=== PATIENT | female | born 1935 | race Hispanic/Latino ===

== ENCOUNTER 2017-01-10 00:49 | Emergency (ER) | payer MEDICARE ==
[2017-01-10 00:49] VITALS: BMI 33.6
--- NOTE | 2017-01-10 01:33 | C.PDOC ---
History Of Present Illness Patient is a 81 year old female who presents to the ER with a complaint of right knee pain. Patient states she has had chronic pain on the right knee for weeks. Denies any recent injury or trauma. Chief Complaint (Nursing): Lower Extremity Problem/Injury History Per: Patient History/Exam Limitations: no limitations Onset/Duration Of Symptoms: Days (Chronic pain on right knee for weeks ) Current Symptoms Are (Timing): Still Present Severity: Mild Additional History Per: Patient Past Medical History Reviewed: Historical Data, Nursing Documentation, Vital Signs Vital Signs: Last Vital Signs Temp 97.4 F L 01/10/17 00:59 Pulse 79 01/10/17 00:59 Resp 20 01/10/17 00:59 BP 139/74 01/10/17 00:59 Pulse Ox 96 01/10/17 01:38 - Medical History PMH: Anxiety, Arthritis, Atrial Fibrillation, Cardia Arrhythmia, COPD, Depression, Diverticulitis, Gastritis, HTN, Hypercholesterolemia, Chronic Kidney Disease Surgical History: Hernia Repair - [facility] Procedures APPLICATION OF SPLINT (09/06/13) VACCINATION NEC (11/20/14) Family History: States: Unknown Family Hx - Social History Hx Tobacco Use: No Hx Alcohol Use: No Hx Substance Use: No - Immunization History Hx Tetanus Toxoid Vaccination: No Hx Influenza Vaccination: No Hx Pneumococcal Vaccination: Yes Review Of Systems Except As Marked, All Systems Reviewed And Found Negative. Constitutional: Negative for: Fever, Chills Musculoskeletal: Positive for: Leg Pain (Right knee pain) Physical Exam - Physical Exam Appears: Well, Non-toxic, Other (Mild distress) Skin: Normal Color, Warm, Dry Head: Atraumatic, Normacephalic Oral Mucosa: Moist Cardiovascular: Rhythm Regular Respiratory: Normal Breath Sounds, No Accessory Muscle Use, No Rales, No Rhonchi , No Wheezing Gastrointestinal/Abdominal: Soft, No Tenderness, No Distention, No Guarding, No Rebound Extremity: Pedal Edema, Swelling (Right knee) Neurological/Psych: Oriented x3, Normal Speech, Normal Cognition ED Course And Treatment - Laboratory Results Result Diagrams: 01/10/17 02:45 01/10/17 02:45 O2 Sat by Pulse Oximetry: 96 (Room air) Pulse Ox Interpretation: Normal Progress Note: Blood work, X-ray of right knee, and urinalysis ordered. Toradol IM administered. Disposition Counseled Patient/Family Regarding: Diagnosis - Disposition Referrals: [facility] [Outside] Disposition: HOME/ ROUTINE Disposition Time: 03:59 Condition: STABLE Prescriptions: Naproxen [Naprosyn Tab] 375 mg PO TIDPC #20 tab Instructions: Knee Pain (ED), Swollen Knee Joint (ED) - POA Present On Arrival: None - Clinical Impression Clinical Impression: Joint pain, Joint swelling - Scribe Statement The provider has reviewed the documentation as recorded by the Scribfestus Lara All medical record entries made by the Madihaibfestus were at my direction and personally dictated by me. I have reviewed the chart and agree that the record accurately reflects my personal performance of the history, physical exam, medical decision making, and the department course for this patient. I have also personally directed, reviewed, and agree with the discharge instructions and disposition.
[2017-01-10 02:49] LABS: BASO % 0.2 % (0.0-2.0); EOS # 0.7 K/uL (0.0-0.7); EOS % 8.5 % (0.0-4.0); HEMATOCRIT 33.5 % (34.0-47.0); LYMPH # 2.3 K/uL (1.0-4.3); LYMPH % 27.4 % (20.0-40.0); MEAN CELL VOLUME 90.8 fL (81.0-99.0); MEAN CORPUSCULAR HEMOGLOBIN 30.8 pg (27.0-31.0); MEAN PLATELET VOLUME 8.1 fL (7.2-11.7); MONO # 1.2 K/uL (0.0-0.8); MONO % 14.3 % (0.0-10.0); RED CELL DISTRIBUTION WIDTH 13.8 % (11.5-14.5); WHITE BLOOD COUNT 8.4 K/uL (4.8-10.8)
[2017-01-10 02:57] LABS: CHLORIDE 104 mmol/L (98-107); POTASSIUM 4.3 mmol/L (3.6-5.2); SODIUM 139 mmol/L (132-148)
[2017-01-10 02:59] LABS: GFR AFRICAN-AMERICAN > 60
[2017-01-10 03:00] LABS: ALB/GLOB RATIO 0.7 (1.0-2.1); ALKALINE PHOSPHATASE 140 U/L (38-126); ALT/SGPT 35 U/L (9-52); AST/SGOT 23 U/L (14-36); BILIRUBIN,TOTAL 0.5 mg/dL (0.2-1.3); BLOOD UREA NITROGEN 25 mg/dL (7-17); CALCIUM 8.7 mg/dl (8.6-10.4); CARBON DIOXIDE 24 mmol/L (22-30); GLUCOSE,RANDOM 90 mg/dL (65-105); TOTAL PROTEIN 7.1 g/dL (6.3-8.3)
[2017-01-10 05:19] VITALS: BP 130/87; PULSE 72; RESP 18; TEMP 97.7; O2SAT 97
--- NOTE | 2017-01-10 16:26 | RAD ---
PROCEDURE: Right knee dated 01/10/2017. HISTORY: pain and swelling COMPARISON: None. FINDINGS: BONES: No evidence of acute displaced fracture nor dislocation. The osseous structures appear intact. Tricompartmental degenerative joint changes most notably affecting the medial and patellofemoral compartments. Medium sized anterior superior patella enthesophyte noted. There appears to be mild prepatellar soft tissue swelling. JOINTS: As above JOINT EFFUSION: Assessment for joint effusion is somewhat limited due to over flexion in the lateral projection however small suprapatellar joint effusion may be present OTHER FINDINGS: Diffuse infiltration changes of the subcutaneous fat nonspecific IMPRESSION: No acute fractures. Tricompartmental degenerative osteoarthritis as described
== END 2017-01-10 05:19 | disposition home or self-care (01) ==
LOC: C.ER 00:49
DX: M25.461 Effusion, right knee (principal); M25.561 Pain in right knee
CPT/HCPCS: 73562; 80053; 85025; 96372; 99284; J1885

== ENCOUNTER 2017-04-10 00:23 | Emergency (ER) | payer MEDICARE, OTHER ==
[2017-04-10 00:24] VITALS: BMI 33.6
[2017-04-10 00:36] VITALS: TEMP 98.1
--- NOTE | 2017-04-10 01:38 | C.PDOC ---
History Of Present Illness Patient is an 81 year old female who presents to the ER with a complaint of anxiety and palpitations. Patient states she took half of her usual xanax since she is running low and wants to ration them. Patient arrived via EMS and had 30 mg of cardizem [employer]. Patient has been seen in the ER before for multiple vague complaints. Denies chest pain, SOB or nausea. Time Seen by Provider: 04/10/17 01:31 Chief Complaint (Nursing): Anxiety History Per: Patient History/Exam Limitations: no limitations Onset/Duration Of Symptoms: Hrs Current Symptoms Are (Timing): Still Present Initiating Event: Other (Not known) Current Respiratory Medications: See Home Med List Associated Symptoms: Anxiety. denies: Chest Pain, Other (SOB, Nausea) Recent travel outside of the [place]: No Past Medical History Reviewed: Historical Data, Nursing Documentation, Vital Signs Vital Signs: Last Vital Signs Temp 98.1 F 04/10/17 00:29 Pulse 71 04/10/17 00:29 Resp 20 04/10/17 00:29 BP 196/107 H 04/10/17 00:29 Pulse Ox 95 04/10/17 01:38 - Medical History PMH: Anxiety, Arthritis, Atrial Fibrillation, Cardia Arrhythmia, COPD, Depression, Diverticulitis, Gastritis, HTN, Hypercholesterolemia, Chronic Kidney Disease Surgical History: Hernia Repair - [facility] Procedures APPLICATION OF SPLINT (09/06/13) VACCINATION NEC (11/20/14) Family History: States: Unknown Family Hx - Social History Hx Tobacco Use: No Hx Alcohol Use: No Hx Substance Use: No - Immunization History Hx Tetanus Toxoid Vaccination: No Hx Influenza Vaccination: No Hx Pneumococcal Vaccination: Yes Review Of Systems Cardiovascular: Positive for: Palpitations. Negative for: Chest Pain Respiratory: Negative for: Shortness of Breath Gastrointestinal: Negative for: Nausea Psych: Positive for: Anxiety Physical Exam - Physical Exam Appears: Non-toxic, No Acute Distress Skin: Normal Color, Warm, Dry Head: Atraumatic, Normacephalic Oral Mucosa: Moist Chest: Symmetrical, No Tenderness Cardiovascular: Rhythm Regular, No Murmur Respiratory: Normal Breath Sounds, No Rales, No Rhonchi, No Wheezing Gastrointestinal/Abdominal: Soft, No Tenderness Neurological/Psych: Oriented x3, Normal Speech, Normal Cognition ED Course And Treatment O2 Sat by Pulse Oximetry: 95 (Room air) Pulse Ox Interpretation: Normal Progress Note: Xanax administered. Patient is refusing blood work. Medical Decision Making Medical Decision Making: mild palpitations may be anxiety or mild elev HR, well controlled prior to arrival with pt's Cardizem 30 mg PO Anxiety underlying, pt is rationing her Xanax 0.5 mg tabs before getting refills from PMD Disposition Doctor Will See Patient In The: Office Counseled Patient/Family Regarding: Studies Performed, Diagnosis - Disposition Referrals: [facility] [Outside] [facility] [Outside] Disposition: HOME/ ROUTINE Disposition Time: 01:38 Condition: GOOD Additional Instructions: take your meds as you are prescribed Follow-up with your PMD as usual Instructions: Anxiety (ED) - Clinical Impression Clinical Impression: Palpitations, Anxiety - Scribe Statement The provider has reviewed the documentation as recorded by the Scribfestus Lara All medical record entries made by the Madihaibe were at my direction and personally dictated by me. I have reviewed the chart and agree that the record accurately reflects my personal performance of the history, physical exam, medical decision making, and the department course for this patient. I have also personally directed, reviewed, and agree with the discharge instructions and disposition.
[2017-04-10 01:54] VITALS: BP 150/62; PULSE 86; RESP 17; O2SAT 98
== END 2017-04-10 01:58 | disposition home or self-care (01) ==
LOC: C.ER 00:23
DX: F41.9 Anxiety disorder, unspecified (principal); R00.2 Palpitations

== ENCOUNTER 2017-04-27 12:40 | Observation (INO) | payer MEDICARE ==
[2017-04-27 12:46] VITALS: BMI 32.9
[2017-04-27 12:50] VITALS: RESP 18; O2SAT 96
--- NOTE | 2017-04-27 13:50 | C.PDOC ---
History Of Present Illness 81 y/o female, presents to ED with c/o sudden dizziness while laying in bed at 4 :00 AM this morning. Patient denies visual disturbances, chest pain, palpitations, shortness of breath. Patient states dizziness continued after waking up this morning, noting that dizziness worsens with head movement. Denies nausea, vomiting, photophobia, or other associated symptoms at this time. Time Seen by Provider: 04/27/17 13:26 Chief Complaint (Nursing): Dizziness/Lightheaded History Per: Patient History/Exam Limitations: no limitations Onset/Duration Of Symptoms: Hrs Current Symptoms Are (Timing): Still Present Activity At Onset Of Symptoms: Lying Associated Symptoms Preceding Syncopal Episode: No Predromal Symptoms (Sudden Onset) Seizure Or Post-ictal Symptoms: None Fall Associated With With Symptoms: No Recent travel outside of the [place]: No Past Medical History Reviewed: Historical Data, Nursing Documentation, Vital Signs Vital Signs: Last Vital Signs Temp 98 F 04/27/17 12:46 Pulse 57 L 04/27/17 12:46 Resp 18 04/27/17 12:46 BP 1438/67 H 04/27/17 12:46 Pulse Ox 96 04/27/17 13:52 - Medical History PMH: Anxiety, Arthritis, Atrial Fibrillation, Cardia Arrhythmia, COPD, Depression, Diverticulitis, Gastritis, HTN, Hypercholesterolemia, Chronic Kidney Disease Surgical History: Hernia Repair - [facility] Procedures APPLICATION OF SPLINT (09/06/13) VACCINATION NEC (11/20/14) Family History: States: Unknown Family Hx - Social History Hx Tobacco Use: No Hx Alcohol Use: No Hx Substance Use: No - Immunization History Hx Tetanus Toxoid Vaccination: No Hx Influenza Vaccination: No Hx Pneumococcal Vaccination: Yes Review Of Systems Except As Marked, All Systems Reviewed And Found Negative. Constitutional: Negative for: Fever, Chills Eyes: Negative for: Vision Change Cardiovascular: Negative for: Chest Pain, Palpitations Gastrointestinal: Negative for: Nausea, Vomiting Musculoskeletal: Negative for: Neck Pain Skin: Negative for: Rash Neurological: Positive for: Dizziness. Negative for: Weakness, Numbness, Headache Physical Exam - Physical Exam Appears: Non-toxic, No Acute Distress Skin: Warm, Dry Head: Atraumatic, Normacephalic Eye(s): bilateral: Normal Inspection, PERRL, EOMI Oral Mucosa: Moist Neck: Supple Chest: Symmetrical Cardiovascular: No Murmur, Other (bigemini, rate of 60 ) Respiratory: Normal Breath Sounds, No Rales, No Rhonchi, No Wheezing Gastrointestinal/Abdominal: Normal Exam, Soft, No Tenderness, No Guarding, No Rebound Back: Normal Inspection Extremity: Normal ROM, Capillary Refill (< 2 sec.) Extremity: Bilateral: Normal Color And Temperature Pulses: Left Carotid: Normal (no bruit), Right Carotid: Normal (no bruit) Neurological/Psych: Oriented x3, Normal Speech, Normal Cognition ED Course And Treatment - Laboratory Results Result Diagrams: 04/27/17 14:14 04/27/17 14:14 Lab Interpretation: Abnormal Interpretation Of Abnormal: BUN 33, HCO3 21, Urine WBC 30 with 3+ leukocyte esterase. ECG: Interpreted By Me ECG Rhythm: Sinus Bradycardia (with PVCs and LVH) ECG Interpretation: Abnormal O2 Sat by Pulse Oximetry: 96 (RA) Pulse Ox Interpretation: Normal Progress Note: Pt notes she is on cardizem and metoprolol but stated no cardiac history during initial questioning. CxR, EKG, bloodwork, orthostatic vitals set ordered. Patient has orthostatic changes with BP decreased to 116/70 while standing. Reevaluation Time: 15:02 Reassessment Condition: Improved - Physician Consult Information Time Consulting Physician Contacted: 15:02 Physician Contacted: Gabriele Hutchinson Outcome Of Conversation: Patient to be admitted for rehydration and evaluation of bradycardia and adjustment of cardiac medications. Disposition - Disposition Disposition: HOSPITALIZED Disposition Time: 15:07 Condition: STABLE - POA Present On Arrival: None - Clinical Impression Clinical Impression: UTI (urinary tract infection), Dizziness, Bradycardia - Scribe Statement The provider has reviewed the documentation as recorded by the Allison [facility] Provider Attestation: All medical record entries made by the Madihaibfestus were at my direction and personally dictated by me. I have reviewed the chart and agree that the record accurately reflects my personal performance of the history, physical exam, medical decision making, and the department course for this patient. I have also personally directed, reviewed, and agree with the discharge instructions and disposition.
[2017-04-27 14:19] LABS: BASO # 0.1 K/uL (0.0-0.2); BASO % 0.9 % (0.0-2.0); EOS # 0.3 K/uL (0.0-0.7); EOS % 2.5 % (0.0-4.0); LYMPH # 3.1 K/uL (1.0-4.3); LYMPH % 31.2 % (20.0-40.0); MEAN CORPUSCULAR HEMOGLOBIN 30.6 pg (27.0-31.0); MEAN PLATELET VOLUME 9.9 fL (7.2-11.7); NEUT # 5.5 K/uL (1.8-7.0); NEUT % 55.4 % (50.0-75.0); NRBC % 0.1 % (0.0-2.0); RBC 4.44 Mil/uL (3.80-5.20); RED CELL DISTRIBUTION WIDTH 15.1 % (11.5-14.5); WHITE BLOOD COUNT 9.9 K/uL (4.8-10.8)
[2017-04-27 14:21] LABS: HEMOGLOBIN 13.6 g/dL (11.0-16.0); MEAN CELL VOLUME 92.8 fL (81.0-99.0)
[2017-04-27 14:29] LABS: ALBUMIN 3.3 g/dL (3.5-5.0)
[2017-04-27 14:31] LABS: GFR AFRICAN-AMERICAN > 60; GFR NON-AFRICAN AMERICAN > 60
[2017-04-27 14:32] LABS: ALT/SGPT 19 U/L (9-52); AST/SGOT 21 U/L (14-36); BLOOD UREA NITROGEN 33 mg/dL (7-17); CALCIUM 8.8 mg/dl (8.6-10.4); MAGNESIUM 2.1 mg/dL (1.6-2.3)
[2017-04-27 14:33] LABS: SQUAMOUS EPITHIAL < 1 /hpf (0-5); URINE BACTERIA OCC (<OCC); URINE BILIRUBIN NEGATIVE (NEGATIVE); URINE BLOOD 1+ (NEGATIVE); URINE CLARITY Hazy (Clear); URINE COLOR Yellow (YELLOW); URINE GLUCOSE (UA) NORMAL (Normal); URINE LEUKOCYTE ESTERASE 3+ Leu/uL (Negative); URINE NITRATE NEGATIVE (NEGATIVE); URINE PROTEIN NEGATIVE (NEGATIVE); URINE UROBILINOGEN NORMAL mg/dL (0.2-1.0); WBC CLUMPS FEW /hpf
--- NOTE | 2017-04-27 14:41 | RAD ---
HISTORY: SOB COMPARISON: Chest x-ray performed 12/28/16 TECHNIQUE: Chest, one view. FINDINGS: Examination limited by habitus and patient obliquity. LUNGS: Right costophrenic angle is excluded from view. Bibasilar atelectasis or infiltrates. Please note that chest x-ray has limited sensitivity for the detection of pulmonary masses. PLEURA: No significant pleural effusion identified. No definite pneumothorax. CARDIOVASCULAR: Cardiomegaly. Atherosclerotic calcifications of the aorta. OSSEOUS STRUCTURES: Osseous demineralization. Degenerative changes. Acromioclavicular arthropathy. VISUALIZED UPPER ABDOMEN: Unremarkable. OTHER FINDINGS: None. IMPRESSION: Bibasilar atelectasis or infiltrates.
[2017-04-27] MEDS ORDERED: Sodium Chloride 0.9% 1,000 ML IV ONE (14:59)
--- NOTE | 2017-04-27 15:55 | CT ---
PROCEDURE: CT HEAD WITHOUT CONTRAST. HISTORY: vertigo COMPARISON: None available. TECHNIQUE: Axial computed tomography images were obtained through the head/brain without intravenous contrast. Radiation dose: Total exam DLP = 943.17 mGy-cm. This CT exam was performed using one or more of the following dose reduction techniques: Automated exposure control, adjustment of the mA and/or kV according to patient size, and/or use of iterative reconstruction technique. FINDINGS: HEMORRHAGE: No intracranial hemorrhage. BRAIN: No mass effect or edema. No significant atrophy. Mild periventricular white matter lucency consistent with chronic microvascular ischemic change. No evidence of acute infarct. VENTRICLES: Unremarkable. No hydrocephalus. CALVARIUM: Unremarkable. PARANASAL SINUSES: Unremarkable as visualized. No significant inflammatory changes. MASTOID AIR CELLS: No mastoid effusion. Note is made of soft tissue density within the external auditory canal bilaterally, adjacent to the tympanic membrane. Most likely this represents cerumen. OTHER FINDINGS: None. IMPRESSION: No intracranial mass, hemorrhage or evidence of acute infarct. Mild chronic white matter ischemic change.
[2017-04-27 16:46] VITALS: BP 152/92; TEMP 97.7
[2017-04-27] MEDS ORDERED: Albuterol HFA 90 mcg/actuation (8 g) IH PRN (19:07)
[2017-04-27 20:02] VITALS: PULSE 58
[2017-04-27] MEDS ORDERED: cefTRIAXone IV 1 gm in Dextros 50 ML IVPB SCH (21:00)
--- NOTE | 2017-04-27 22:43 | CP.PCM.HP ---
History of Present Illness - History of Present Illness History of Present Illness: Cheif complain: Dizziness 81 y/o female,known hypertensive, PMh of OA, hyperlipidemia presents to ED with c/o sudden dizziness while laying in bed at 4:00 AM this morning. Patient denies visual disturbances, chest pain, palpitations, shortness of breath. Patient states dizziness continued after waking up this morning, noting that dizziness worsens with head movement. Denies chest pain, paliptations, SOB, spinning sensation, nausea, vomiting, photophobia, or other associated symptoms at this time. Present on Admission - Present on Admission Any Indicators Present on Admission: Yes Review of Systems - Review of Systems Systems not reviewed;Unavailable: Acuity of Condition - Constitutional Constitutional: Fatigue, Headache, Lethargy. absent: As Per HPI, Anorexia, Chills, Daytime Sleepiness, Excessive Sweating, Fever, Frequent Falls, Increased Appetite, Malaise, Night Sweats, Snoring, Sleep Apnea, Weight Gain, Weight Loss, Weakness, Other - EENT Eyes: absent: As Per HPI, Blind Spots, Blurred Vision, Change in Vision, Decreased Night Vision, Diplopia, Discharge, Dry Eye, Exophthalmos, Floaters, Irritation, Itchy Eyes, Loss of Peripheral Vision, Pain, Photophobia, Requires Corrective Lenses, Sees Flashes, Spots in Vision, Tunnel Vision, Other Visual Disturbances, Loss of Vision, Other Nose/Mouth/Throat: absent: As Per HPI, Epistaxis, Nasal Congestion, Nasal Discharge, Nasal Obstruction, Nasal Trauma, Nose Pain, Post Nasal Drip, Sinus Pain, Sinus Pressure, Bleeding Gums, Change in Voice, Dental Pain, Dry Mouth, Dysphagia, Halitosis, Hoarsness, Lip Swelling, Mouth Lesions, Mouth Pain, Odynophagia, Sore Throat, Throat Swelling, Tongue Swelling, Facial Pain, Neck Pain, Neck Mass, Other - Cardiovascular Cardiovascular: absent: As Per HPI, Acrocyanosis, Chest Pain, Chest Pain at Rest , Chest Pain with Activity, Claudication, Diaphoresis, Dyspnea, Dyspnea on Exertion, Edema, Irregular Heart Rhythm, Pain Radiating to Arm/Neck/Jaw, Leg Edema, Leg Ulcers, Lightheadedness, Orthopnea, Palpitations, Paroxysmal Nocturnal Dyspnea, Pedal Edema, Radiating Pain, Rapid Heart Rate, Slow Heart Rate, Syncope, Other - Genitourinary Genitourinary: absent: As Per HPI, Change in Urinary Stream, Difficulty Urinating, Dysuria, Flank Pain, Hematuria, Pyuria, Nocturia, Urinary Incontinence, Urinary Frequency, Urinary Hesitance, Urinary Urgency, Voiding Freq/Small Amts, Freq UTI, Hx Renal/Bladder Calculi, Hx /Renal Surgery, Bladder Distension, Other - Neurological Neurological: Dizziness, Weakness Past Patient History - Infectious Disease Hx of Infectious Diseases: None - Past Medical History & Family History Past Medical History?: Yes - Past Social History Smoking Status: Never Smoked - CARDIAC Hx Atrial Fibrillation: Yes Hx Cardia Arrhythmia: Yes Hx Hypercholesterolemia: Yes Hx Hypertension: Yes - PULMONARY Hx Chronic Obstructive Pulmonary Disease (COPD): Yes - NEUROLOGICAL Hx Neurological Disorder: No - HEENT Hx HEENT Problems: No - RENAL Hx Chronic Kidney Disease: Yes - ENDOCRINE/METABOLIC Hx Endocrine Disorders: No - HEMATOLOGICAL/ONCOLOGICAL Hx Blood Disorders: No Hx Hepatitis A: No Hx Hepatitis B: No Hx Hepatitis C: No - INTEGUMENTARY Hx Dermatological Problems: No - MUSCULOSKELETAL/RHEUMATOLOGICAL Hx Arthritis: Yes Hx Falls: No (denies) - GASTROINTESTINAL Hx Diverticulitis: Yes Hx Gastritis: Yes - GENITOURINARY/GYNECOLOGICAL Hx Genitourinary Disorders: Yes Hx Urinary Tract Infection: Yes - PSYCHIATRIC Hx Anxiety: Yes Hx Depression: Yes Hx Substance Use: No - SURGICAL HISTORY Hx Surgeries: Yes Hx Herniorrhaphy: Yes 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) - ANESTHESIA Hx Anesthesia: Yes Hx Anesthesia Reactions: No Hx Malignant Hyperthermia: No Has any member of the family had a problem w/ anesthesia?: No Meds Allergies/Adverse Reactions: Allergies Allergy/AdvReac Type Severity Reaction Status Date / Time Sulfa (Sulfonamide Allergy Verified 04/27/17 12:43 Antibiotics) Physical Exam - Constitutional Appears: No Acute Distress - Head Exam Head Exam: ATRAUMATIC, NORMAL INSPECTION, NORMOCEPHALIC - Eye Exam Eye Exam: EOMI, Normal appearance, PERRL Pupil Exam: NORMAL ACCOMODATION, PERRL - ENT Exam ENT Exam: Mucous Membranes Moist, Normal Exam - Respiratory Exam Respiratory Exam: Clear to Auscultation Bilateral, NORMAL BREATHING PATTERN - Cardiovascular Exam Cardiovascular Exam: Bradycardia, +S1, +S2 Additional comments: S3 positive - GI/Abdominal Exam GI & Abdominal Exam: Normal Bowel Sounds, Soft. absent: Tenderness - Rectal Exam Rectal Exam: Deferred Results - Vital Signs Recent Vital Signs: Last Vital Signs Temp 97.7 F 04/27/17 16:45 Pulse 58 L 04/27/17 18:00 Resp 18 04/27/17 16:45 BP 152/92 H 04/27/17 16:45 Pulse Ox 96 04/27/17 16:45 - Labs Result Diagrams: 04/27/17 14:14 04/27/17 14:14 Labs: Laboratory Results - last 24 hr 04/27/17 19:24 TSH 3rd Generation 3.41 Assessment & Plan (1) Anxiety Status: Acute (2) Bradycardia Assessment and Plan: likely due to cardizem and metoprolol, hold her cardizem and metoprolol Status: Acute (3) Dizziness Status: Acute (4) Osteoarthritis Status: Acute
--- NOTE | 2017-04-28 14:11 | CP.PCM.DIS ---
Provider - Provider Date of Admission: 04/27/17 15:08 Attending physician: Gabriele Hutchinson MD Time Spent in preparation of Discharge (in minutes): 54 Diagnosis - Discharge Diagnosis (1) Anxiety Status: Acute (2) Bradycardia Status: Acute (3) Dizziness Status: Acute (4) Osteoarthritis Status: Acute Hospital Course - Lab Results Lab Results: Most Recent Lab Values WBC 9.9 K/uL (4.8-10.8) 04/27/17 14:14 RBC 4.44 Mil/uL (3.80-5.20) 04/27/17 14:14 Hgb 13.6 g/dL (11.0-16.0) D 04/27/17 14:14 Hct 41.2 % (34.0-47.0) 04/27/17 14:14 MCV 92.8 fL (81.0-99.0) D 04/27/17 14:14 MCH 30.6 pg (27.0-31.0) 04/27/17 14:14 MCHC 33.0 g/dL (33.0-37.0) 04/27/17 14:14 RDW 15.1 % (11.5-14.5) H 04/27/17 14:14 Plt Count 202 K/uL (130-400) D 04/27/17 14:14 MPV 9.9 fL (7.2-11.7) 04/27/17 14:14 Neut % (Auto) 55.4 % (50.0-75.0) 04/27/17 14:14 Lymph % (Auto) 31.2 % (20.0-40.0) 04/27/17 14:14 Randolph % (Auto) 10.0 % (0.0-10.0) 04/27/17 14:14 Eos % (Auto) 2.5 % (0.0-4.0) 04/27/17 14:14 Baso % (Auto) 0.9 % (0.0-2.0) 04/27/17 14:14 Neut # 5.5 K/uL (1.8-7.0) 04/27/17 14:14 Lymph # 3.1 K/uL (1.0-4.3) 04/27/17 14:14 Randolph # 1.0 K/uL (0.0-0.8) H 04/27/17 14:14 Eos # 0.3 K/uL (0.0-0.7) 04/27/17 14:14 Baso # 0.1 K/uL (0.0-0.2) 04/27/17 14:14 Sodium 138 mmol/L (132-148) 04/27/17 14:14 Potassium 4.6 mmol/L (3.6-5.2) 04/27/17 14:14 Chloride 108 mmol/L (98-107) H 04/27/17 14:14 Carbon Dioxide 21 mmol/L (22-30) L 04/27/17 14:14 Anion Gap 14 (10-20) 04/27/17 14:14 BUN 33 mg/dL (7-17) H 04/27/17 14:14 Creatinine 0.8 MG/DL (0.7-1.2) 04/27/17 14:14 Est GFR ( Amer) > 60 04/27/17 14:14 Est GFR (Non-Af Amer) > 60 04/27/17 14:14 Random Glucose 108 mg/dL (65-105) H 04/27/17 14:14 Calcium 8.8 mg/dl (8.6-10.4) 04/27/17 14:14 Magnesium 2.1 mg/dL (1.6-2.3) 04/27/17 14:14 Total Bilirubin 0.9 mg/dL (0.2-1.3) 04/27/17 14:14 AST 21 U/L (14-36) 04/27/17 14:14 ALT 19 U/L (9-52) 04/27/17 14:14 Alkaline Phosphatase 126 U/L (38-126) 04/27/17 14:14 Troponin I < 0.0120 ng/mL (0.00-0.120) 04/27/17 14:14 Total Protein 6.6 g/dL (6.3-8.3) 04/27/17 14:14 Albumin 3.3 g/dL (3.5-5.0) L 04/27/17 14:14 Globulin 3.2 gm/dL (2.2-3.9) 04/27/17 14:14 Albumin/Globulin Ratio 1.0 (1.0-2.1) 04/27/17 14:14 TSH 3rd Generation 3.41 mIU/L (0.46-4.68) 04/27/17 19:24 Urine Color Yellow (YELLOW) 04/27/17 14:09 Urine Clarity Hazy (Clear) 04/27/17 14:09 Urine pH 6.0 (5.0-8.0) 04/27/17 14:09 Ur Specific Dixon 1.004 (1.003-1.030) 04/27/17 14:09 Urine Protein Negative mg/dL (NEGATIVE) 04/27/17 14:09 Urine Glucose (UA) Normal mg/dL (Normal) 04/27/17 14:09 Urine Ketones Negative mg/dL (NEGATIVE) 04/27/17 14:09 Urine Blood 1+ (NEGATIVE) H 04/27/17 14:09 Urine Nitrate Negative (NEGATIVE) 04/27/17 14:09 Urine Bilirubin Negative (NEGATIVE) 04/27/17 14:09 Urine Urobilinogen Normal mg/dL (0.2-1.0) 04/27/17 14:09 Ur Leukocyte Esterase 3+ Jorge Luis/uL (Negative) H 04/27/17 14:09 Urine WBC (Auto) 30 /hpf (0-5) H 04/27/17 14:09 Urine RBC (Auto) 5 /hpf (0-3) H 04/27/17 14:09 Urine WBC Clumps (Auto) Few /hpf (NONE) H 04/27/17 14:09 Ur Squamous Epith Cells < 1 /hpf (0-5) 04/27/17 14:09 Urine Bacteria Occ (<OCC) H 04/27/17 14:09 Discharge Exam - Head Exam Head Exam: ATRAUMATIC, NORMAL INSPECTION, NORMOCEPHALIC Discharge Plan - Follow Up Plan Condition: STABLE Disposition: AGAINST MEDICAL ADVICE
--- NOTE | 2017-04-29 07:05 | CARD ---
APPROVED REPORT EKG Measurement Heart [id number] <Conclusion> Sinus bradycardia with occasional premature ventricular complexes Moderate voltage criteria for LVH, may be normal variant Borderline ECG
== END 2017-04-27 23:26 | disposition left against medical advice (07) ==
LOC: C.ER 12:40 → C.9E 15:08 → C.6T 16:02 → C.5T 16:29
PROVIDERS: ADMIT Internal Medicine; ATTEND Internal Medicine
DX: R00.1 Bradycardia, unspecified (principal); R42 Dizziness and giddiness; E78.5 Hyperlipidemia, unspecified; F41.9 Anxiety disorder, unspecified; N39.0 Urinary tract infection, site not specified
CPT/HCPCS: 70450; 71010; 80053; 81001; 83735; 84443; 84484; 85025; 87086; 96360; G0378; J0696; J7040

== ENCOUNTER 2017-04-29 10:34 | Emergency (ER) | payer MEDICARE ==
[2017-04-29 10:36] VITALS: BMI 31.8
[2017-04-29] MEDS ORDERED: Sodium Chloride 0.9% 1,000 ML IV ONE (10:55)
[2017-04-29] MEDS ORDERED: Sodium Chloride 0.9% 1,000 ML ONE (11:17)
[2017-04-29 11:24] LABS: BASO # 0.1 K/uL (0.0-0.2); EOS # 0.3 K/uL (0.0-0.7); EOS % 3.5 % (0.0-4.0); HEMOGLOBIN 13.6 g/dL (11.0-16.0); LYMPH % 32.7 % (20.0-40.0); MEAN CELL VOLUME 92.8 fL (81.0-99.0); MEAN CORPUSCULAR HEMOGLOBIN 30.4 pg (27.0-31.0); MEAN CORPUSCULAR HGB CONC 32.7 g/dL (33.0-37.0); MEAN PLATELET VOLUME 9.5 fL (7.2-11.7); MONO # 0.8 K/uL (0.0-0.8); MONO % 8.6 % (0.0-10.0); NEUT # 4.9 K/uL (1.8-7.0); NEUT % 54.2 % (50.0-75.0); NRBC % 0.1 % (0.0-2.0); RBC 4.47 Mil/uL (3.80-5.20)
[2017-04-29 11:34] LABS: ALBUMIN 3.2 g/dL (3.5-5.0)
[2017-04-29 11:36] LABS: GFR AFRICAN-AMERICAN > 60; GFR NON-AFRICAN AMERICAN > 60
[2017-04-29 11:37] LABS: ALT/SGPT 23 U/L (9-52); AST/SGOT 16 U/L (14-36); BLOOD UREA NITROGEN 22 mg/dL (7-17); CALCIUM 9.1 mg/dl (8.6-10.4)
[2017-04-29 12:03] LABS: SQUAMOUS EPITHIAL 3 /hpf (0-5); URINE BACTERIA OCC (<OCC); URINE BILIRUBIN NEGATIVE (NEGATIVE); URINE BLOOD 1+ (NEGATIVE); URINE CLARITY Hazy (Clear); URINE COLOR Yellow (YELLOW); URINE GLUCOSE (UA) NORMAL (Normal); URINE LEUKOCYTE ESTERASE 3+ Leu/uL (Negative); URINE NITRATE NEGATIVE (NEGATIVE); URINE PROTEIN NEGATIVE (NEGATIVE); URINE UROBILINOGEN NORMAL mg/dL (0.2-1.0)
--- NOTE | 2017-04-29 12:19 | C.PDOC ---
History Of Present Illness 81 y/o female c/o dizziness for 3 days. Patient states dizziness worsened after taking Losartan. Patient describes room-spinning sensation. Otherwise, denies headache, nausea, vomiting, chest pain, or other associated symptoms. Notes that dizziness worsens upon standing up. Recently evaluated in ER for similar symptoms on 04/27/17. Time Seen by Provider: 04/29/17 10:46 Chief Complaint (Nursing): Dizziness/Lightheaded History Per: Patient History/Exam Limitations: no limitations Onset/Duration Of Symptoms: Days Current Symptoms Are (Timing): Still Present Seizure Or Post-ictal Symptoms: None Fall Associated With With Symptoms: No Recent travel outside of the [place]: No Past Medical History Reviewed: Historical Data, Nursing Documentation, Vital Signs Vital Signs: Last Vital Signs Temp 98.2 F 04/29/17 13:01 Pulse 63 04/29/17 13:01 Resp 16 04/29/17 13:01 BP 123/73 04/29/17 13:01 Pulse Ox 97 04/29/17 17:47 - Medical History PMH: Anxiety, Arthritis, Atrial Fibrillation, Cardia Arrhythmia, COPD, Depression, Diverticulitis, Gastritis, HTN, Hypercholesterolemia, Chronic Kidney Disease Surgical History: Hernia Repair - [facility] Procedures APPLICATION OF SPLINT (09/06/13) VACCINATION NEC (11/20/14) Family History: States: Unknown Family Hx - Social History Hx Tobacco Use: No Hx Alcohol Use: No Hx Substance Use: No - Immunization History Hx Tetanus Toxoid Vaccination: No Hx Influenza Vaccination: No Hx Pneumococcal Vaccination: No Review Of Systems Except As Marked, All Systems Reviewed And Found Negative. Constitutional: Negative for: Fever, Chills Cardiovascular: Negative for: Chest Pain, Palpitations Respiratory: Negative for: Cough, Shortness of Breath, Wheezing Gastrointestinal: Negative for: Nausea, Vomiting, Abdominal Pain Skin: Negative for: Rash Neurological: Positive for: Dizziness. Negative for: Weakness, Numbness, Headache Physical Exam - Physical Exam Appears: Non-toxic, No Acute Distress Skin: Normal Color, Warm, Dry Head: Atraumatic, Normacephalic Eye(s): bilateral: Normal Inspection, PERRL, EOMI Ear(s): Bilateral: Normal Nose: Normal Oral Mucosa: Moist Neck: Normal ROM, No Paracervical Tenderness, Supple Chest: Symmetrical Cardiovascular: Rhythm Regular Respiratory: Normal Breath Sounds, No Rales, No Rhonchi, No Wheezing Gastrointestinal/Abdominal: Soft, No Tenderness, No Guarding, No Rebound Back: Normal Inspection Extremity: Normal ROM, No Pedal Edema, Capillary Refill (< 2 sec.) Neurological/Psych: Oriented x3, Normal Speech, Normal Cranial Nerves, No Cerebellar Signs ED Course And Treatment - Laboratory Results Result Diagrams: 04/29/17 10:54 04/29/17 10:54 Lab Interpretation: No Acute Changes ECG: Interpreted By Me ECG Rhythm: Sinus Bradycardia ECG Interpretation: No Acute Changes Rate From EC (bpm) O2 Sat by Pulse Oximetry: 97 (RA) Pulse Ox Interpretation: Normal Medical Decision Making Medical Decision Making: Patient recently evaluated normal CT head and labs showed dehydration, UTI. Patient placed on observation admission PLAN: * Antivert, IV fluids * Orthostatic vitals * Reassess PROGRESS: Patient has orthostatic changes with BP decrease while standing. Patient treated with IV fluids and Antivert. BP and symptoms improved. Patient remained alert and oriented. She is still taking her medications. Advise patient to follow up with PCP Disposition Counseled Patient/Family Regarding: Diagnosis, Need For Followup, Rx Given - Disposition Referrals: Gabriele Hutchinson MD [Staff Provider] - Disposition: HOME/ ROUTINE Disposition Time: 12:33 Condition: IMPROVED Additional Instructions: Follow up with your primary medical doctor or clinic in 2-5 days for further evaluation. Take Meclizine up to three times per day as needed for dizziness. Return to the emergency department at any time if symptoms persist or worsen. Prescriptions: Meclizine [Meclizine*] 25 mg PO Q8 PRN #30 tab PRN Reason: Dizziness Instructions: Dizziness (ED) - POA Present On Arrival: None - Clinical Impression Clinical Impression: Dizziness - PA / FILTERATION OPERATOR / Resident Statement MD/DO has reviewed & agrees with the documentation as recorded. - Scribe Statement The provider has reviewed the documentation as recorded by the Allison Tracy All medical record entries made by the Madihaibfestus were at my direction and personally dictated by me. I have reviewed the chart and agree that the record accurately reflects my personal performance of the history, physical exam, medical decision making, and the department course for this patient. I have also personally directed, reviewed, and agree with the discharge instructions and disposition.
[2017-04-29 13:03] VITALS: BP 123/73; PULSE 63; RESP 16; TEMP 98.2
[2017-04-29 17:47] VITALS: O2SAT 97
--- NOTE | 2017-05-02 10:54 | CARD ---
APPROVED REPORT EKG Measurement Heart [id number] <Conclusion> Sinus bradycardia Moderate voltage criteria for LVH, may be normal variant Borderline ECG
== END 2017-04-29 13:36 | disposition home or self-care (01) ==
LOC: C.ER 10:34
DX: R42 Dizziness and giddiness (principal)
CPT/HCPCS: 80053; 81001; 85025; 93005; 96360; 96361; 99285; J7040

== ENCOUNTER 2018-02-05 02:24 | Inpatient (IN) | payer MEDICARE ==
--- NOTE | 2018-02-05 02:31 | C.PDOC ---
History Of Present Illness 82 year old female presents to the ED c/o palpitations. Patient states she has had this problem for years and has been taking Cardizem for it. Patient reports she took extra Cardizem today and feels her pulse is fast. Patient denies CP, SOB, nausea, vomit, headache, weakness, numbness. Time Seen by Provider: 02/05/18 02:31 History Per: Patient History/Exam Limitations: no limitations Onset/Duration Of Symptoms: Hrs Current Symptoms Are (Timing): Still Present Associated Symptoms: denies: Chest Pain Quality Of Symptoms: Rapid Heart Rate Severity: Severe Pain Scale Rating Of: 8 Exacerbating Factor(s): Pos: None Recent travel outside of the [place]: No Additional History Per: Patient Past Medical History Reviewed: Historical Data, Nursing Documentation, Vital Signs Vital Signs: Last Vital Signs Temp 97.9 F 02/05/18 02:35 Pulse 73 02/05/18 05:09 Resp 25 H 02/05/18 03:59 BP 110/80 02/05/18 03:59 Pulse Ox 94 L 02/05/18 03:59 - Medical History PMH: Anxiety, Arthritis, Atrial Fibrillation, Cardia Arrhythmia, COPD, Depression, Diverticulitis, Gastritis, HTN, Hypercholesterolemia, Chronic Kidney Disease Surgical History: Hernia Repair - [facility] Procedures APPLICATION OF SPLINT (09/06/13) VACCINATION NEC (11/20/14) Family History: States: Unknown Family Hx - Social History Hx Tobacco Use: No Hx Alcohol Use: No Hx Substance Use: No - Immunization History Hx Tetanus Toxoid Vaccination: No Hx Influenza Vaccination: No Hx Pneumococcal Vaccination: No Review Of Systems Constitutional: Negative for: Fever, Chills Eyes: Negative for: Vision Change ENT: Negative for: Throat Pain Cardiovascular: Positive for: Palpitations. Negative for: Chest Pain Respiratory: Negative for: Shortness of Breath Gastrointestinal: Negative for: Nausea, Vomiting Genitourinary: Negative for: Dysuria Skin: Negative for: Rash Neurological: Negative for: Headache, Dizziness Psych: Positive for: Anxiety Physical Exam - Physical Exam Appears: In Acute Distress, Other (extremely anxious) Skin: Warm, Dry Head: Normacephalic Eye(s): bilateral: Normal Inspection Nose: No Discharge Oral Mucosa: Moist Teeth: No Normal Dentition (Poor dentition ) Throat: Normal, No Erythema, No Exudate Neck: Normal ROM, Supple Chest: Symmetrical Cardiovascular: Rhythm Regular (tachycardic), No Murmur Respiratory: No Rales, Rhonchi (scattered), No Wheezing Gastrointestinal/Abdominal: Bowel Sounds (active), Soft, No Tenderness, No Guarding, No Rebound, Other (obese) Back: Normal Inspection Extremity: Normal ROM, No Tenderness, Pedal Edema (trace), Capillary Refill (< 2 seconds) Extremity: Bilateral: Atraumatic Pulses: Left Dorsalis Pedis: Normal, Right Dorsalis Pedis: Normal Neurological/Psych: Oriented x3, Normal Speech Gait: Unable To Assess ED Course And Treatment - Laboratory Results Result Diagrams: 02/05/18 04:06 02/05/18 03:06 ECG: Interpreted By Me, Viewed By Me ECG Rhythm: Sinus Tachycardia (141), R BBB, Nonspecific Changes (unchanged from 11/20/14) O2 Sat by Pulse Oximetry: 93 Pulse Ox Interpretation: Normal - Radiology CXR: Interpreted by Me, Viewed By Me CXR Interpretation: Yes: Cardiomegaly. No: Infiltrates, Fracture Progress Note: Plan: - EKG. - Labs. - CXR. - UA. 3:10 AM pt now nsr 74 bpm , feels much better. repeat ekg nsr 74 bpm, lvh, nsstt changes Critical Care Time - Critical Care Note Total Time (in mins): 30 Documented critical care: time excludes all time spent performing seperately billable procedures. Disposition Discussed With : Gabriele Hutchinson Comment: accepted the pt on his service and took over the care at 3:26AM Doctor Will See Patient In The: Hospital Counseled Patient/Family Regarding: Studies Performed, Diagnosis - Disposition Disposition: HOSPITALIZED Disposition Time: 02:31 Condition: GUARDED - POA Present On Arrival: Poor Glycemic Control - Clinical Impression Clinical Impression: Anxiety, SVT (supraventricular tachycardia) - Scribe Statement The provider has reviewed the documentation as recorded by the Scribe Domenic Lopez All medical record entries made by the Scribe were at my direction and personally dictated by me. I have reviewed the chart and agree that the record accurately reflects my personal performance of the history, physical exam, medical decision making, and the department course for this patient. I have also personally directed, reviewed, and agree with the discharge instructions and disposition. Decision To Admit - Pt Status Changed To: Hospital Disposition Of: Inpatient - Admit Certification Admit to Inpatient:: After my assessment, the patient will require hospitalization for at least two midnights. This is because of the severity of symptoms shown, intensity of services needed, and/or the medical risk in this patient being treated as an outpatient. - InPatient: Physician Admission Certification: I certify that this patient requires 2 or more midnights of care for the following reason:: After my assessment, the patient will require hospitalization for at least two midnights. This is because of the severity of symptoms shown, intensity of services needed, and/or the medical risk in this patient being treated as an outpatient. - . Bed Request Type: Telemetry Admitting Physician: Gabriele Hutchinson Patient Diagnosis: Anxiety, SVT (supraventricular tachycardia)
[2018-02-05 02:32] VITALS: BMI 32.0
[2018-02-05] MEDS ORDERED: Verapamil 2 ML ONE (03:03)
[2018-02-05 03:21] LABS: ALB/GLOB RATIO 0.9 (1.0-2.1); ALBUMIN 3.5 g/dL (3.5-5.0); ALT/SGPT 20 U/L (9-52); AST/SGOT 21 U/L (14-36); BLOOD UREA NITROGEN 25 mg/dL (7-17); CALCIUM 9.2 mg/dl (8.6-10.4); GFR AFRICAN-AMERICAN > 60; GFR NON-AFRICAN AMERICAN 53; LIPASE 45 U/L (23-300)
[2018-02-05 03:23] LABS: INR 0.9; PROTHROMBIN TIME 10.2 SECONDS (9.7-12.2)
[2018-02-05 03:33] LABS: B-TYPE NATRIURETIC PEPTIDE 4880 pg/mL (0-900)
[2018-02-05] MEDS ORDERED: Albuterol HFA 90 mcg/actuation (8 g) IH PRN ×2 (03:41→13:30)
[2018-02-05 04:10] LABS: BASO # 0.1 K/uL (0.0-0.2); BASO % 0.9 % (0.0-2.0); EOS # 0.2 K/uL (0.0-0.7); EOS % 1.3 % (0.0-4.0); HEMOGLOBIN 13.5 g/dL (11.0-16.0); LYMPH # 2.3 K/uL (1.0-4.3); LYMPH % 18.5 % (20.0-40.0); MEAN CELL VOLUME 90.4 fL (81.0-99.0); MEAN CORPUSCULAR HEMOGLOBIN 30.3 pg (27.0-31.0); MEAN CORPUSCULAR HGB CONC 33.5 g/dL (33.0-37.0); MEAN PLATELET VOLUME 9.1 fL (7.2-11.7); MONO # 1.6 K/uL (0.0-0.8); MONO % 12.9 % (0.0-10.0); NEUT # 8.4 K/uL (1.8-7.0); NEUT % 66.4 % (50.0-75.0); NRBC % 0.1 % (0.0-2.0); RBC 4.47 Mil/uL (3.80-5.20); RED CELL DISTRIBUTION WIDTH 15.3 % (11.5-14.5); WHITE BLOOD COUNT 12.6 K/uL (4.8-10.8)
[2018-02-05 08:16] LABS: CK-MB 0.96 ng/mL (0.0-3.38); TROPONIN I 0.058 ng/mL (0.00-0.120)
--- NOTE | 2018-02-05 08:29 | RAD ---
PROCEDURE: CHEST RADIOGRAPH, 1 VIEW HISTORY: chest pain COMPARISON: Comparison is made to 04/27/2017 FINDINGS: LUNGS: No evidence of new infiltrate or consolidation in the lungs. Mild pulmonary vascular congestion is noted. PLEURA: Blunting of both costophrenic angle is noted. CARDIOVASCULAR: Cardiac silhouette is prominent in size. OSSEOUS STRUCTURES: No significant abnormalities. VISUALIZED UPPER ABDOMEN: Normal. OTHER FINDINGS: None. IMPRESSION: Possible pulmonary vascular congestion.
[2018-02-05] MEDS ORDERED: NAPROXEN 375 MG PO SCH (09:00)
[2018-02-05] MEDS: Naproxen 275 mg Tab PO SCH ×2 (13:58→18:39)
[2018-02-05] MEDS: Potassium Chloride 20 mEq ER Tab PO SCH (17:39)
--- NOTE | 2018-02-05 22:39 | CP.PCM.HP ---
History of Present Illness - History of Present Illness History of Present Illness: CC: palpitations, dizziness, weakness History Of Present Illness 82 year old female with PMH of HTN, Hyperlipidemia, atrial fibrilation, anxiety , depression presents to the ED c/o palpitations, weakness, dizziness. Patient states she has had this problem for years and has been taking Cardizem for it. Patient reports she took extra Cardizem today and feels her pulse is fast. Patient denies CP, SOB, nausea, vomit, headache, weakness, numbness. Time Seen by Provider: 02/05/18 02:31 Present on Admission - Present on Admission Any Indicators Present on Admission: Yes Review of Systems - Review of Systems Systems not reviewed;Unavailable: Acuity of Condition, Unstable Vital Signs - Constitutional Constitutional: absent: As Per HPI, Anorexia, Chills, Daytime Sleepiness, Excessive Sweating, Fatigue, Fever, Frequent Falls, Headache, Increased Appetite , Lethargy, Malaise, Night Sweats, Snoring, Sleep Apnea, Weight Gain, Weight Loss, Weakness, Other - EENT Eyes: absent: As Per HPI, Blind Spots, Blurred Vision, Change in Vision, Decreased Night Vision, Diplopia, Discharge, Dry Eye, Exophthalmos, Floaters, Irritation, Itchy Eyes, Loss of Peripheral Vision, Pain, Photophobia, Requires Corrective Lenses, Sees Flashes, Spots in Vision, Tunnel Vision, Other Visual Disturbances, Loss of Vision, Other - Cardiovascular Cardiovascular: Dyspnea on Exertion, Lightheadedness, Palpitations - Respiratory Respiratory: absent: As Per HPI, Cough, Dyspnea, Hemoptysis, Dyspnea on Exertion , Wheezing, Snoring, Stridor, Pain on Inspiration, Chest Congestion, Excessive Mucous Production, Change in Mucous Color, Pain with Coughing, Other Past Patient History - Infectious Disease Hx of Infectious Diseases: None - Past Medical History & Family History Past Medical History?: Yes - Past Social History Smoking Status: Never Smoked - CARDIAC Hx Atrial Fibrillation: Yes Hx Cardia Arrhythmia: Yes Hx Hypercholesterolemia: Yes Hx Hypertension: Yes - PULMONARY Hx Chronic Obstructive Pulmonary Disease (COPD): Yes - NEUROLOGICAL Hx Neurological Disorder: No - HEENT Hx HEENT Problems: No - RENAL Hx Chronic Kidney Disease: Yes - ENDOCRINE/METABOLIC Hx Endocrine Disorders: No - HEMATOLOGICAL/ONCOLOGICAL Hx Blood Disorders: No Hx Hepatitis A: No Hx Hepatitis B: No Hx Hepatitis C: No - INTEGUMENTARY Hx Dermatological Problems: No - MUSCULOSKELETAL/RHEUMATOLOGICAL Hx Arthritis: Yes Hx Falls: No - GASTROINTESTINAL Hx Diverticulitis: Yes Hx Gastritis: Yes - GENITOURINARY/GYNECOLOGICAL Hx Genitourinary Disorders: Yes Hx Urinary Tract Infection: Yes - PSYCHIATRIC Hx Anxiety: Yes Hx Depression: Yes Hx Substance Use: No - SURGICAL HISTORY Hx Surgeries: Yes Hx Herniorrhaphy: Yes 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) - ANESTHESIA Hx Anesthesia: Yes Hx Anesthesia Reactions: No Hx Malignant Hyperthermia: No Meds Allergies/Adverse Reactions: Allergies Allergy/AdvReac Type Severity Reaction Status Date / Time Sulfa (Sulfonamide Allergy Verified 02/05/18 02:38 Antibiotics) Physical Exam - Constitutional Appears: No Acute Distress - Head Exam Head Exam: ATRAUMATIC, NORMAL INSPECTION, NORMOCEPHALIC - Eye Exam Eye Exam: EOMI, Normal appearance, PERRL Pupil Exam: NORMAL ACCOMODATION, PERRL - Respiratory Exam Respiratory Exam: Clear to Auscultation Bilateral, NORMAL BREATHING PATTERN - Cardiovascular Exam Cardiovascular Exam: Tachycardia, Irregular Rhythm, +S1, +S2 - GI/Abdominal Exam GI & Abdominal Exam: Normal Bowel Sounds, Soft. absent: Tenderness Results - Vital Signs Recent Vital Signs: Last Vital Signs Temp 97.4 F L 02/05/18 17:00 Pulse 70 02/05/18 17:00 Resp 20 02/05/18 17:00 BP 130/85 02/05/18 18:39 Pulse Ox 96 02/05/18 17:00 - Labs Result Diagrams: 02/05/18 04:06 02/05/18 03:06 Labs: Laboratory Results - last 24 hr 02/05/18 02/05/18 02/05/18 03:06 03:06 04:06 WBC 12.6 H RBC 4.47 Hgb 13.5 Hct 40.4 MCV 90.4 D MCH 30.3 MCHC 33.5 RDW 15.3 H Plt Count 231 MPV 9.1 Neut % (Auto) 66.4 Lymph % (Auto) 18.5 L [place] % (Auto) 12.9 H Eos % (Auto) 1.3 Baso % (Auto) 0.9 Neut # (Auto) 8.4 H Lymph # (Auto) 2.3 [place] # (Auto) 1.6 H Eos # (Auto) 0.2 Baso # (Auto) 0.1 PT 10.2 INR 0.9 APTT 32 Sodium 141 Potassium 4.0 Chloride 102 Carbon Dioxide 26 Anion Gap 17 BUN 25 H Creatinine 1.0 Est GFR ( Amer) > 60 Est GFR (Non-Af Amer) 53 Random Glucose 116 H Calcium 9.2 Total Bilirubin 0.7 AST 21 ALT 20 Alkaline Phosphatase 156 H Total Creatine Kinase CK-MB (Mass) Troponin I 0.0650 NT-Pro-B Natriuret Pep 4880 H Total Protein 7.2 Albumin 3.5 Globulin 3.7 Albumin/Globulin Ratio 0.9 L Lipase 45 TSH 3rd Generation 3.17 02/05/18 07:32 WBC RBC Hgb Hct MCV MCH MCHC RDW Plt Count MPV Neut % (Auto) Lymph % (Auto) [place] % (Auto) Eos % (Auto) Baso % (Auto) Neut # (Auto) Lymph # (Auto) [place] # (Auto) Eos # (Auto) Baso # (Auto) PT INR APTT Sodium Potassium Chloride Carbon Dioxide Anion Gap BUN Creatinine Est GFR ( Amer) Est GFR (Non-Af Amer) Random Glucose Calcium Total Bilirubin AST ALT Alkaline Phosphatase Total Creatine Kinase 23 L CK-MB (Mass) 0.96 Troponin I 0.0580 NT-Pro-B Natriuret Pep Total Protein Albumin Globulin Albumin/Globulin Ratio Lipase TSH 3rd Generation Assessment & Plan (1) Anxiety Status: Acute (2) A-fib Assessment and Plan: most likely acute excerberation atrial fib with rapid ventricular response improve with cardizem Status: Acute (3) Dizziness Status: Acute
[2018-02-05 22:57] LABS: SQUAMOUS EPITHIAL 3 /hpf (0-5); URINE BACTERIA OCC (<OCC); URINE BILIRUBIN NEGATIVE (NEGATIVE); URINE BLOOD 1+ (NEGATIVE); URINE CLARITY Hazy (Clear); URINE COLOR Yellow (YELLOW); URINE GLUCOSE (UA) NORMAL (Normal); URINE LEUKOCYTE ESTERASE 3+ Leu/uL (Negative); URINE PROTEIN NEGATIVE (NEGATIVE); URINE UROBILINOGEN NORMAL mg/dL (0.2-1.0)
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
[2018-02-06 07:59] VITALS: PULSE 86; RESP 18; TEMP 97.4; O2SAT 96
[2018-02-06] MEDS ORDERED: Enoxaparin 40 mg Syringe SC SCH (10:00)
[2018-02-06] MEDS: Potassium Chloride 20 mEq ER Tab PO SCH (10:06)
[2018-02-06 11:38] LABS: CK-MB 0.74 ng/mL (0.0-3.38); TROPONIN I 0.037 ng/mL (0.00-0.120)
[2018-02-06 17:58] VITALS: BP 106/82
[2018-02-06] MEDS: Naproxen 275 mg Tab PO SCH (17:58)
--- NOTE | 2018-02-06 18:36 | PN ---
DATE: SUBJECTIVE: The patient was noted to have of what seems to be supraventricular tachycardia. The patient was asymptomatic. The patient is anxious to go home. She denies any palpitations or chest pain. PHYSICAL EXAMINATION: VITAL SIGNS: Blood pressure 131/83, heart rate 86, temperature 97.4, respirations 18. HEENT: Normocephalic. CHEST: Clear. HEART: S1 and S2 regular. EXTREMITIES: Trace leg edema. LABORATORIES: Two sets of troponins are negative. Pro-BMP is 488*. TSH is within normal limits. LDL cholesterol is elevated to 122, HDL cholesterol elevated to 166. ASSESSMENT: 1. Paroxysmal reentrant supraventricular tachycardia. 2. Anxiety disorder. 3. Hyperlipidemia. 4. Hypertension. 5. Rule out systolic heart failure. RECOMMENDATIONS: Continue current Crestor at 5 mg once a day, K-Dur 20 mEq oral once a day, Lasix 20 mg intravenously once a day, Lopressor 25 mg twice a day, Lovenox at 40 mg intravenously once a day. I would review the echocardiographic study performed today. EKG revealed sinus rhythm with moderate voltage criteria for LVH and poor R-wave progression. Xavier Espinoza MD
--- NOTE | 2018-02-06 23:03 | CP.PCM.DIS ---
Provider - Provider Date of Admission: 02/05/18 03:20 Attending physician: Gabriele Hutchinson MD Time Spent in preparation of Discharge (in minutes): 45 Diagnosis - Discharge Diagnosis (1) Anxiety Status: Acute (2) A-fib Status: Acute (3) Dizziness Status: Acute (4) Supraventricular tachycardia Status: Acute Hospital Course - Lab Results Lab Results: Most Recent Lab Values WBC 12.6 K/uL (4.8-10.8) H 02/05/18 04:06 RBC 4.47 Mil/uL (3.80-5.20) 02/05/18 04:06 Hgb 13.5 g/dL (11.0-16.0) 02/05/18 04:06 Hct 40.4 % (34.0-47.0) 02/05/18 04:06 MCV 90.4 fL (81.0-99.0) D 02/05/18 04:06 MCH 30.3 pg (27.0-31.0) 02/05/18 04:06 MCHC 33.5 g/dL (33.0-37.0) 02/05/18 04:06 RDW 15.3 % (11.5-14.5) H 02/05/18 04:06 Plt Count 231 K/uL (130-400) 02/05/18 04:06 MPV 9.1 fL (7.2-11.7) 02/05/18 04:06 Neut % (Auto) 66.4 % (50.0-75.0) 02/05/18 04:06 Lymph % (Auto) 18.5 % (20.0-40.0) L 02/05/18 04:06 [place] % (Auto) 12.9 % (0.0-10.0) H 02/05/18 04:06 Eos % (Auto) 1.3 % (0.0-4.0) 02/05/18 04:06 Baso % (Auto) 0.9 % (0.0-2.0) 02/05/18 04:06 Neut # (Auto) 8.4 K/uL (1.8-7.0) H 02/05/18 04:06 Lymph # (Auto) 2.3 K/uL (1.0-4.3) 02/05/18 04:06 [place] # (Auto) 1.6 K/uL (0.0-0.8) H 02/05/18 04:06 Eos # (Auto) 0.2 K/uL (0.0-0.7) 02/05/18 04:06 Baso # (Auto) 0.1 K/uL (0.0-0.2) 02/05/18 04:06 PT 10.2 SECONDS (9.7-12.2) 02/05/18 03:06 INR 0.9 02/05/18 03:06 APTT 32 SECONDS (21-34) 02/05/18 03:06 Sodium 141 mmol/L (132-148) 02/05/18 03:06 Potassium 4.0 mmol/L (3.6-5.2) 02/05/18 03:06 Chloride 102 mmol/L (98-107) 02/05/18 03:06 Carbon Dioxide 26 mmol/L (22-30) 02/05/18 03:06 Anion Gap 17 (10-20) 02/05/18 03:06 BUN 25 mg/dL (7-17) H 02/05/18 03:06 Creatinine 1.0 mg/dL (0.7-1.2) 02/05/18 03:06 Est GFR ( Amer) > 60 02/05/18 03:06 Est GFR (Non-Af Amer) 53 02/05/18 03:06 Random Glucose 116 mg/dL (65-105) H 02/05/18 03:06 Calcium 9.2 mg/dl (8.6-10.4) 02/05/18 03:06 Total Bilirubin 0.7 mg/dL (0.2-1.3) 02/05/18 03:06 AST 21 U/L (14-36) 02/05/18 03:06 ALT 20 U/L (9-52) 02/05/18 03:06 Alkaline Phosphatase 156 U/L (38-126) H 02/05/18 03:06 Total Creatine Kinase 32 U/L (30-135) 02/06/18 11:04 CK-MB (Mass) 0.74 ng/mL (0.0-3.38) 02/06/18 11:04 Troponin I 0.0370 ng/mL (0.00-0.120) 02/06/18 11:04 NT-Pro-B Natriuret Pep 4880 pg/mL (0-900) H 02/05/18 03:06 Total Protein 7.2 g/dL (6.3-8.3) 02/05/18 03:06 Albumin 3.5 g/dL (3.5-5.0) 02/05/18 03:06 Globulin 3.7 gm/dL (2.2-3.9) 02/05/18 03:06 Albumin/Globulin Ratio 0.9 (1.0-2.1) L 02/05/18 03:06 Triglycerides 90 mg/dL (0-149) 02/06/18 11:04 Cholesterol 222 mg/dL (0-199) H 02/06/18 11:04 LDL Cholesterol Direct 156 mg/dL (0-129) H 02/06/18 11:04 HDL Cholesterol 47 mg/dL (30-70) 02/06/18 11:04 Lipase 45 U/L (23-300) 02/05/18 03:06 TSH 3rd Generation 3.17 mIU/L (0.46-4.68) 02/05/18 03:06 Urine Color Yellow (YELLOW) 02/05/18 22:47 Urine Clarity Hazy (Clear) 02/05/18 22:47 Urine pH 5.0 (5.0-8.0) 02/05/18 22:47 Ur Specific [place] 1.009 (1.003-1.030) 02/05/18 22:47 Urine Protein Negative mg/dL (NEGATIVE) 02/05/18 22:47 Urine Glucose (UA) Normal mg/dL (Normal) 02/05/18 22:47 Urine Ketones Negative mg/dL (NEGATIVE) 02/05/18 22:47 Urine Blood 1+ (NEGATIVE) H 02/05/18 22:47 Urine Nitrate Negative (NEGATIVE) 02/05/18 22:47 Urine Bilirubin Negative (NEGATIVE) 02/05/18 22:47 Urine Urobilinogen Normal mg/dL (0.2-1.0) 02/05/18 22:47 Ur Leukocyte Esterase 3+ Jorge Luis/uL (Negative) H 02/05/18 22:47 Urine WBC (Auto) 122 /hpf (0-5) H 02/05/18 22:47 Urine RBC (Auto) 10 /hpf (0-3) H 02/05/18 22:47 Ur Squamous Epith Cells 3 /hpf (0-5) 02/05/18 22:47 Urine Bacteria Occ (<OCC) H 02/05/18 22:47 - Hospital Course Hospital Course: Pt seen and evaluated, is anxious, her tacycardia has been resolved, positive UA , she wants to go home, discharge pt home on PO keflex and follow up with me in 5 days Discharge Exam - Head Exam Head Exam: ATRAUMATIC, NORMAL INSPECTION, NORMOCEPHALIC - Eye Exam Eye Exam: EOMI, Normal appearance, PERRL Pupil Exam: NORMAL ACCOMODATION, PERRL - ENT Exam ENT Exam: Mucous Membranes Moist - Respiratory Exam Respiratory Exam: Clear to PA & Lateral, NORMAL BREATHING PATTERN - Cardiovascular Exam Cardiovascular Exam: REGULAR RHYTHM, +S1, +S2 - Rectal Exam Rectal Exam: Deferred Discharge Plan - Follow Up Plan Condition: GUARDED Disposition: HOME/ ROUTINE Instructions: Supraventricular Tachycardia (SVT), Cephalexin, Anxiety (DC) Referrals: Gabriele Hutchinson MD [Staff Provider] -
--- NOTE | 2018-02-07 00:41 | CARD ---
APPROVED REPORT EXAM: Two-dimensional and M-mode echocardiogram with Doppler and color Doppler. Other Information Quality : GoodRhythm : INDICATION Dizziness and Vertigo Atrial Fibrillation Palpitations RISK FACTORS Hypertension Hyperlipidemia 2D DIMENSIONS IVSd1.1 (0.7-1.1cm)LVDd4.2 (3.9-5.9cm) PWd1.5 (0.7-1.1cm)LVDs3.0 (2.5-4.0cm) FS (%) 29.3 %LVEF (%)56.6 (>50%) M-Mode DIMENSIONS Left Atrium (MM)3.53 (2.5-4.0cm)Aortic Root3.27 (2.2-3.7cm) Aortic Cusp Exc.1.42 (1.5-2.0cm) Aortic Valve AI P 1/2 [id number] Mitral Valve MV E Ymraciko37.8cm/sMV A Wkbiixns750.7cm/sE/A ratio0.4 TDI E/Lateral E'0.0E/Medial E'0.0 Tricuspid Valve TR Peak [id number]/sTR Peak Gr.17mmHg LEFT VENTRICLE The left ventricle is normal size. There is mild concentric left ventricular hypertrophy. Left ventricle systolic function is normal. The Ejection Fraction is 55-60%. There is normal LV segmental wall motion. Transmitral Doppler flow pattern is Grade I-abnormal relaxation pattern. There is no ventricular septal defect visualized. RIGHT VENTRICLE The right ventricle is normal size. The right ventricular systolic function is normal. ATRIA The left atrium size is normal. The right atrium size is normal. AORTIC VALVE The aortic valve is mildly sclerotic. The aortic valve is tri-cuspid. There is mild aortic regurgitation. There is no aortic valvular stenosis. MITRAL VALVE The mitral valve leaflets are thickened.Cannot exclude aortic valvular vegetation. There is no evidence of mitral valve prolapse. Mitral regurgitation is trace. TRICUSPID VALVE The tricuspid valve is normal in structure. There is trace tricuspid regurgitation. Right ventricular systolic pressure is estimated at less than 30 mmHg. There is no pulmonary hypertension. PULMONIC VALVE The pulmonic valve is not well visualized. There is trace pulmonic valvular regurgitation. GREAT VESSELS The aortic root is normal in size. The ascending aorta is normal in size. The IVC is normal in size and collapses >50% with inspiration. PERICARDIAL EFFUSION There is no pericardial effusion. <Conclusion> There is mild concentric left ventricular hypertrophy. Left ventricle systolic function is normal. The Ejection Fraction is 55-60%. Transmitral Doppler flow pattern is Grade I-abnormal relaxation pattern. Mitral regurgitation is trace.
--- NOTE | 2018-02-07 02:08 | CARD ---
APPROVED REPORT EKG Measurement Heart [id number] <Conclusion> Normal sinus rhythm Moderate voltage criteria for LVH, may be normal variant Junctional ST depression, probably normal Borderline ECG
== END 2018-02-06 20:00 | disposition home or self-care (01) | DRG 309 ==
LOC: C.ER 02:24 → C.6T 03:20
PROVIDERS: ADMIT Internal Medicine; ATTEND Internal Medicine
DX: I48.91 Unspecified atrial fibrillation (principal); I13.0 Hypertensive heart and chronic kidney disease with heart failure and stage 1 through stage 4 chronic kidney disease, or unspecified chronic kidney disease; I50.20 Unspecified systolic (congestive) heart failure; E78.00 Pure hypercholesterolemia, unspecified; I47.1 Supraventricular tachycardia; F41.9 Anxiety disorder, unspecified; F32.9 Major depressive disorder, single episode, unspecified; J44.9 Chronic obstructive pulmonary disease, unspecified; N18.9 Chronic kidney disease, unspecified; Z87.440 Personal history of urinary (tract) infections

== ENCOUNTER 2018-03-28 14:40 | Emergency (ER) | payer MEDICARE ==
[2018-03-28 14:41] VITALS: BMI 32.0
[2018-03-28 14:57] VITALS: O2SAT 98
--- NOTE | 2018-03-28 15:45 | C.PDOC ---
History Of Present Illness 82 years old female presents to ED for complaints of left sided chest pain that began earlier today. Patient states pain is not currently present. Denies headache, cough, nausea, vomiting, or diarrhea. PMD: Jose Max Time Seen by Provider: 03/28/18 15:31 Chief Complaint (Nursing): Chest Pain History Per: Patient History/Exam Limitations: no limitations Onset/Duration Of Symptoms: Hrs Current Symptoms Are (Timing): Still Present Associated Symptoms: denies: Nausea Modifying Factors: None Exacerbating Factors: None Alleviating Factors: None Recent travel outside of the [place]: No Past Medical History Reviewed: Historical Data, Nursing Documentation, Vital Signs Vital Signs: Last Vital Signs Temp 97.4 F L 03/28/18 14:44 Pulse 64 03/28/18 14:44 Resp 14 03/28/18 14:44 BP 168/86 H 03/28/18 14:44 Pulse Ox 98 03/28/18 17:20 - Medical History PMH: Anxiety, Arthritis, Atrial Fibrillation, Cardia Arrhythmia, COPD, Depression, Diverticulitis, Gastritis, HTN, Hypercholesterolemia, Chronic Kidney Disease Surgical History: Hernia Repair - [facility] Procedures APPLICATION OF SPLINT (09/06/13) VACCINATION NEC (11/20/14) Family History: States: Unknown Family Hx - Social History Hx Tobacco Use: No Hx Alcohol Use: No Hx Substance Use: No - Immunization History Hx Tetanus Toxoid Vaccination: No Hx Influenza Vaccination: No Hx Pneumococcal Vaccination: No Review Of Systems Constitutional: Negative for: Fever, Chills Cardiovascular: Positive for: Chest Pain Gastrointestinal: Negative for: Nausea, Vomiting, Diarrhea Skin: Negative for: Rash Neurological: Negative for: Weakness, Numbness Physical Exam - Physical Exam Appears: Non-toxic, No Acute Distress, Other (Anxious ) Skin: Warm, Dry Head: Atraumatic, Normacephalic Eye(s): bilateral: Normal Inspection, PERRL, EOMI Nose: Normal Oral Mucosa: Moist Neck: Supple Chest: Symmetrical, No Tenderness Cardiovascular: Rhythm Regular, No Murmur Respiratory: Normal Breath Sounds, No Decreased Breath Sounds, No Rales, No Rhonchi, No Wheezing Gastrointestinal/Abdominal: Hernia (LUQ hidden ) Extremity: Normal ROM, No Pedal Edema, No Deformity Extremity: Bilateral: Atraumatic, Normal Color And Temperature, Normal ROM Neurological/Psych: Oriented x3, Normal Speech Gait: Steady ED Course And Treatment - Laboratory Results Result Diagrams: 03/28/18 16:23 03/28/18 16:23 O2 Sat by Pulse Oximetry: 98 (RA) Pulse Ox Interpretation: Normal - Other Rad CXR X-Ray: Viewed By Me, Read By Radiologist Interpretation: PROCEDURE: CHEST RADIOGRAPH, 1 VIEW. HISTORY: chest pain. COMPARISON: 02/05/2018. FINDINGS: LUNGS: No consolidation. PLEURA: No pneumothorax or pleural fluid seen. CARDIOVASCULAR: Probable minimal cardiomegaly. Mild pulmonary venous congestion -similar to slightly decreased. OSSEOUS STRUCTURES: Thoracic spondylosis. VISUALIZED UPPER ABDOMEN: Normal. OTHER FINDINGS: None. IMPRESSION: Cardiomegaly and mild pulmonary venous congestion -the latter probably slightly decreased Medical Decision Making Medical Decision Making: Administered Aspirin. Ordered EKG, blood work, and CXR. EKG: - Normal sinus rhythm at 67bpm - LAD 5:14PM: Advised patient that it would be better to stay under observation. But patient states she prefers to leave. Disposition - Disposition Disposition: HOME/ ROUTINE Disposition Time: 17:22 Condition: GOOD Additional Instructions: Follow up with your pcp in a few days and continue your medication as scheduled. Forms: [employer] (Urdu) - Clinical Impression Clinical Impression: Chest pain, Anxiety - Scribe Statement The provider has reviewed the documentation as recorded by the Allison Haywood All medical record entries made by the Madihaibfestus were at my direction and personally dictated by me. I have reviewed the chart and agree that the record accurately reflects my personal performance of the history, physical exam, medical decision making, and the department course for this patient. I have also personally directed, reviewed, and agree with the discharge instructions and disposition.
[2018-03-28] MEDS ORDERED: Aspirin 325 mg EC Tablets PO STA (15:47)
[2018-03-28 16:27] LABS: BASO # 0.1 K/uL (0.0-0.2); BASO % 1.1 % (0.0-2.0); EOS # 0.4 K/uL (0.0-0.7); EOS % 5.1 % (0.0-4.0); HEMOGLOBIN 13.5 g/dL (11.0-16.0); LYMPH # 2.3 K/uL (1.0-4.3); LYMPH % 27.4 % (20.0-40.0); MEAN CELL VOLUME 93.1 fL (81.0-99.0); MEAN CORPUSCULAR HEMOGLOBIN 31.7 pg (27.0-31.0); MEAN CORPUSCULAR HGB CONC 34.1 g/dL (33.0-37.0); MEAN PLATELET VOLUME 8.6 fL (7.2-11.7); MONO # 1.1 K/uL (0.0-0.8); MONO % 12.7 % (0.0-10.0); NEUT # 4.5 K/uL (1.8-7.0); NEUT % 53.7 % (50.0-75.0); NRBC % 0.1 % (0.0-2.0); RBC 4.24 Mil/uL (3.80-5.20); RED CELL DISTRIBUTION WIDTH 15.6 % (11.5-14.5); WHITE BLOOD COUNT 8.4 K/uL (4.8-10.8)
[2018-03-28 16:56] LABS: ALB/GLOB RATIO 0.9 (1.0-2.1); ALBUMIN 3.1 g/dL (3.5-5.0); ALT/SGPT 45 U/L (9-52); AST/SGOT 32 U/L (14-36); BLOOD UREA NITROGEN 21 mg/dL (7-17); GFR AFRICAN-AMERICAN > 60; GFR NON-AFRICAN AMERICAN > 60
--- NOTE | 2018-03-28 16:59 | RAD ---
PROCEDURE: CHEST RADIOGRAPH, 1 VIEW HISTORY: chest pain COMPARISON: 02/05/2018 FINDINGS: LUNGS: No consolidation. PLEURA: No pneumothorax or pleural fluid seen. CARDIOVASCULAR: Probable minimal cardiomegaly. Mild pulmonary venous congestion -similar to slightly decreased OSSEOUS STRUCTURES: Thoracic spondylosis. VISUALIZED UPPER ABDOMEN: Normal. OTHER FINDINGS: None. IMPRESSION: Cardiomegaly and mild pulmonary venous congestion -the latter probably slightly decreased
[2018-03-28 17:52] VITALS: BP 162/78; RESP 18; TEMP 97.8
[2018-03-28 18:22] VITALS: PULSE 70
== END 2018-03-28 18:23 | disposition home or self-care (01) ==
LOC: C.ER 14:40
DX: F41.9 Anxiety disorder, unspecified (principal); R07.9 Chest pain, unspecified; E78.00 Pure hypercholesterolemia, unspecified; I48.91 Unspecified atrial fibrillation; I12.9 Hypertensive chronic kidney disease with stage 1 through stage 4 chronic kidney disease, or unspecified chronic kidney disease; N18.9 Chronic kidney disease, unspecified; J44.9 Chronic obstructive pulmonary disease, unspecified

== ENCOUNTER 2018-04-24 05:33 | Emergency (ER) | payer MEDICARE ==
[2018-04-24 05:34] VITALS: BMI 32.0
--- NOTE | 2018-04-24 06:02 | C.PDOC ---
History Of Present Illness 82 year old PMHx of arthritis presents to the ED c/o neck, arm pain. Patient states her arthritis is acting up again and is not able to sleep at night because everything hurts. Patient reports she has been taking Tylenol and Aleve with no relief. Patient denies new injury, fall, trauma, fever, chills, CP, SOB , weakness, numbness. Time Seen by Provider: 04/24/18 06:01 Chief Complaint (Nursing): Upper Extremity Problem/Injury History Per: Patient History/Exam Limitations: no limitations Onset/Duration Of Symptoms: Days Current Symptoms Are (Timing): Still Present Quality: "Pain" Exacerbating Factor(s): Movement, Worse At Night Recent travel outside of the [place]: No Additional History Per: Patient Past Medical History Reviewed: Historical Data, Nursing Documentation, Vital Signs Vital Signs: Last Vital Signs Temp 97.5 F L 04/24/18 05:45 Pulse 75 04/24/18 05:45 Resp 16 04/24/18 05:45 BP 165/90 H 04/24/18 05:45 Pulse Ox 97 04/24/18 06:24 - Medical History PMH: Anxiety, Arthritis, Atrial Fibrillation, Cardia Arrhythmia, COPD, Depression, Diverticulitis, Gastritis, HTN, Hypercholesterolemia, Chronic Kidney Disease Surgical History: Hernia Repair - [facility] Procedures APPLICATION OF SPLINT (09/06/13) VACCINATION NEC (11/20/14) Family History: States: Unknown Family Hx - Social History Hx Tobacco Use: No Hx Alcohol Use: No Hx Substance Use: No - Immunization History Hx Tetanus Toxoid Vaccination: No Hx Influenza Vaccination: No Hx Pneumococcal Vaccination: No Review Of Systems Constitutional: Negative for: Fever, Chills Cardiovascular: Negative for: Chest Pain Respiratory: Negative for: Shortness of Breath Gastrointestinal: Negative for: Nausea, Vomiting Musculoskeletal: Positive for: Neck Pain, Arm Pain, Hand Pain Skin: Negative for: Rash Neurological: Negative for: Weakness, Numbness, Headache Physical Exam - Physical Exam Appears: Non-toxic Skin: Warm, Dry Head: Normacephalic Eye(s): bilateral: Normal Inspection Oral Mucosa: Moist Neck: Supple, Other (neck discomfort) Chest: Symmetrical Cardiovascular: Rhythm Regular Respiratory: No Rales, No Rhonchi, No Wheezing Gastrointestinal/Abdominal: Soft, No Tenderness, No Guarding, No Rebound Extremity: Tenderness (shoulders, arms), Capillary Refill (< 2 seconds), No Swelling Extremity: Right: Other (hand flexed when passive movement done causes severe pain, patient refused to open her hand), Bilateral: Atraumatic, Normal Color And Temperature Pulses: Left Radial: Normal, Right Radial: Normal Neurological/Psych: Oriented x3, Normal Speech, Normal Motor, Normal Sensation Gait: Steady ED Course And Treatment - Laboratory Results Result Diagrams: 04/24/18 06:35 O2 Sat by Pulse Oximetry: 97 (ON RA) Pulse Ox Interpretation: Normal Progress Note: Plan: - Labs Disposition Counseled Patient/Family Regarding: Studies Performed, Diagnosis - Disposition Disposition Time: 06:01 Condition: FAIR Forms: [facility] (Polish) - Clinical Impression Clinical Impression: Osteoarthritis, Shoulder pain, Arm pain, Hand pain, right - Scribe Statement The provider has reviewed the documentation as recorded by the Scribe Domenic Lopez All medical record entries made by the Scribe were at my direction and personally dictated by me. I have reviewed the chart and agree that the record accurately reflects my personal performance of the history, physical exam, medical decision making, and the department course for this patient. I have also personally directed, reviewed, and agree with the discharge instructions and disposition. Physician Patient Turnover Patient Signed Over To: Alcon Medina Handoff Comments: pending labs, re-eval and disposition
[2018-04-24 06:38] LABS: BASO # 0.1 K/uL (0.0-0.2); BASO % 1.2 % (0.0-2.0); EOS # 0.3 K/uL (0.0-0.7); HEMOGLOBIN 12.6 g/dL (11.0-16.0); LYMPH # 2.1 K/uL (1.0-4.3); LYMPH % 17.9 % (20.0-40.0); MEAN CELL VOLUME 92.3 fL (81.0-99.0); MEAN CORPUSCULAR HEMOGLOBIN 31.9 pg (27.0-31.0); MEAN CORPUSCULAR HGB CONC 34.5 g/dL (33.0-37.0); MEAN PLATELET VOLUME 8.5 fL (7.2-11.7); MONO # 1.7 K/uL (0.0-0.8); MONO % 14.9 % (0.0-10.0); NEUT # 7.3 K/uL (1.8-7.0); NRBC % 0.1 % (0.0-2.0); RBC 3.96 Mil/uL (3.80-5.20); RED CELL DISTRIBUTION WIDTH 15.4 % (11.5-14.5); WHITE BLOOD COUNT 11.6 K/uL (4.8-10.8)
[2018-04-24 06:58] LABS: ALB/GLOB RATIO 0.9 (1.0-2.1); ALBUMIN 3.2 g/dL (3.5-5.0); ALT/SGPT 42 U/L (9-52); AST/SGOT 50 U/L (14-36); BLOOD UREA NITROGEN 25 mg/dL (7-17); GFR AFRICAN-AMERICAN > 60; GFR NON-AFRICAN AMERICAN > 60
[2018-04-24 07:53] LABS: INR 1.1; PROTHROMBIN TIME 11.8 SECONDS (9.7-12.2)
[2018-04-24 10:12] VITALS: BP 137/64; PULSE 75; RESP 18; TEMP 98.1; O2SAT 96
== END 2018-04-24 10:12 | disposition home or self-care (01) ==
LOC: C.ER 05:33
DX: M79.641 Pain in right hand (principal); M19.019 Primary osteoarthritis, unspecified shoulder; M25.519 Pain in unspecified shoulder; E78.00 Pure hypercholesterolemia, unspecified; I48.91 Unspecified atrial fibrillation; I12.9 Hypertensive chronic kidney disease with stage 1 through stage 4 chronic kidney disease, or unspecified chronic kidney disease; N18.9 Chronic kidney disease, unspecified
CPT/HCPCS: 80053; 83735; 85025; 85610; 85730; 96374; 99284; J1885

== ENCOUNTER 2018-05-07 10:55 | Emergency (ER) | payer MEDICARE ==
[2018-05-07 10:55] VITALS: BMI 32.0
[2018-05-07 11:18] VITALS: RESP 20
--- NOTE | 2018-05-07 12:05 | RAD ---
Chest x-ray single frontal view History: Shortness of breath. Comparison: 03/28/2018 Findings: Biapical pleural thickening with upper lobe granulomatous changes. Diffuse increased interstitial lung markings which may represent underlying edema and or interstitial infiltrate. Patchy consolidative changes at the left lung base with a suggestion of a trace left pleural effusion. Tortuous ectatic aorta with calcification at the aortic knob. Mild cardiomegaly. Degenerative changes in the spine. Deformity of the left proximal humerus. Clinical correlation. Impression: Biapical pleural thickening with upper lobe granulomatous changes. Diffuse increased interstitial lung markings which may represent underlying edema and or interstitial infiltrate. Patchy consolidative changes at the left lung base with a suggestion of a trace left pleural effusion. Tortuous ectatic aorta with calcification at the aortic knob. Mild cardiomegaly. Degenerative changes in the spine. Deformity of the left proximal humerus. Clinical correlation.
[2018-05-07 12:21] LABS: SQUAMOUS EPITHIAL < 1 /hpf (0-5); URINE BACTERIA OCC (<OCC); URINE BILIRUBIN NEGATIVE (NEGATIVE); URINE BLOOD NEGATIVE (NEGATIVE); URINE CLARITY Hazy (Clear); URINE COLOR Yellow (YELLOW); URINE GLUCOSE (UA) NORMAL (Normal); URINE LEUKOCYTE ESTERASE 3+ Leu/uL (Negative); URINE PROTEIN NEGATIVE (NEGATIVE)
[2018-05-07 12:39] LABS: BASO # 0.1 K/uL (0.0-0.2); BASO % 1.1 % (0.0-2.0); EOS # 0.5 K/uL (0.0-0.7); EOS % 5.5 % (0.0-4.0); HEMOGLOBIN 12.8 g/dL (11.0-16.0); LYMPH # 1.8 K/uL (1.0-4.3); LYMPH % 18.6 % (20.0-40.0); MEAN CELL VOLUME 92.8 fL (81.0-99.0); MEAN CORPUSCULAR HEMOGLOBIN 31.5 pg (27.0-31.0); MEAN CORPUSCULAR HGB CONC 33.9 g/dL (33.0-37.0); MEAN PLATELET VOLUME 9.2 fL (7.2-11.7); MONO # 1.2 K/uL (0.0-0.8); MONO % 12.6 % (0.0-10.0); NEUT # 5.9 K/uL (1.8-7.0); NEUT % 62.2 % (50.0-75.0); RBC 4.05 Mil/uL (3.80-5.20); WHITE BLOOD COUNT 9.5 K/uL (4.8-10.8)
[2018-05-07 13:04] LABS: ALBUMIN 3.3 g/dL (3.5-5.0); ALT/SGPT 30 U/L (9-52); AST/SGOT 24 U/L (14-36); BLOOD UREA NITROGEN 24 mg/dL (7-17); CALCIUM 9.3 mg/dl (8.6-10.4); GFR AFRICAN-AMERICAN > 60; GFR NON-AFRICAN AMERICAN > 60
[2018-05-07 13:34] VITALS: BP 159/78; PULSE 68; TEMP 97.7; O2SAT 97
--- NOTE | 2018-05-07 14:36 | C.PDOC ---
History Of Present Illness 82 y/o female c/o right groin pain and right leg pain since this morning. pt reports decreased ROM. Denies fall, trauma, nausea, or vomiting. Notes that her symptoms feel like prior UTI. Denies fever, dysuria, or any other associated symptoms. Chief Complaint (Nursing): Lower Extremity Problem/Injury History Per: Patient History/Exam Limitations: no limitations Past Medical History Reviewed: Historical Data, Nursing Documentation, Vital Signs Vital Signs: Last Vital Signs Temp 97.7 F 05/07/18 13:33 Pulse 68 05/07/18 13:33 Resp 20 05/07/18 13:33 BP 159/78 H 05/07/18 13:33 Pulse Ox 97 05/07/18 14:42 - Medical History PMH: Anxiety, Arthritis, Atrial Fibrillation, Cardia Arrhythmia, COPD, Depression, Diverticulitis, Gastritis, HTN, Hypercholesterolemia, Chronic Kidney Disease Surgical History: Hernia Repair - [facility] Procedures APPLICATION OF SPLINT (09/06/13) VACCINATION NEC (11/20/14) Family History: States: Unknown Family Hx - Social History Hx Tobacco Use: No Hx Alcohol Use: No Hx Substance Use: No - Immunization History Hx Tetanus Toxoid Vaccination: No Hx Influenza Vaccination: No Hx Pneumococcal Vaccination: No Review Of Systems Except As Marked, All Systems Reviewed And Found Negative. Constitutional: Negative for: Fever, Chills Gastrointestinal: Negative for: Nausea, Vomiting, Abdominal Pain Genitourinary: Positive for: Pelvic Pain (right groin). Negative for: Dysuria, Frequency Musculoskeletal: Positive for: Leg Pain (right) Physical Exam - Physical Exam Appears: Non-toxic, No Acute Distress Skin: Normal Color, Warm, Dry Head: Atraumatic, Normacephalic Eye(s): bilateral: Normal Inspection Oral Mucosa: Moist Neck: Supple Cardiovascular: Rhythm Regular Respiratory: Normal Breath Sounds, No Rales, No Rhonchi, No Wheezing Gastrointestinal/Abdominal: Soft, No Tenderness Extremity: Normal ROM, No Tenderness, No Deformity Neurological/Psych: Oriented x3, Normal Speech ED Course And Treatment - Laboratory Results Result Diagrams: 05/07/18 12:29 05/07/18 12:29 O2 Sat by Pulse Oximetry: 97 Pulse Ox Interpretation: Normal Medical Decision Making Medical Decision Making: Plan: Blood work Urinalysis Head CT CXR Toradol, Xanax Pt refused CT scan Spoke with Dr. Hutchinson who advised to treat with PO antibiotics and have pt follow up in office. Disposition - Disposition Referrals: Gabriele Hutchinson MD [Staff Provider] - Disposition: HOME/ ROUTINE Disposition Time: 13:00 Condition: IMPROVED Additional Instructions: CARMELINA GUTIERREZ, thank you for letting us take care of you today. The emergency medical care you received today was directed at your acute symptoms. If you were prescribed any medication, please fill it and take as directed. It may take several days for your symptoms to resolve. Return to the Emergency Department if your symptoms worsen, do not improve, or if you have any other problems. Please contact your doctor or call one of the physicians/clinics you have been referred to that are listed on the Patient Visit Information form that is included in your discharge packet. Bring any paperwork you were given at discharge with you along with any medications you are taking to your follow up visit. Our treatment cannot replace ongoing medical care by a primary care provider outside of the emergency department. Thank you for allowing the [facility] team to be part of your care today. You had a urine culture: It will take several days for the results, if any change in treatment is needed we will contact you. Follow up with Dr. Hutchinson in 2-3 days for re-evaluation and further management. Prescriptions: Ciprofloxacin [Cipro] 500 mg PO BID #20 tab Ibuprofen [Motrin] 600 mg PO Q6 PRN #20 tab PRN Reason: Pain, Moderate (4-7) Instructions: Urinary Tract Infection, Adult (DC) Forms: [employer] (Divehi) - Clinical Impression Clinical Impression: UTI (urinary tract infection) - Scribe Statement The provider has reviewed the documentation as recorded by the Scribe KP All medical record entries made by the Scribe were at my direction and personally dictated by me. I have reviewed the chart and agree that the record accurately reflects my personal performance of the history, physical exam, medical decision making, and the department course for this patient. I have also personally directed, reviewed, and agree with the discharge instructions and disposition.
--- NOTE | 2018-05-07 16:13 | RAD ---
Pelvis right hip two views History: Pain. Comparison: None available. Findings: Right hip: Moderate degenerative changes of the right hip joint space with subchondral sclerosis and mild osteophytosis. No evidence of acute displaced fracture dislocation of the right hip. Left hip: Moderate degenerative changes with joint space narrowing and subchondral sclerosis. Productive change at the left greater trochanter with subtle lucency. This is nonspecific however osseous injury at this level cannot entirely be excluded. If there is persistent pain at this level, consider correlation with MRI to exclude underlying osseous injury. Degenerative changes in the lower lumbar spine. Fecal retention in the rectum. Impression: Productive change at the left greater trochanter with subtle lucency. This is nonspecific however osseous injury at this level cannot entirely be excluded. If there is persistent pain at this level, consider correlation with MRI to exclude underlying osseous injury. Degenerative changes of the right hip. If pain persists, consider MRI.
== END 2018-05-07 14:06 | disposition home or self-care (01) ==
LOC: C.ER 10:55
DX: N39.0 Urinary tract infection, site not specified (principal); I48.91 Unspecified atrial fibrillation; E78.00 Pure hypercholesterolemia, unspecified; I12.9 Hypertensive chronic kidney disease with stage 1 through stage 4 chronic kidney disease, or unspecified chronic kidney disease; N18.9 Chronic kidney disease, unspecified; J44.9 Chronic obstructive pulmonary disease, unspecified
CPT/HCPCS: 71045; 73502; 80053; 81001; 85025; 87086; 96374; 99285; J1885

== ENCOUNTER 2018-05-23 14:15 | Inpatient (IN) | payer MEDICARE ==
[2018-05-23 14:45] VITALS: BMI 32.9
[2018-05-23 15:02] LABS: BASO # 0.1 K/uL (0.0-0.2); BASO % 1.3 % (0.0-2.0); EOS # 0.4 K/uL (0.0-0.7); EOS % 4.8 % (0.0-4.0); HEMOGLOBIN 12.3 g/dL (11.0-16.0); LYMPH % 22.4 % (20.0-40.0); MEAN CELL VOLUME 91.9 fL (81.0-99.0); MEAN CORPUSCULAR HGB CONC 33.8 g/dL (33.0-37.0); MONO # 1.2 K/uL (0.0-0.8); MONO % 13.1 % (0.0-10.0); NEUT # 5.2 K/uL (1.8-7.0); NEUT % 58.4 % (50.0-75.0); NRBC % 0.1 % (0.0-2.0); RBC 3.95 Mil/uL (3.80-5.20); RED CELL DISTRIBUTION WIDTH 14.9 % (11.5-14.5); WHITE BLOOD COUNT 8.9 K/uL (4.8-10.8)
[2018-05-23 15:17] LABS: SQUAMOUS EPITHIAL 14 /hpf (0-5); URINE BACTERIA RARE (<OCC); URINE BILIRUBIN NEGATIVE (NEGATIVE); URINE BLOOD NEGATIVE (NEGATIVE); URINE CLARITY Hazy (Clear); URINE COLOR Yellow (YELLOW); URINE GLUCOSE (UA) NORMAL (Normal); URINE LEUKOCYTE ESTERASE TRACE Leu/uL (Negative); URINE PROTEIN NEGATIVE (NEGATIVE); URINE UROBILINOGEN NORMAL mg/dL (0.2-1.0)
[2018-05-23 15:28] LABS: B-TYPE NATRIURETIC PEPTIDE 3320 pg/mL (0-900)
[2018-05-23 15:29] LABS: BARBITURATES, UR NEGATIVE (NEGATIVE); OPIATES, UR NEGATIVE (NEGATIVE); PHENCYCLIDINE, UR NEGATIVE (NEGATIVE)
[2018-05-23 15:30] LABS: ALBUMIN 3.4 g/dL (3.5-5.0); ALT/SGPT 19 U/L (9-52); AST/SGOT 15 U/L (14-36); BLOOD UREA NITROGEN 63 mg/dL (7-17); CALCIUM 9.6 mg/dl (8.6-10.4); GFR AFRICAN-AMERICAN 14; GFR NON-AFRICAN AMERICAN 11
--- NOTE | 2018-05-23 15:30 | C.PDOC ---
History Of Present Illness 82yo female, brought to ER by EMS as patient has been increasingly weak and noted to be decompensating at home. Patient at present is also complaining of depression. She denies any chest pain, shortness of breath, nausea, vomiting, and abdominal pain. Time Seen by Provider: 05/23/18 14:22 Chief Complaint (Nursing): Medical Clearance History Per: Patient, EMS, Family History/Exam Limitations: no limitations Past Medical History Reviewed: Historical Data, Nursing Documentation, Vital Signs Vital Signs: Last Vital Signs Temp 98.9 F 05/23/18 21:34 Pulse 71 05/23/18 21:34 Resp 18 05/23/18 21:34 BP 165/68 H 05/23/18 21:34 Pulse Ox 98 05/23/18 21:55 - Medical History PMH: Anxiety, Arthritis, Atrial Fibrillation, Cardia Arrhythmia, COPD, Depression, Diverticulitis, Gastritis, HTN, Hypercholesterolemia, Chronic Kidney Disease Surgical History: Hernia Repair - [facility] Procedures APPLICATION OF SPLINT (09/06/13) VACCINATION NEC (11/20/14) Family History: States: Unknown Family Hx - Social History Hx Tobacco Use: No Hx Alcohol Use: No Hx Substance Use: No - Immunization History Hx Tetanus Toxoid Vaccination: No Hx Influenza Vaccination: Yes Hx Pneumococcal Vaccination: No Review Of Systems Except As Marked, All Systems Reviewed And Found Negative. Constitutional: Positive for: Weakness. Negative for: Fever, Chills Cardiovascular: Negative for: Chest Pain Respiratory: Negative for: Shortness of Breath Gastrointestinal: Negative for: Abdominal Pain Psych: Positive for: Depression Physical Exam - Physical Exam Appears: Non-toxic Skin: Normal Color, Warm Head: Normacephalic Eye(s): bilateral: Normal Inspection Oral Mucosa: Moist Neck: Normal ROM, Supple Chest: Symmetrical Cardiovascular: Rhythm Regular Respiratory: Normal Breath Sounds Gastrointestinal/Abdominal: Normal Exam, Soft, No Tenderness Back: Normal Inspection Extremity: Normal ROM, No Pedal Edema Neurological/Psych: Oriented x3 ED Course And Treatment - Laboratory Results Result Diagrams: 05/23/18 14:57 05/23/18 14:57 ECG: Interpreted By Me, Viewed By Me ECG Rhythm: Sinus Rhythm Interpretation Of ECG: LVH, no ST/T wave abnormalities Rate From EC (BPM) O2 Sat by Pulse Oximetry: 98 (RA) Pulse Ox Interpretation: Normal Medical Decision Making Medical Decision Making: Assessment: Weakness, depression Plan: -- Labs -- CXR -- Lasix 20mg [address] Jose Hutchinson and will admit to medical floor for weakness and acute kidney injury Disposition Discussed With .: Gabriele Hutchinson Doctor Will See Patient In The: Hospital Counseled Patient/Family Regarding: Studies Performed, Diagnosis - Disposition Disposition: HOSPITALIZED Disposition Time: 15:30 Condition: FAIR - Clinical Impression Clinical Impression: Weakness, Acute kidney injury - Scribe Statement The provider has reviewed the documentation as recorded by the Allison Cox Provider Attestation: All medical record entries made by the Allison were at my direction and personally dictated by me. I have reviewed the chart and agree that the record accurately reflects my personal performance of the history, physical exam, medical decision making, and the department course for this patient. I have also personally directed, reviewed, and agree with the discharge instructions and disposition.
[2018-05-23 15:46] LABS: BENZODIAZEPINES, UR POSITIVE (NEGATIVE)
--- NOTE | 2018-05-23 23:50 | CP.PCM.HP ---
History of Present Illness - History of Present Illness History of Present Illness: 82yo female, brought to ER by EMS as patient has been increasingly weak and noted to be decompensating at home. Patient at present is also complaining of depression. She denies any chest pain, shortness of breath, nausea, vomiting, and abdominal pain. Past Patient History - Infectious Disease Hx of Infectious Diseases: None - Past Medical History & Family History Past Medical History?: Yes - Past Social History Smoking Status: Never Smoked - CARDIAC Hx Atrial Fibrillation: Yes Hx Cardia Arrhythmia: Yes Hx Hypercholesterolemia: Yes Hx Hypertension: Yes - PULMONARY Hx Chronic Obstructive Pulmonary Disease (COPD): Yes - NEUROLOGICAL Hx Neurological Disorder: No - HEENT Hx HEENT Problems: No - RENAL Hx Chronic Kidney Disease: Yes - ENDOCRINE/METABOLIC Hx Endocrine Disorders: No - HEMATOLOGICAL/ONCOLOGICAL Hx Blood Disorders: No Hx Hepatitis A: No Hx Hepatitis B: No Hx Hepatitis C: No - INTEGUMENTARY Hx Dermatological Problems: No - MUSCULOSKELETAL/RHEUMATOLOGICAL Hx Arthritis: Yes - GASTROINTESTINAL Hx Diverticulitis: Yes Hx Gastritis: Yes - GENITOURINARY/GYNECOLOGICAL Hx Genitourinary Disorders: Yes Hx Urinary Tract Infection: Yes - PSYCHIATRIC Hx Anxiety: Yes Hx Depression: Yes Hx Substance Use: No - SURGICAL HISTORY Hx Surgeries: Yes Hx Herniorrhaphy: Yes Hx Splenectomy: Yes - ANESTHESIA Hx Anesthesia: Yes Hx Anesthesia Reactions: No Hx Malignant Hyperthermia: No Meds Allergies/Adverse Reactions: Allergies Allergy/AdvReac Type Severity Reaction Status Date / Time Sulfa (Sulfonamide Allergy Verified 05/07/18 11:18 Antibiotics) Results - Vital Signs Recent Vital Signs: Last Vital Signs Temp 98.9 F 05/23/18 21:34 Pulse 71 05/23/18 21:34 Resp 18 05/23/18 21:34 BP 165/68 H 05/23/18 21:34 Pulse Ox 98 05/23/18 23:10 - Labs Result Diagrams: 05/23/18 14:57 05/23/18 14:57 Labs: Laboratory Results - last 24 hr 05/23/18 05/23/18 05/23/18 14:23 14:57 14:57 WBC 8.9 RBC 3.95 Hgb 12.3 Hct 36.3 MCV 91.9 MCH 31.0 MCHC 33.8 RDW 14.9 H Plt Count 426 H MPV 9.0 Neut % (Auto) 58.4 Lymph % (Auto) 22.4 [place] % (Auto) 13.1 H Eos % (Auto) 4.8 H Baso % (Auto) 1.3 Neut # (Auto) 5.2 Lymph # (Auto) 2.0 [place] # (Auto) 1.2 H Eos # (Auto) 0.4 Baso # (Auto) 0.1 Sodium 145 Potassium 3.9 Chloride 108 H Carbon Dioxide 20 L Anion Gap 21 H BUN 63 H Creatinine 3.8 H Est GFR ( Amer) 14 Est GFR (Non-Af Amer) 11 POC Glucose (mg/dL) 125 H Random Glucose 111 H Calcium 9.6 Total Bilirubin 0.6 AST 15 ALT 19 Alkaline Phosphatase 161 H Troponin I 0.0150 NT-Pro-B Natriuret Pep 3320 H Total Protein 6.9 Albumin 3.4 L Globulin 3.5 Albumin/Globulin Ratio 1.0 TSH 3rd Generation 3.96 Urine Color Urine Clarity Urine pH Ur Specific [place] Urine Protein Urine Glucose (UA) Urine Ketones Urine Blood Urine Nitrate Urine Bilirubin Urine Urobilinogen Ur Leukocyte Esterase Urine WBC (Auto) Urine RBC (Auto) Ur Squamous Epith Cells Urine Bacteria Urine Opiates Screen Urine Methadone Screen Ur Barbiturates Screen Ur Phencyclidine Scrn Ur Amphetamines Screen U Benzodiazepines Scrn U Oth Cocaine Metabols U Cannabinoids Screen Alcohol, Quantitative < 10 05/23/18 05/23/18 15:07 15:07 WBC RBC Hgb Hct MCV MCH MCHC RDW Plt Count MPV Neut % (Auto) Lymph % (Auto) [place] % (Auto) Eos % (Auto) Baso % (Auto) Neut # (Auto) Lymph # (Auto) [place] # (Auto) Eos # (Auto) Baso # (Auto) Sodium Potassium Chloride Carbon Dioxide Anion Gap BUN Creatinine Est GFR ( Amer) Est GFR (Non-Af Amer) POC Glucose (mg/dL) Random Glucose Calcium Total Bilirubin AST ALT Alkaline Phosphatase Troponin I NT-Pro-B Natriuret Pep Total Protein Albumin Globulin Albumin/Globulin Ratio TSH 3rd Generation Urine Color Yellow Urine Clarity Hazy Urine pH 6.0 Ur Specific [place] 1.009 Urine Protein Negative Urine Glucose (UA) Normal Urine Ketones Negative Urine Blood Negative Urine Nitrate Negative Urine Bilirubin Negative Urine Urobilinogen Normal Ur Leukocyte Esterase Trace Urine WBC (Auto) 4 Urine RBC (Auto) 1 Ur Squamous Epith Cells 14 H Urine Bacteria Rare Urine Opiates Screen Negative Urine Methadone Screen Negative Ur Barbiturates Screen Negative Ur Phencyclidine Scrn Negative Ur Amphetamines Screen Negative U Benzodiazepines Scrn Positive U Oth Cocaine Metabols Negative U Cannabinoids Screen Negative Alcohol, Quantitative
[2018-05-23] MEDS: Sodium Chloride 0.9% 1,000 ML IV SCH (23:57)
[2018-05-24 01:11] VITALS: RESP 20
--- NOTE | 2018-05-24 07:33 | RAD ---
Date of service: 05/23/2018 PROCEDURE: CHEST RADIOGRAPH, 1 VIEW HISTORY: SOB COMPARISON: Comparison is made with 05/07/2018 FINDINGS: LUNGS: Mild pulmonary vascular congestion. PLEURA: No pneumothorax or pleural fluid seen. CARDIOVASCULAR: The cardiac silhouette is mildly enlarged in this portable exam. Normal. OSSEOUS STRUCTURES: No significant abnormalities. VISUALIZED UPPER ABDOMEN: Normal. OTHER FINDINGS: None. IMPRESSION: Suspicious for mild cardiomegaly and pulmonary vascular congestion. No evidence of significant pleural effusion.
[2018-05-24 08:40] LABS: SQUAMOUS EPITHIAL < 1 /hpf (0-5); URINE BILIRUBIN NEGATIVE (NEGATIVE); URINE BLOOD NEGATIVE (NEGATIVE); URINE CLARITY Clear (Clear); URINE COLOR Straw (YELLOW); URINE GLUCOSE (UA) NORMAL (Normal); URINE LEUKOCYTE ESTERASE NEG Leu/uL (Negative); URINE PROTEIN NEGATIVE (NEGATIVE); URINE UROBILINOGEN NORMAL mg/dL (0.2-1.0)
[2018-05-24] MEDS: Sodium Chloride 0.9% 1,000 ML IV SCH ×2 (09:45→20:14)
[2018-05-24] MEDS: cefTRIAXone IV 1 gm in Dextros 50 ML IVPB SCH (10:00)
[2018-05-24 15:13] LABS: CREATININE, RANDOM URINE 23.1 mg/dL
--- NOTE | 2018-05-24 15:17 | US ---
Date of service: 05/24/2018 PROCEDURE: Ultrasound of the Kidneys HISTORY: MARELY/ PLEASE ASSESS FOR PVR COMPARISON: None available. TECHNIQUE: Sonogram of the kidneys. FINDINGS: RIGHT KIDNEY: Measures: 11.8 cm. Normal in size, contour and echogenicity. No calculus or hydronephrosis. Three cortical cysts. Lower pole, 4.6 x 4.4 x 4.5 cm. Mid renal 2.6 x 2.0 x 1.9 cm. Mid renal 2.2 x 2.1 x 2.2 cm. No solid mass. LEFT KIDNEY: Measures: 11.4 cm. Normal in size, contour and echogenicity. No stone, solid mass lesion or hydronephrosis visualized. OTHER FINDINGS: Distended urinary bladder volume 301 cc. Patient unable to void for postvoid residual determination. Bladder wall smooth. No intraluminal mass. Right and left ureteral jets are not demonstrated. IMPRESSION: Multiple right renal simple cortical cysts. Unable to determine postvoid residual.
--- NOTE | 2018-05-24 15:58 | CP.PCM.CON ---
History of Present Illness - History of Present Illness History of Present Illness: Nephrology Consultation Note: Assessment: Stable Acute Kidney Injury (N17.9) etiology unclear, differential include ATN, AIN ( due to recent abx), hemodynamic injury due to BP fluctuations HTN urgency [place]xiet Obesity Plan No acute need for renal replacement therapy at this time. Hypertension control with meds as ordered. Maintain hemodynamics stable. Avoid hypotension. Patient not on ACEI/ARB due to MARELY Monitor Input/Output, daily weights and renal function with basic metabolic panel Check urine Na/cr, urine eos. Check CPK, uric acid, renal and bladder sonogram further work up depending upon her clinical course Dose meds/antibiotics for reduced GFR. Avoid fleets enema/magnesium based laxatives. Avoid nephrotoxins/NSAIDs/ iodinated contrast (unless needed emergently) Glycemic control Further work up/management as per primary team Thanks for allowing me to participate in care of your patient. Will follow patient with you. Please call if any Qs Dr Bryan Jimenez Office: [phone] Chief Complaint; HTN Reason for consult: Acute Kidney Injury HPI: Pt is a 82 F with hx of hypertension (years), anxiety presented with complaints of not feeling well , depression and found to have MARELY hence renal consulted pt appears to be very anxious. denies CP/SOB/nausea/vomiting. reports recent antibiotics for UTI. pt says I want to get some rehab and will sign out myself tonight Denies OTC/herbal meds or NSAIDs No recent iodinated contrast exposure. BP high initially when came 184/100 now better ROS: Cardiovascular: No chest pain. Pulmonary: No shortness of breath Gastrointestinal: denies abdominal pain No nausea. No vomiting. Genitourinary: No pain while urinating. Denies blood in urine. All other negative except as mentioned in HPI Physical Examination: General Appearance: Comfortable, in no acute respiratory distress, co-operative . obese Vitals reviewed and noted as below Head; Atraumatic, normocephalic ENT: no ulcers no thrush. Tongue is midline. Oropharynx: no rash or ulcers. EYES: Pupils are equal, round and reactive to light accommodation. Eye muscles and extraocular movement intact. Sclera is anicteric. Neck; supple no lymphadenopathy, no thyromegaly or bruit Lungs: Normal respiratory rate/effort. Breath sounds bilateral equal and occasional left basal crackles Heart: Normal rate. s1s2 normal. No rub or gallop. Extremities: no edema. No varicose veins Neurological: Patient is alert, awake and oriented to person, place and time. No focal deficit. Strength bilateral appropriate and equal Skin: Warm and dry. Normal turgor. No rash. Palpitation: Normal elasticity for age Abdomen: Abdomen is soft. Bowel sounds +. There is no abdominal tenderness, no guarding/rigidity no organomegaly Psych: limited insight and anxious MSK: no joint tenderness or swelling. Digits and nails normal, no deformity : kidney or bladder not palpable Labs/imaging reviewed. Past medical history, past surgical history, family history, social history, allergy reviewed and noted as below Family hx: no hx of CKD. Rest non-contributory work up UA normal LVEF 55-60% renal sono: b/l cyst, no hydronephrosis Past Patient History - Infectious Disease Hx of Infectious Diseases: None - Past Medical History & Family History Past Medical History?: Yes - Past Social History Smoking Status: Never Smoked - CARDIAC Hx Cardiac Disorders: Yes Hx Hypercholesterolemia: Yes Hx Hypertension: Yes - PULMONARY Hx Chronic Obstructive Pulmonary Disease (COPD): Yes - NEUROLOGICAL Hx Neurological Disorder: No - HEENT Hx HEENT Problems: No - RENAL Hx Chronic Kidney Disease: Yes - ENDOCRINE/METABOLIC Hx Endocrine Disorders: No - HEMATOLOGICAL/ONCOLOGICAL Hx Blood Disorders: No Hx Hepatitis A: No Hx Hepatitis B: No Hx Hepatitis C: No - INTEGUMENTARY Hx Dermatological Problems: No - MUSCULOSKELETAL/RHEUMATOLOGICAL Hx Arthritis: Yes - GASTROINTESTINAL Hx Gastrointestinal Disorders: Yes Hx Diverticulitis: Yes Hx Gastritis: Yes - GENITOURINARY/GYNECOLOGICAL Hx Genitourinary Disorders: Yes Hx Urinary Tract Infection: Yes - PSYCHIATRIC Hx Substance Use: No - SURGICAL HISTORY Hx Surgeries: Yes Hx Herniorrhaphy: Yes Hx Splenectomy: Yes - ANESTHESIA Hx Anesthesia: Yes Hx Anesthesia Reactions: No Hx Malignant Hyperthermia: No Meds Allergies/Adverse Reactions: Allergies Allergy/AdvReac Type Severity Reaction Status Date / Time Sulfa (Sulfonamide Allergy Verified 05/07/18 11:18 Antibiotics) - Medications Medications: Current Medications Alprazolam (Xanax) 0.5 mg PO TID PRN PRN Reason: Anxiety Last Admin: 05/24/18 03:48 Dose: 0.5 mg Heparin Sodium (Porcine) (Heparin) 5,000 units SC Q8 [facility] Last Admin: 05/24/18 05:23 Dose: Not Given Ceftriaxone Sodium (Rocephin Iv 1 Gm Duplex) 50 mls @ 100 mls/hr IVPB DAILY [facility] PRN Reason: Protocol Last Admin: 05/24/18 10:00 Dose: 100 mls/hr Sodium Chloride (Sodium Chloride 0.9%) 1,000 mls @ 100 mls/hr IV .Q10H [facility] Last Admin: 05/24/18 09:45 Dose: 100 mls/hr Metoprolol Tartrate (Lopressor) 25 mg PO BID [facility] Last Admin: 05/24/18 09:34 Dose: 25 mg Results - Vital Signs Recent Vital Signs: Last Vital Signs Temp 97.9 F 05/24/18 08:00 Pulse 75 05/24/18 08:00 Resp 20 05/24/18 08:00 BP 136/67 05/24/18 09:34 Pulse Ox 96 05/24/18 08:00 - Labs Result Diagrams: 05/23/18 14:57 05/24/18 07:37 Labs: Laboratory Results - last 24 hr 05/23/18 05/23/18 05/23/18 14:23 14:57 14:57 WBC 8.9 RBC 3.95 Hgb 12.3 Hct 36.3 MCV 91.9 MCH 31.0 MCHC 33.8 RDW 14.9 H Plt Count 426 H MPV 9.0 Neut % (Auto) 58.4 Lymph % (Auto) 22.4 [place] % (Auto) 13.1 H Eos % (Auto) 4.8 H Baso % (Auto) 1.3 Neut # (Auto) 5.2 Lymph # (Auto) 2.0 [place] # (Auto) 1.2 H Eos # (Auto) 0.4 Baso # (Auto) 0.1 Sodium 145 Potassium 3.9 Chloride 108 H Carbon Dioxide 20 L Anion Gap 21 H BUN 63 H Creatinine 3.8 H Est GFR ( Amer) 14 Est GFR (Non-Af Amer) 11 POC Glucose (mg/dL) 125 H Random Glucose 111 H Calcium 9.6 Total Bilirubin 0.6 AST 15 ALT 19 Alkaline Phosphatase 161 H Troponin I 0.0150 NT-Pro-B Natriuret Pep 3320 H Total Protein 6.9 Albumin 3.4 L Globulin 3.5 Albumin/Globulin Ratio 1.0 Vitamin B12 TSH 3rd Generation 3.96 Urine Color Urine Clarity Urine pH Ur Specific [place] Urine Protein Urine Glucose (UA) Urine Ketones Urine Blood Urine Nitrate Urine Bilirubin Urine Urobilinogen Ur Leukocyte Esterase Urine WBC (Auto) Urine RBC (Auto) Ur Squamous Epith Cells Urine Bacteria Ur Random Sodium Urine Opiates Screen Urine Methadone Screen Ur Barbiturates Screen Ur Phencyclidine Scrn Ur Amphetamines Screen U Benzodiazepines Scrn U Oth Cocaine Metabols U Cannabinoids Screen Alcohol, Quantitative < 10 05/23/18 05/23/18 05/24/18 15:07 15:07 07:37 WBC RBC Hgb Hct MCV MCH MCHC RDW Plt Count MPV Neut % (Auto) Lymph % (Auto) [place] % (Auto) Eos % (Auto) Baso % (Auto) Neut # (Auto) Lymph # (Auto) [place] # (Auto) Eos # (Auto) Baso # (Auto) Sodium 144 Potassium 3.7 Chloride 108 H Carbon Dioxide 23 Anion Gap 17 BUN 55 H Creatinine 3.3 H Est GFR ( Amer) 16 Est GFR (Non-Af Amer) 13 POC Glucose (mg/dL) Random Glucose 97 Calcium 9.0 Total Bilirubin AST ALT Alkaline Phosphatase Troponin I NT-Pro-B Natriuret Pep Total Protein Albumin Globulin Albumin/Globulin Ratio Vitamin B12 568 TSH 3rd Generation 4.00 Urine Color Yellow Urine Clarity Hazy Urine pH 6.0 Ur Specific [place] 1.009 Urine Protein Negative Urine Glucose (UA) Normal Urine Ketones Negative Urine Blood Negative Urine Nitrate Negative Urine Bilirubin Negative Urine Urobilinogen Normal Ur Leukocyte Esterase Trace Urine WBC (Auto) 4 Urine RBC (Auto) 1 Ur Squamous Epith Cells 14 H Urine Bacteria Rare Ur Random Sodium Urine Opiates Screen Negative Urine Methadone Screen Negative Ur Barbiturates Screen Negative Ur Phencyclidine Scrn Negative Ur Amphetamines Screen Negative U Benzodiazepines Scrn Positive U Oth Cocaine Metabols Negative U Cannabinoids Screen Negative Alcohol, Quantitative 05/24/18 05/24/18 08:29 08:29 WBC RBC Hgb Hct MCV MCH MCHC RDW Plt Count MPV Neut % (Auto) Lymph % (Auto) [place] % (Auto) Eos % (Auto) Baso % (Auto) Neut # (Auto) Lymph # (Auto) [place] # (Auto) Eos # (Auto) Baso # (Auto) Sodium Potassium Chloride Carbon Dioxide Anion Gap BUN Creatinine Est GFR ( Amer) Est GFR (Non-Af Amer) POC Glucose (mg/dL) Random Glucose Calcium Total Bilirubin AST ALT Alkaline Phosphatase Troponin I NT-Pro-B Natriuret Pep Total Protein Albumin Globulin Albumin/Globulin Ratio Vitamin B12 TSH 3rd Generation Urine Color Straw Urine Clarity Clear Urine pH 6.0 Ur Specific [place] 1.006 Urine Protein Negative Urine Glucose (UA) Normal Urine Ketones Negative Urine Blood Negative Urine Nitrate Negative Urine Bilirubin Negative Urine Urobilinogen Normal Ur Leukocyte Esterase Neg Urine WBC (Auto) < 1 Urine RBC (Auto) 1 Ur Squamous Epith Cells < 1 Urine Bacteria Ur Random Sodium 117 Urine Opiates Screen Urine Methadone Screen Ur Barbiturates Screen Ur Phencyclidine Scrn Ur Amphetamines Screen U Benzodiazepines Scrn U Oth Cocaine Metabols U Cannabinoids Screen Alcohol, Quantitative
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
[2018-05-25] MEDS: Sodium Chloride 0.9% 1,000 ML IV SCH ×2 (05:24→15:16)
--- NOTE | 2018-05-25 08:59 | CP.PCM.PN ---
Subjective - Date & Time of Evaluation Date of Evaluation: 05/24/18 Time of Evaluation: 17:00 - Subjective Subjective: Pt was seen and examined during routine follow up today Objective - Vital Signs/Intake and Output Vital Signs (last 24 hours): Temp Pulse Resp BP Pulse Ox 97.6 F 89 20 148/95 H 95 05/25/18 07:00 05/25/18 07:00 05/25/18 07:00 05/25/18 07:00 05/25/18 07:00 Intake and Output: 05/25/18 05/25/18 06:59 18:59 Intake Total 600 920 Output Total 400 Balance 200 920 - Medications Medications: Current Medications Alprazolam (Xanax) 0.5 mg PO TID PRN PRN Reason: Anxiety Last Admin: 05/25/18 08:53 Dose: 0.5 mg Heparin Sodium (Porcine) (Heparin) 5,000 units SC Q8 [facility] Last Admin: 05/25/18 06:00 Dose: Not Given Ceftriaxone Sodium (Rocephin Iv 1 Gm Duplex) 50 mls @ 100 mls/hr IVPB DAILY [facility] PRN Reason: Protocol Last Admin: 05/24/18 10:00 Dose: 100 mls/hr Sodium Chloride (Sodium Chloride 0.9%) 1,000 mls @ 100 mls/hr IV .Q10H [facility] Last Admin: 05/25/18 05:24 Dose: 100 mls/hr Metoprolol Tartrate (Lopressor) 25 mg PO BID [facility] Last Admin: 05/24/18 17:53 Dose: 25 mg - Labs Labs: 05/23/18 14:57 05/24/18 07:37
[2018-05-25 10:01] LABS: SQUAMOUS EPITHIAL 2 /hpf (0-5); URINE BACTERIA RARE (<OCC); URINE BILIRUBIN NEGATIVE (NEGATIVE); URINE BLOOD NEGATIVE (NEGATIVE); URINE CLARITY Clear (Clear); URINE COLOR Straw (YELLOW); URINE GLUCOSE (UA) NORMAL (Normal); URINE LEUKOCYTE ESTERASE NEG Leu/uL (Negative); URINE PROTEIN NEGATIVE (NEGATIVE); URINE UROBILINOGEN NORMAL mg/dL (0.2-1.0)
[2018-05-25] MEDS: cefTRIAXone IV 1 gm in Dextros 50 ML IVPB SCH (10:39)
--- NOTE | 2018-05-25 11:23 | CP.PCM.PN ---
Subjective - Date & Time of Evaluation Date of Evaluation: 05/25/18 Time of Evaluation: 11:21 - Subjective Subjective: Nephrology Consultation Note: Assessment: Stable Acute Kidney Injury (N17.9) etiology unclear, differential include ATN, AIN ( due to recent abx), hemodynamic injury due to BP fluctuations HTN urgency Anxiety Obesity recent UTI Plan No acute need for renal replacement therapy at this time. pt refused labs today. Hypertension control with meds as ordered. Maintain hemodynamics stable. Avoid hypotension. Patient not on ACEI/ARB due to MARELY Monitor Input/Output, daily weights and renal function with basic metabolic panel further work up depending upon her clinical course. so far prelim work up not revealing the causes Dose meds/antibiotics for reduced GFR. Avoid fleets enema/magnesium based laxatives. Avoid nephrotoxins/NSAIDs/ iodinated contrast (unless needed emergently) Glycemic control Further work up/management as per primary team Thanks for allowing me to participate in care of your patient. Will follow patient with you. Please call if any Qs. had d/w team Dr Bryan Jimenez Office: [phone] Chief Complaint; HTN Reason for consult: Acute Kidney Injury HPI: Pt is a 82 F with hx of hypertension (years), anxiety presented with complaints of not feeling well , depression and found to have MARELY hence renal consulted pt appears to be very anxious. denies CP/SOB/nausea/vomiting. reports recent antibiotics for UTI. pt says I want to get some rehab and will sign out myself tonight Denies OTC/herbal meds or NSAIDs No recent iodinated contrast exposure. BP high initially when came 184/100 now better ROS: Cardiovascular: No chest pain. Pulmonary: No shortness of breath Gastrointestinal: denies abdominal pain No nausea. No vomiting. Genitourinary: No pain while urinating. Denies blood in urine. All other negative except as mentioned in HPI Physical Examination: General Appearance: Comfortable, in no acute respiratory distress, co-operative . obese Vitals reviewed and noted as below Head; Atraumatic, normocephalic ENT: no ulcers no thrush. Tongue is midline. Oropharynx: no rash or ulcers. EYES: Pupils are equal, round and reactive to light accommodation. Eye muscles and extraocular movement intact. Sclera is anicteric. Neck; supple no lymphadenopathy, no thyromegaly or bruit Lungs: Normal respiratory rate/effort. Breath sounds bilateral equal and occasional left basal crackles Heart: Normal rate. s1s2 normal. No rub or gallop. Extremities: no edema. No varicose veins Neurological: Patient is alert, awake and oriented to person, place and time. No focal deficit. Strength bilateral appropriate and equal Skin: Warm and dry. Normal turgor. No rash. Palpitation: Normal elasticity for age Abdomen: Abdomen is soft. Bowel sounds +. There is no abdominal tenderness, no guarding/rigidity no organomegaly Psych: limited insight and anxious MSK: no joint tenderness or swelling. Digits and nails normal, no deformity : kidney or bladder not palpable Labs/imaging reviewed. Past medical history, past surgical history, family history, social history, allergy reviewed and noted as below Family hx: no hx of CKD. Rest non-contributory work up UA normal LVEF 55-60% renal sono: b/l cyst, no hydronephrosis Objective - Vital Signs/Intake and Output Vital Signs (last 24 hours): Temp Pulse Resp BP Pulse Ox 97.6 F 89 20 148/95 H 95 05/25/18 07:00 05/25/18 07:00 05/25/18 07:00 05/25/18 09:00 05/25/18 07:00 Intake and Output: 05/25/18 05/25/18 06:59 18:59 Intake Total 600 920 Output Total 400 Balance 200 920 - Medications Medications: Current Medications Alprazolam (Xanax) 0.5 mg PO TID PRN PRN Reason: Anxiety Last Admin: 05/25/18 08:53 Dose: 0.5 mg Heparin Sodium (Porcine) (Heparin) 5,000 units SC Q8 [facility] Last Admin: 05/25/18 06:00 Dose: Not Given Ceftriaxone Sodium (Rocephin Iv 1 Gm Duplex) 50 mls @ 100 mls/hr IVPB DAILY [facility] PRN Reason: Protocol Last Admin: 05/25/18 10:39 Dose: 100 mls/hr Sodium Chloride (Sodium Chloride 0.9%) 1,000 mls @ 100 mls/hr IV .Q10H [facility] Last Admin: 05/25/18 05:24 Dose: 100 mls/hr Metoprolol Tartrate (Lopressor) 25 mg PO BID [facility] Last Admin: 05/25/18 09:00 Dose: 25 mg - Labs Labs: 05/23/18 14:57 05/24/18 07:37
[2018-05-25 13:51] LABS: BASO # 0.1 K/uL (0.0-0.2); BASO % 1.4 % (0.0-2.0); EOS # 0.3 K/uL (0.0-0.7); EOS % 2.8 % (0.0-4.0); HEMOGLOBIN 12.6 g/dL (11.0-16.0); LYMPH # 2.1 K/uL (1.0-4.3); LYMPH % 22.2 % (20.0-40.0); MEAN CELL VOLUME 92.1 fL (81.0-99.0); MEAN CORPUSCULAR HEMOGLOBIN 31.8 pg (27.0-31.0); MEAN CORPUSCULAR HGB CONC 34.5 g/dL (33.0-37.0); MONO # 1.4 K/uL (0.0-0.8); MONO % 14.7 % (0.0-10.0); NEUT # 5.7 K/uL (1.8-7.0); NEUT % 58.9 % (50.0-75.0); NRBC % 0.2 % (0.0-2.0); RBC 3.97 Mil/uL (3.80-5.20); RED CELL DISTRIBUTION WIDTH 15.2 % (11.5-14.5); WHITE BLOOD COUNT 9.6 K/uL (4.8-10.8)
[2018-05-25 14:13] LABS: ALB/GLOB RATIO 0.9 (1.0-2.1); ALBUMIN 3.3 g/dL (3.5-5.0); CALCIUM 8.9 mg/dl (8.6-10.4); URIC ACID 5.9 mg/dL (2.2-7.5)
[2018-05-25 14:55] LABS: HEPATITIS A IGM NEGATIVE (NEGATIVE); HEPATITIS B CORE AB NEGATIVE (NEGATIVE); HEPATITIS B SURFACE AG Negative (NEGATIVE); HEPATITIS C ANTIBODY NEGATIVE (NEGATIVE)
[2018-05-25] MEDS ORDERED: Potassium Chloride 20 mEq ER Tab PO SCH (15:15)
--- NOTE | 2018-05-25 21:34 | CARD ---
APPROVED REPORT Date of service: 05/23/2018 EKG Measurement Heart [id number] <Conclusion> Normal sinus rhythm Moderate voltage criteria for LVH, may be normal variant Borderline ECG
--- NOTE | 2018-05-25 21:49 | CP.PCM.PN ---
Subjective - Date & Time of Evaluation Date of Evaluation: 05/25/18 Time of Evaluation: 21:49 - Subjective Subjective: No change in her condition. Normal Uric acid in blood. Very low vitamin D less than 12.8 She has a negative hepatitis A,B,C She refused Carotid Doppler and also the C.T Brain. U.T.I: Urine culture is abnormal showing gram Negative Rods. Objective - Vital Signs/Intake and Output Vital Signs (last 24 hours): Temp Pulse Resp BP Pulse Ox 97.8 F 67 20 150/78 96 05/25/18 16:05 05/25/18 16:05 05/25/18 16:05 05/25/18 17:29 05/25/18 16:05 Intake and Output: 05/25/18 05/26/18 18:59 06:59 Intake Total 2270 Output Total 1700 Balance 570 - Medications Medications: Current Medications Alprazolam (Xanax) 0.5 mg PO TID PRN PRN Reason: Anxiety Last Admin: 05/25/18 17:01 Dose: 0.5 mg Ergocalciferol (Drisdol 50,000 Intl Units Cap) 1 cap PO Q7D [facility] Heparin Sodium (Porcine) (Heparin) 5,000 units SC Q8 [facility] Last Admin: 05/25/18 21:12 Dose: Not Given Sodium Chloride (Sodium Chloride 0.9%) 1,000 mls @ 100 mls/hr IV .Q10H [facility] Last Admin: 05/25/18 15:16 Dose: 100 mls/hr Ceftriaxone Sodium 1 gm/ (Sodium Chloride) 100 mls @ 100 mls/hr IVPB DAILY [facility] PRN Reason: Protocol Metoprolol Tartrate (Lopressor) 25 mg PO BID [facility] Last Admin: 05/25/18 17:29 Dose: 25 mg - Labs Labs: 05/25/18 13:43 05/25/18 13:43 Assessment and Plan (1) Acute kidney injury Status: Acute (2) Weakness Status: Acute (3) A-fib Status: Acute (4) Abdominal pain Status: Acute (5) Acute UTI Status: Acute (6) Acute renal failure Status: Acute (7) Anxiety Status: Acute (8) Acute kidney injury (nontraumatic) Status: Acute (9) Seizures Status: Acute (10) CVA (cerebral vascular accident) Status: Acute
--- NOTE | 2018-05-25 23:41 | CP.PCM.PN ---
Subjective - Date & Time of Evaluation Date of Evaluation: 05/25/18 Time of Evaluation: 18:35 - Subjective Subjective: Pt seen & examined, is feeling better, on Iv fluids, her urine cultures are positive for gram neg rods on rocephin, no nause, vomitting Objective - Vital Signs/Intake and Output Vital Signs (last 24 hours): Temp Pulse Resp BP Pulse Ox 97.8 F 67 20 150/78 96 05/25/18 16:05 05/25/18 16:05 05/25/18 16:05 05/25/18 17:29 05/25/18 16:05 Intake and Output: 05/25/18 05/26/18 18:59 06:59 Intake Total 2270 1200 Output Total 1700 850 Balance 570 350 - Medications Medications: Current Medications Alprazolam (Xanax) 0.5 mg PO TID PRN PRN Reason: Anxiety Last Admin: 05/25/18 17:01 Dose: 0.5 mg Calcium Carbonate (Oscal) 500 mg PO BID [facility] Ergocalciferol (Drisdol 50,000 Intl Units Cap) 1 cap PO Q7D [facility] Heparin Sodium (Porcine) (Heparin) 5,000 units SC Q8 [facility] Last Admin: 05/25/18 21:12 Dose: Not Given Sodium Chloride (Sodium Chloride 0.9%) 1,000 mls @ 100 mls/hr IV .Q10H [facility] Last Admin: 05/25/18 15:16 Dose: 100 mls/hr Ceftriaxone Sodium 1 gm/ (Sodium Chloride) 100 mls @ 100 mls/hr IVPB DAILY [facility] PRN Reason: Protocol Metoprolol Tartrate (Lopressor) 25 mg PO BID [facility] Last Admin: 05/25/18 17:29 Dose: 25 mg - Labs Labs: 05/25/18 13:43 05/25/18 13:43 - Constitutional Appears: No Acute Distress - Eye Exam Eye Exam: EOMI, Normal appearance, PERRL Pupil Exam: NORMAL ACCOMODATION, PERRL - ENT Exam ENT Exam: Mucous Membranes Moist, Normal Exam - Neck Exam Neck Exam: Full ROM, Normal Inspection. absent: Lymphadenopathy - Respiratory Exam Respiratory Exam: Clear to Ausculation Bilateral, NORMAL BREATHING PATTERN - Cardiovascular Exam Cardiovascular Exam: REGULAR RHYTHM, +S1, +S2. absent: Murmur - GI/Abdominal Exam GI & Abdominal Exam: Soft, Normal Bowel Sounds. absent: Tenderness - Rectal Exam Rectal Exam: Deferred Assessment and Plan (1) Acute kidney injury Status: Acute (2) HTN (hypertension) Status: Acute (3) Acute prerenal azotemia Status: Acute (4) UTI (urinary tract infection) Status: Acute
[2018-05-26] MEDS: Sodium Chloride 0.9% 1,000 ML IV SCH ×3 (02:00→21:35)
[2018-05-26 07:40] LABS: BASO # 0.1 K/uL (0.0-0.2); EOS # 0.5 K/uL (0.0-0.7); EOS % 5.8 % (0.0-4.0); HEMOGLOBIN 11.8 g/dL (11.0-16.0); LYMPH # 2.2 K/uL (1.0-4.3); LYMPH % 26.1 % (20.0-40.0); MEAN CELL VOLUME 92.8 fL (81.0-99.0); MEAN CORPUSCULAR HEMOGLOBIN 31.5 pg (27.0-31.0); MEAN CORPUSCULAR HGB CONC 33.9 g/dL (33.0-37.0); MEAN PLATELET VOLUME 9.5 fL (7.2-11.7); MONO # 1.3 K/uL (0.0-0.8); MONO % 15.4 % (0.0-10.0); NEUT # 4.4 K/uL (1.8-7.0); NEUT % 51.7 % (50.0-75.0); NRBC % 0.2 % (0.0-2.0); RBC 3.74 Mil/uL (3.80-5.20); RED CELL DISTRIBUTION WIDTH 15.3 % (11.5-14.5); WHITE BLOOD COUNT 8.4 K/uL (4.8-10.8)
[2018-05-26 07:56] LABS: ALB/GLOB RATIO 0.9 (1.0-2.1); ALBUMIN 2.9 g/dL (3.5-5.0); CALCIUM 8.7 mg/dl (8.6-10.4)
[2018-05-26] MEDS: Calcium Carbonate 500 mg Chewable Antacid Tab PO SCH ×2 (09:50→18:10)
[2018-05-26] MEDS ORDERED: Ergocalciferol 50,000 Intl Units Cap PO SCH (10:00)
[2018-05-26 11:41] LABS: ANA PATTERN HOMOGENOUS
--- NOTE | 2018-05-26 14:48 | CP.PCM.PN ---
Subjective - Date & Time of Evaluation Date of Evaluation: 05/26/18 Time of Evaluation: 14:47 - Subjective Subjective: Nephrology Consultation Note: Assessment: Stable Acute Kidney Injury (N17.9) etiology unclear but improving with IVF suggesting pre-renal component. Other differentials included ATN, AIN (due to recent abx), hemodynamic injury due to BP fluctuations HTN urgency Anxiety Obesity recent UTI vit D def Plan No acute need for renal replacement therapy at this time. pt refused labs today. Hypertension control with meds as ordered. Maintain hemodynamics stable. Avoid hypotension. Patient not on ACEI/ARB due to MARELY Monitor Input/Output, daily weights and renal function with basic metabolic panel continue with IVF as cr down trending started weekly Vit D Dose meds/antibiotics for reduced GFR. Avoid fleets enema/magnesium based laxatives. Avoid nephrotoxins/NSAIDs/ iodinated contrast (unless needed emergently) Glycemic control Further work up/management as per primary team Thanks for allowing me to participate in care of your patient. Will follow patient with you. Please call if any Qs. had d/w team Dr Bryan Jimenez Office: [phone] Chief Complaint; HTN Reason for consult: Acute Kidney Injury HPI: Pt is a 82 F with hx of hypertension (years), anxiety presented with complaints of not feeling well , depression and found to have MARELY hence renal consulted pt appears to be very anxious. denies CP/SOB/nausea/vomiting. reports recent antibiotics for UTI. pt says I want to get some rehab and will sign out myself tonight Denies OTC/herbal meds or NSAIDs No recent iodinated contrast exposure. BP high initially when came 184/100 now better ROS: Cardiovascular: No chest pain. Pulmonary: No shortness of breath Gastrointestinal: denies abdominal pain No nausea. No vomiting. Genitourinary: No pain while urinating. Denies blood in urine. All other negative except as mentioned in HPI Physical Examination: General Appearance: Comfortable, in no acute respiratory distress, co-operative . obese Vitals reviewed and noted as below Head; Atraumatic, normocephalic ENT: no ulcers no thrush. Tongue is midline. Oropharynx: no rash or ulcers. EYES: Pupils are equal, round and reactive to light accommodation. Eye muscles and extraocular movement intact. Sclera is anicteric. Neck; supple no lymphadenopathy, no thyromegaly or bruit Lungs: Normal respiratory rate/effort. Breath sounds bilateral equal and occasional left basal crackles Heart: Normal rate. s1s2 normal. No rub or gallop. Extremities: no edema. No varicose veins Neurological: Patient is alert, awake and oriented to person, place and time. No focal deficit. Strength bilateral appropriate and equal Skin: Warm and dry. Normal turgor. No rash. Palpitation: Normal elasticity for age Abdomen: Abdomen is soft. Bowel sounds +. There is no abdominal tenderness, no guarding/rigidity no organomegaly Psych: limited insight and anxious MSK: no joint tenderness or swelling. Digits and nails normal, no deformity : kidney or bladder not palpable Labs/imaging reviewed. Past medical history, past surgical history, family history, social history, allergy reviewed and noted as below Family hx: no hx of CKD. Rest non-contributory work up UA normal LVEF 55-60% renal sono: b/l cyst, no hydronephrosis Objective - Vital Signs/Intake and Output Vital Signs (last 24 hours): Temp Pulse Resp BP Pulse Ox 99.4 F 77 20 139/74 95 05/26/18 07:16 05/26/18 07:16 05/26/18 07:16 05/26/18 09:13 05/26/18 07:16 Intake and Output: 05/26/18 05/26/18 06:59 18:59 Intake Total 2240 Output Total 1150 Balance 1090 - Medications Medications: Current Medications Alprazolam (Xanax) 0.5 mg PO TID PRN PRN Reason: Anxiety Last Admin: 05/26/18 09:50 Dose: 0.5 mg Calcium Carbonate (Tums) 500 mg PO BID [facility] Last Admin: 05/26/18 09:50 Dose: 500 mg Ergocalciferol (Drisdol 50,000 Intl Units Cap) 1 cap PO Q7D [facility] Last Admin: 05/26/18 09:13 Dose: 1 cap Heparin Sodium (Porcine) (Heparin) 5,000 units SC Q8 [facility] Last Admin: 05/26/18 13:35 Dose: Not Given Sodium Chloride (Sodium Chloride 0.9%) 1,000 mls @ 100 mls/hr IV .Q10H [facility] Last Admin: 05/26/18 13:36 Dose: Not Given Ceftriaxone Sodium 1 gm/ (Sodium Chloride) 100 mls @ 100 mls/hr IVPB DAILY [facility] PRN Reason: Protocol Last Admin: 05/26/18 09:14 Dose: 100 mls/hr Metoprolol Tartrate (Lopressor) 25 mg PO BID [facility] Last Admin: 05/26/18 09:13 Dose: 25 mg - Labs Labs: 05/26/18 07:30 05/26/18 07:30
--- NOTE | 2018-05-26 22:35 | CP.PCM.PN ---
Subjective - Date & Time of Evaluation Date of Evaluation: 05/26/18 Time of Evaluation: 21:20 - Subjective Subjective: No change in her condition. She has abnormal test for Rheumatoid Arthritis and a possible Systemic Lupus. Right Trigger finger, Ring Finger with tender movements. Abnormally high Rh Factor and significant High AMY at 1/320 She refused carotid Doppler and C.T Brain High Blood Pressure. She is receiving Ceftriaxone for U.T.I and Vitamin D and Oscal for Low Vitamin D level Objective - Vital Signs/Intake and Output Vital Signs (last 24 hours): Temp Pulse Resp BP Pulse Ox 98.4 F 78 20 148/88 96 05/26/18 16:00 05/26/18 16:00 05/26/18 16:00 05/26/18 18:11 05/26/18 16:00 Intake and Output: 05/26/18 05/27/18 18:59 06:59 Intake Total 1260 1050 Output Total 650 Balance 1260 400 - Medications Medications: Current Medications Alprazolam (Xanax) 0.5 mg PO TID PRN PRN Reason: Anxiety Last Admin: 05/26/18 19:32 Dose: 0.5 mg Calcium Carbonate (Tums) 500 mg PO BID [facility] Last Admin: 05/26/18 18:10 Dose: 500 mg Ergocalciferol (Drisdol 50,000 Intl Units Cap) 1 cap PO Q7D [facility] Last Admin: 05/26/18 09:13 Dose: 1 cap Heparin Sodium (Porcine) (Heparin) 5,000 units SC Q8 [facility] Last Admin: 05/26/18 21:35 Dose: Not Given Sodium Chloride (Sodium Chloride 0.9%) 1,000 mls @ 100 mls/hr IV .Q10H [facility] Last Admin: 05/26/18 21:35 Dose: 100 mls/hr Ceftriaxone Sodium 1 gm/ (Sodium Chloride) 100 mls @ 100 mls/hr IVPB DAILY [facility] PRN Reason: Protocol Last Admin: 05/26/18 09:14 Dose: 100 mls/hr Metoprolol Tartrate (Lopressor) 25 mg PO BID [facility] Last Admin: 05/26/18 18:11 Dose: 25 mg - Labs Labs: 05/26/18 07:30 05/26/18 07:30 Assessment and Plan (1) Acute kidney injury Status: Acute (2) Weakness Status: Acute (3) A-fib Status: Acute (4) Abdominal pain Status: Acute (5) Acute UTI Status: Acute (6) Acute renal failure Status: Acute (7) Anxiety Status: Acute (8) Acute kidney injury (nontraumatic) Status: Acute (9) Seizures Status: Acute (10) CVA (cerebral vascular accident) Status: Acute
--- NOTE | 2018-05-27 01:28 | CP.PCM.PN ---
Subjective - Date & Time of Evaluation Date of Evaluation: 05/26/18 Time of Evaluation: 16:00 - Subjective Subjective: pt seen and examined, appears to be very anxious. denies CP/SOB/nausea/ vomiting. reports recent antibiotics for UTI. pt says I want to get some rehab and will sign out myself tonight Objective - Vital Signs/Intake and Output Vital Signs (last 24 hours): Temp Pulse Resp BP Pulse Ox 98.2 F 88 20 162/89 H 97 05/27/18 00:00 05/27/18 00:00 05/27/18 00:00 05/27/18 00:00 05/27/18 00:00 Intake and Output: 05/26/18 05/27/18 18:59 06:59 Intake Total 1260 1050 Output Total 650 Balance 1260 400 - Medications Medications: Current Medications Alprazolam (Xanax) 0.5 mg PO TID PRN PRN Reason: Anxiety Last Admin: 05/26/18 19:32 Dose: 0.5 mg Calcium Carbonate (Tums) 500 mg PO BID [facility] Last Admin: 05/26/18 18:10 Dose: 500 mg Ergocalciferol (Drisdol 50,000 Intl Units Cap) 1 cap PO Q7D [facility] Last Admin: 05/26/18 09:13 Dose: 1 cap Heparin Sodium (Porcine) (Heparin) 5,000 units SC Q8 [facility] Last Admin: 05/26/18 21:35 Dose: Not Given Sodium Chloride (Sodium Chloride 0.9%) 1,000 mls @ 100 mls/hr IV .Q10H [facility] Last Admin: 05/26/18 21:35 Dose: 100 mls/hr Ceftriaxone Sodium 1 gm/ (Sodium Chloride) 100 mls @ 100 mls/hr IVPB DAILY [facility] PRN Reason: Protocol Last Admin: 05/26/18 09:14 Dose: 100 mls/hr Metoprolol Tartrate (Lopressor) 25 mg PO BID [facility] Last Admin: 05/26/18 18:11 Dose: 25 mg - Labs Labs: 05/26/18 07:30 05/26/18 07:30 - Constitutional Appears: No Acute Distress - Head Exam Head Exam: ATRAUMATIC, NORMAL INSPECTION, NORMOCEPHALIC - Eye Exam Eye Exam: EOMI, Normal appearance, PERRL Pupil Exam: NORMAL ACCOMODATION, PERRL - ENT Exam ENT Exam: Mucous Membranes Moist, Normal Exam - Respiratory Exam Respiratory Exam: Clear to Ausculation Bilateral, NORMAL BREATHING PATTERN - Cardiovascular Exam Cardiovascular Exam: REGULAR RHYTHM, +S1, +S2. absent: Murmur - GI/Abdominal Exam GI & Abdominal Exam: Soft, Normal Bowel Sounds. absent: Tenderness - Rectal Exam Rectal Exam: Deferred Assessment and Plan (1) Acute kidney injury Status: Acute (2) HTN (hypertension) Status: Acute (3) Acute prerenal azotemia Status: Acute (4) UTI (urinary tract infection) Status: Acute
[2018-05-27 07:02] LABS: BASO # 0.1 K/uL (0.0-0.2); BASO % 1.3 % (0.0-2.0); EOS # 0.5 K/uL (0.0-0.7); EOS % 5.8 % (0.0-4.0); HEMOGLOBIN 12.3 g/dL (11.0-16.0); LYMPH # 2.7 K/uL (1.0-4.3); LYMPH % 28.9 % (20.0-40.0); MEAN CELL VOLUME 93.3 fL (81.0-99.0); MEAN CORPUSCULAR HEMOGLOBIN 31.2 pg (27.0-31.0); MEAN CORPUSCULAR HGB CONC 33.4 g/dL (33.0-37.0); MEAN PLATELET VOLUME 9.9 fL (7.2-11.7); MONO # 1.4 K/uL (0.0-0.8); MONO % 14.5 % (0.0-10.0); NEUT # 4.7 K/uL (1.8-7.0); NEUT % 49.5 % (50.0-75.0); NRBC % 0.2 % (0.0-2.0); RBC 3.94 Mil/uL (3.80-5.20); RED CELL DISTRIBUTION WIDTH 15.4 % (11.5-14.5); WHITE BLOOD COUNT 9.4 K/uL (4.8-10.8)
[2018-05-27 07:27] VITALS: BP 153/82; PULSE 90; TEMP 97.9; O2SAT 95
[2018-05-27 07:31] LABS: ALBUMIN 3.1 g/dL (3.5-5.0); CALCIUM 8.8 mg/dl (8.6-10.4)
[2018-05-27] MEDS ORDERED: Potassium Chloride 20 mEq ER Tab PO ONE (09:36)
[2018-05-27] MEDS: Calcium Carbonate 500 mg Chewable Antacid Tab PO SCH (09:42)
[2018-05-27] MEDS: Sodium Chloride 0.9% 1,000 ML IV SCH (09:49)
--- NOTE | 2018-05-27 12:14 | CP.PCM.PN ---
Subjective - Date & Time of Evaluation Date of Evaluation: 05/27/18 Time of Evaluation: 12:11 - Subjective Subjective: PT CLEARED FOR D/C HOME TODAY PER DR. MORGAN. RHEUMATOLOGY CONSULT TO BE DONE OUTPATIENT PER DR. MORGAN. RX SENT TO PT'S PHARMACY FOR VIT D SUPPLEMENTS. I DISCUSSED NUVIA AGAIN WITH THE PT, HOWEVER, SHE IS ADAMANTLY REFUSING AND WISHES TO GO HOME. PT STATES SHE LIVES WITH HER SON AND USES A WALKER AND IS COMFORTABLE WITH BEING D/C HOME TODAY. PER PT, HER SON CAN PICK HER UP TODAY WITH HER WALKER. SHE WILL F/U WITH DR. MORGAN IN THE OFFICE. ALL D/C INSTRUCTIONS DISCUSSED TO PT. NO FURTHER ORDERS. -FOLLOW UP WITH DR. MORGAN IN THE OFFICE WITHIN 1 WEEK OF DISCHARGE---CALL THE OFFICE ON TUESDAY TO MAKE AN APPOINTMENT. -PER DR. JHAVERI (NEUROLOGY) RECOMMENDATIONS: MAKE AN APPOINTMENT WITH DR. TINAJERO (QUALITY LIAISON) IN HIS OFFICE FOR FURTHER EVALUATION OF RHEUMATOID ARTHRITIS. -CONTINUE TAKING YOUR XANAX AND METOPROLOL USUAL. -NEW PRESCRIPTION RECOMMENDED BY THE KIDNEY DOCTOR (DR. THOMAS): VITAMIN D SUPPLEMENT---TAKE 1 CAPSULE BY MOUTH ONCE A WEEK--TAKE EVERY TUESDAY (START ON 06/02/18). -SINCE YOU ARE REFUSING SUBACUTE REHAB AT THIS TIME, WE HAVE ARRANGED FOR HOME PHYSICAL THERAPY. THE COMPANY THAT YOU ARE REFERRED TO WILL CONTACT YOU EARLY NEXT WEEK TO SET UP A DAY/TIME FOR THEM TO SEE YOU IN YOUR HOME. -FOR FURTHER CONCERNS OR QUESTIONS, CONTACT DR. MORGAN'S OFFICE. Objective - Vital Signs/Intake and Output Vital Signs (last 24 hours): Temp Pulse Resp BP Pulse Ox 97.9 F 90 20 153/82 H 95 05/27/18 07:26 05/27/18 07:26 05/27/18 07:26 05/27/18 09:41 05/27/18 07:26 Intake and Output: 05/27/18 05/27/18 06:59 18:59 Intake Total 2150 200 Output Total 1650 Balance 500 200 - Medications Medications: Current Medications Alprazolam (Xanax) 0.5 mg PO TID PRN PRN Reason: Anxiety Last Admin: 05/27/18 09:51 Dose: 0.5 mg Calcium Carbonate (Tums) 500 mg PO BID [facility] Last Admin: 05/27/18 09:42 Dose: 500 mg Ergocalciferol (Drisdol 50,000 Intl Units Cap) 1 cap PO Q7D [facility] Last Admin: 05/26/18 09:13 Dose: 1 cap Heparin Sodium (Porcine) (Heparin) 5,000 units SC Q8 [facility] Last Admin: 05/27/18 05:50 Dose: Not Given Sodium Chloride (Sodium Chloride 0.9%) 1,000 mls @ 100 mls/hr IV .Q10H [facility] Last Admin: 05/27/18 09:49 Dose: 100 mls/hr Ceftriaxone Sodium 1 gm/ (Sodium Chloride) 100 mls @ 100 mls/hr IVPB DAILY [facility] PRN Reason: Protocol Last Admin: 05/27/18 09:41 Dose: 100 mls/hr Metoprolol Tartrate (Lopressor) 25 mg PO BID [facility] Last Admin: 05/27/18 09:41 Dose: 25 mg - Labs Labs: 05/27/18 06:52 05/27/18 06:52
--- NOTE | 2018-05-27 16:02 | CP.PCM.PN ---
Subjective - Date & Time of Evaluation Date of Evaluation: 05/27/18 Time of Evaluation: 12:40 - Subjective Subjective: Patient refused to see [facility] for Arthritis and Right Ring Trigger finger She had high AMY 1;320 and a positive Rheumatoid Factor. She has low vitamin D for which she receives replacement. She has difficulty walking and uses a walker. She refused her EEG, CT Brain and Carotid Doppler. She still has High Blood Pressure. UTI is being treated. Objective - Vital Signs/Intake and Output Vital Signs (last 24 hours): Temp Pulse Resp BP Pulse Ox 97.9 F 90 20 153/82 H 95 05/27/18 07:26 05/27/18 07:26 05/27/18 07:26 05/27/18 09:41 05/27/18 07:26 Intake and Output: 05/27/18 05/27/18 06:59 18:59 Intake Total 2150 200 Output Total 1650 Balance 500 200 - Labs Labs: 05/27/18 06:52 05/27/18 06:52 Assessment and Plan (1) Acute kidney injury Status: Acute (2) Weakness Status: Acute (3) A-fib Status: Acute (4) Abdominal pain Status: Acute (5) Acute UTI Status: Acute (6) Acute renal failure Status: Acute (7) Anxiety Status: Acute (8) Acute kidney injury (nontraumatic) Status: Acute (9) Seizures Status: Acute (10) CVA (cerebral vascular accident) Status: Acute
--- NOTE | 2018-05-28 00:14 | CP.PCM.DIS ---
Provider - Provider Date of Admission: 05/23/18 15:28 Attending physician: Gabriele Hutchinson MD Time Spent in preparation of Discharge (in minutes): 45 Diagnosis - Discharge Diagnosis (1) Acute kidney injury Status: Acute (2) HTN (hypertension) Status: Acute (3) Acute prerenal azotemia Status: Acute (4) UTI (urinary tract infection) Status: Acute Hospital Course - Lab Results Lab Results: Micro Results 05/24/18 04:41 Urine Urine Culture - Final Gram Negative Rolando Most Recent Lab Values WBC 9.4 K/uL (4.8-10.8) 05/27/18 06:52 RBC 3.94 Mil/uL (3.80-5.20) 05/27/18 06:52 Hgb 12.3 g/dL (11.0-16.0) 05/27/18 06:52 Hct 36.7 % (34.0-47.0) 05/27/18 06:52 MCV 93.3 fL (81.0-99.0) 05/27/18 06:52 MCH 31.2 pg (27.0-31.0) H 05/27/18 06:52 MCHC 33.4 g/dL (33.0-37.0) 05/27/18 06:52 RDW 15.4 % (11.5-14.5) H 05/27/18 06:52 Plt Count 390 K/uL (130-400) 05/27/18 06:52 MPV 9.9 fL (7.2-11.7) 05/27/18 06:52 Neut % (Auto) 49.5 % (50.0-75.0) L 05/27/18 06:52 Lymph % (Auto) 28.9 % (20.0-40.0) 05/27/18 06:52 [place] % (Auto) 14.5 % (0.0-10.0) H 05/27/18 06:52 Eos % (Auto) 5.8 % (0.0-4.0) H 05/27/18 06:52 Baso % (Auto) 1.3 % (0.0-2.0) 05/27/18 06:52 Neut # (Auto) 4.7 K/uL (1.8-7.0) 05/27/18 06:52 Lymph # (Auto) 2.7 K/uL (1.0-4.3) 05/27/18 06:52 [place] # (Auto) 1.4 K/uL (0.0-0.8) H 05/27/18 06:52 Eos # (Auto) 0.5 K/uL (0.0-0.7) 05/27/18 06:52 Baso # (Auto) 0.1 K/uL (0.0-0.2) 05/27/18 06:52 Sodium 144 mmol/L (132-148) 05/27/18 06:52 Potassium 3.5 mmol/L (3.6-5.2) L 05/27/18 06:52 Chloride 111 mmol/L (98-107) H 05/27/18 06:52 Carbon Dioxide 21 mmol/L (22-30) L 05/27/18 06:52 Anion Gap 16 (10-20) 05/27/18 06:52 BUN 25 mg/dL (7-17) H 05/27/18 06:52 Creatinine 1.6 mg/dL (0.7-1.2) H 05/27/18 06:52 Est GFR ( Amer) 37 05/27/18 06:52 Est GFR (Non-Af Amer) 31 05/27/18 06:52 POC Glucose (mg/dL) 125 mg/dL (65-110) H 05/23/18 14:23 Random Glucose 114 mg/dL (65-105) H 05/27/18 06:52 Uric Acid 5.9 mg/dL (2.2-7.5) 05/25/18 13:43 Calcium 8.8 mg/dl (8.6-10.4) 05/27/18 06:52 Phosphorus 4.9 mg/dL (2.5-4.5) H 05/25/18 13:43 Magnesium 1.6 mg/dL (1.6-2.3) 05/25/18 13:43 Total Bilirubin 0.4 mg/dL (0.2-1.3) 05/27/18 06:52 AST 14 U/L (14-36) 05/27/18 06:52 ALT 18 U/L (9-52) 05/27/18 06:52 Alkaline Phosphatase 142 U/L (38-126) H 05/27/18 06:52 Total Creatine Kinase 36 U/L (30-135) 05/24/18 07:37 Troponin I 0.0150 ng/mL (0.00-0.120) 05/23/18 14:57 NT-Pro-B Natriuret Pep 3320 pg/mL (0-900) H 05/23/18 14:57 Total Protein 6.2 g/dL (6.3-8.3) L 05/27/18 06:52 Albumin 3.1 g/dL (3.5-5.0) L 05/27/18 06:52 Globulin 3.1 gm/dL (2.2-3.9) 05/27/18 06:52 Albumin/Globulin Ratio 1.0 (1.0-2.1) 05/27/18 06:52 Vitamin B12 568 pg/mL (239-931) 05/24/18 07:37 25-OH Vitamin D Total < 12.8 NG/ML (30.0-100.0) L 05/25/18 13:43 TSH 3rd Generation 4.00 mIU/L (0.46-4.68) 05/24/18 07:37 Urine Color Straw (YELLOW) 05/25/18 09:53 Urine Clarity Clear (Clear) 05/25/18 09:53 Urine pH 7.0 (5.0-8.0) 05/25/18 09:53 Ur Specific [place] 1.006 (1.003-1.030) 05/25/18 09:53 Urine Protein Negative mg/dL (NEGATIVE) 05/25/18 09:53 Urine Glucose (UA) Normal mg/dL (Normal) 05/25/18 09:53 Urine Ketones Negative mg/dL (NEGATIVE) 05/25/18 09:53 Urine Blood Negative (NEGATIVE) 05/25/18 09:53 Urine Nitrate Negative (NEGATIVE) 05/25/18 09:53 Urine Bilirubin Negative (NEGATIVE) 05/25/18 09:53 Urine Urobilinogen Normal mg/dL (0.2-1.0) 05/25/18 09:53 Ur Leukocyte Esterase Neg Jorge Luis/uL (Negative) 05/25/18 09:53 Urine WBC (Auto) 1 /hpf (0-5) 05/25/18 09:53 Urine RBC (Auto) < 1 /hpf (0-3) 05/25/18 09:53 Ur Squamous Epith Cells 2 /hpf (0-5) 05/25/18 09:53 Urine Bacteria Rare (<OCC) 05/25/18 09:53 Urine Eosinophils Negative (NEGATIVE) 05/24/18 22:29 Ur Random Creatinine 23.1 mg/dL 05/24/18 14:32 Ur Random Sodium 119 mmol/L 05/24/18 14:32 Urine Opiates Screen Negative (NEGATIVE) 05/23/18 15:07 Urine Methadone Screen Negative (NEGATIVE) 05/23/18 15:07 Ur Barbiturates Screen Negative (NEGATIVE) 05/23/18 15:07 Ur Phencyclidine Scrn Negative (NEGATIVE) 05/23/18 15:07 Ur Amphetamines Screen Negative (NEGATIVE) 05/23/18 15:07 U Benzodiazepines Scrn Positive (NEGATIVE) 05/23/18 15:07 U Oth Cocaine Metabols Negative (NEGATIVE) 05/23/18 15:07 U Cannabinoids Screen Negative (NEGATIVE) 05/23/18 15:07 Alcohol, Quantitative < 10 mg/dl (0-10) 05/23/18 14:57 Rheumatoid Arth Interp Positive (NEGATIVE) H 05/25/18 13:43 AMY 6 Profile Positive (NEGATIVE) H 05/25/18 13:43 AMY Titer 1:320 H 05/25/18 13:43 AMY Pattern Homogenous H 05/25/18 13:43 Hepatitis A IgM Ab Negative (NEGATIVE) 05/25/18 13:43 Hep Bs Antigen Negative (NEGATIVE) 05/25/18 13:43 Hep B Core IgM Ab Negative (NEGATIVE) 05/25/18 13:43 Hepatitis C Antibody Negative (NEGATIVE) 05/25/18 13:43 - Hospital Course Hospital Course: PT seen and examined, is stable for discharge, Patient refused to see [facility] for Arthritis and Right Ring Trigger finger She had high AMY 1;320 and a positive Rheumatoid Factor. She has low vitamin D for which she receives replacement. She has difficulty walking and uses a walker. She refused her EEG, CT Brain and Carotid Doppler. She still has High Blood Pressure. UTI is being treated. Discharge Exam - Head Exam Head Exam: ATRAUMATIC, NORMAL INSPECTION, NORMOCEPHALIC - Eye Exam Eye Exam: EOMI, Normal appearance, PERRL Pupil Exam: NORMAL ACCOMODATION, PERRL - ENT Exam ENT Exam: Mucous Membranes Moist - Respiratory Exam Respiratory Exam: Decreased Breath Sounds, NORMAL BREATHING PATTERN - Cardiovascular Exam Cardiovascular Exam: REGULAR RHYTHM, +S1, +S2 Discharge Plan - Discharge Medications Prescriptions: Ergocalciferol [Drisdol 50,000 Intl Units Cap] 1 cap PO Q7D #4 cap - Follow Up Plan Condition: FAIR Disposition: HOME/ ROUTINE Instructions: Weakness (ED) Additional Instructions: -FOLLOW UP WITH DR. HUTCHINSON IN THE OFFICE WITHIN 1 WEEK OF DISCHARGE---CALL THE OFFICE ON TUESDAY TO MAKE AN APPOINTMENT. -PER DR. ALCARAZ (NEUROLOGY) RECOMMENDATIONS: MAKE AN APPOINTMENT WITH DR. TINAJERO (BANKRUPTCY [facility]) IN HIS OFFICE FOR FURTHER EVALUATION OF RHEUMATOID ARTHRITIS. -CONTINUE TAKING YOUR XANAX AND METOPROLOL USUAL. -NEW PRESCRIPTION RECOMMENDED BY THE KIDNEY DOCTOR (DR. JIMENEZ): VITAMIN D SUPPLEMENT---TAKE 1 CAPSULE BY MOUTH ONCE A WEEK--TAKE EVERY TUESDAY (START ON 06/02/18). -SINCE YOU ARE REFUSING SUBACUTE REHAB AT THIS TIME, WE HAVE ARRANGED FOR HOME PHYSICAL THERAPY. THE COMPANY THAT YOU ARE REFERRED TO WILL CONTACT YOU EARLY NEXT WEEK TO SET UP A DAY/TIME FOR THEM TO SEE YOU IN YOUR HOME. -FOR FURTHER CONCERNS OR QUESTIONS, CONTACT DR. HUTCHINSON'S OFFICE. Referrals: North Tinajero MD [Staff Provider] - Bryan Jimenez MD [Staff Provider] - Matt Alcaraz MD [Staff Provider] - Gabriele Hutchinson MD [Staff Provider] -
== END 2018-05-27 14:30 | disposition home or self-care (01) | DRG 683 ==
LOC: C.ER 14:15 → OBSVTOIN 15:28 → C.9E 15:28 → C.3T 21:10
PROVIDERS: ADMIT Internal Medicine; ATTEND Internal Medicine
DX: N17.9 Acute kidney failure, unspecified (principal); N39.0 Urinary tract infection, site not specified; I16.0 Hypertensive urgency; E55.9 Vitamin D deficiency, unspecified; I12.9 Hypertensive chronic kidney disease with stage 1 through stage 4 chronic kidney disease, or unspecified chronic kidney disease; I48.91 Unspecified atrial fibrillation; N18.9 Chronic kidney disease, unspecified; F32.9 Major depressive disorder, single episode, unspecified; F41.9 Anxiety disorder, unspecified; J44.9 Chronic obstructive pulmonary disease, unspecified; M06.9 Rheumatoid arthritis, unspecified; M65.341 Trigger finger, right ring finger; R56.9 Unspecified convulsions; E78.00 Pure hypercholesterolemia, unspecified; E66.9 Obesity, unspecified; Z90.81 Acquired absence of spleen; Z87.440 Personal history of urinary (tract) infections; Z86.73 Personal history of transient ischemic attack (TIA), and cerebral infarction without residual deficits

== ENCOUNTER 2018-06-13 09:27 | Emergency (ER) | payer MEDICARE ==
[2018-06-13 09:28] VITALS: BMI 32.9
--- NOTE | 2018-06-13 10:35 | C.PDOC ---
History Of Present Illness 82 year old female patient with hx of HTN and anxiety presents to the ER with c/ o right pubic pain for x1 week. Patient reports her PCP is Dr. Hutchinson; she went to him and was given Cipro, which did not bring relief. Patient denies nausea, vomiting, diarrhea, fever and chills. Patient notes she had a surgery complication which left her with a mass on her left upper abdomen. Patient refuses to have it examined. Chief Complaint (Nursing): Abdominal Pain History Per: Patient History/Exam Limitations: no limitations Onset/Duration Of Symptoms: Days (x1 week) Location Of Pain/Discomfort: Other (right pubic pain) Past Medical History Reviewed: Historical Data, Nursing Documentation, Vital Signs Vital Signs: Last Vital Signs Temp 97.1 F L 06/13/18 12:49 Pulse 65 06/13/18 12:49 Resp 17 06/13/18 12:49 BP 170/82 H 06/13/18 12:49 Pulse Ox 96 06/13/18 12:55 - Medical History PMH: Anxiety, Arthritis, Atrial Fibrillation, Cardia Arrhythmia, COPD, Depression, Diverticulitis, Gastritis, HTN, Hypercholesterolemia, Chronic Kidney Disease Surgical History: Hernia Repair - [facility] Procedures APPLICATION OF SPLINT (09/06/13) VACCINATION NEC (11/20/14) Family History: States: Unknown Family Hx - Social History Hx Tobacco Use: No Hx Alcohol Use: No Hx Substance Use: No - Immunization History Hx Tetanus Toxoid Vaccination: No Hx Influenza Vaccination: Yes Hx Pneumococcal Vaccination: No Review Of Systems Except As Marked, All Systems Reviewed And Found Negative. Constitutional: Negative for: Fever, Chills Gastrointestinal: Positive for: Abdominal Pain (right pubic pain). Negative for : Nausea, Vomiting, Diarrhea Physical Exam - Physical Exam Appears: Non-toxic, No Acute Distress Skin: Normal Color, Warm, Dry Head: Atraumatic, Normacephalic Eye(s): bilateral: Normal Inspection Oral Mucosa: Moist Throat: Normal Neck: Normal ROM, Supple Chest: Symmetrical, No Deformity Cardiovascular: Rhythm Regular Respiratory: Normal Breath Sounds Gastrointestinal/Abdominal: Soft, Tenderness (RLQ ) Extremity: Normal ROM (x4) Neurological/Psych: Oriented x3, Normal Speech Gait: Steady ED Course And Treatment - Laboratory Results Result Diagrams: 06/13/18 11:23 08/21/18 11:23 O2 Sat by Pulse Oximetry: 96 (RA) Pulse Ox Interpretation: Normal - CT Scan/US abd & pelvis Other Rad Studies (CT/US): Read By Radiologist, Radiology Report Reviewed CT/US Interpretation: Accession No. : [id number]. Patient Name / ID : MATT COSME / [id number]. Exam Date : 06/13/2018 10:56:16 ( Approved ). Study Comment : Sex / Age : F / [id number]. Creator : Bobbi Antoine. Dictator : Rosanna John MD. Closing Machine Operator : [employer]ade Repair Technician : Rosanna John MD. Approver2 : Report Date : 06/13/2018 11:25:44. My Comment : . PROCEDURE: CT Abdomen and Pelvis without Oral or IV contrast. HISTORY: right lower abdominal pain. COMPARISON: CT abdomen and pelvis with IV contrast performed 10/18/16. TECHNIQUE: Contiguous axial images of the abdomen and pelvis. No oral or IV contrast administered. Coronal and Sagittal reformats generated and reviewed. Radiation dose: Total exam DLP = 1084.07 mGy-cm. This CT exam was performed using one or more of the following dose reduction techniques: Automated exposure control, adjustment of the mA and/or kV according to patient size, and/or use of iterative reconstruction technique. FINDINGS: There is limited evaluation of the solid organs without the administration of IV contrast. LOWER THORAX: Bibasilar atelectasis. No visible pleural effusion or pneumothorax. Partially imaged cardiomegaly. LIVER: Hypoattenuation of the liver compatible with hepatic steatosis. Calcification or surgical clips adjacent the undersurface of the liver. GALLBLADDER AND BILE DUCTS: Unremarkable. PANCREAS: Fatty atrophy. SPLEEN: Absent. ADRENALS: Unremarkable. 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 No obstructing bilateral renal calculi. Multiple bilateral renal cysts. Additional too small to characterize renal hypodensities. BLADDER: The urinary bladder appears unremarkable. REPRODUCTIVE: Uterus is present. APPENDIX: The appendix appears within normal limits of caliber. BOWEL: The stomach is nondistended. Lack of oral contrast limits evaluation for bowel pathology. The bowel loops appear within normal limits of caliber without evidence of intestinal obstruction. Large left bowel containing abdominal wall hernia. Diverticulosis without CT evidence of acute diverticulitis. Moderate constipation. PERITONEUM : No significant free fluid. No definite free air. LYMPH NODES: No bulky lymphadenopathy identified. VASCULATURE: No aortic aneurysm. Atherosclerotic calcifications. BONES: Extensive multilevel degenerative changes. OTHER FINDINGS: None. IMPRESSION: Moderate constipation. Large left bowel containing abdominal wall hernia without evidence of bowel obstruction. Diverticulosis without CT evidence of acute diverticulitis. Absent spleen. Correlate with surgical history. 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 Multiple bilateral renal cysts with the largest located in the right lower pole. Additional too small to characterize renal hypodensities. Additional findings as discussed above. Medical Decision Making Medical Decision Making: Impression: right pubic pain with UTI. Appendicitis is not likely. Plans: -- CT abdomen and pelvis -- blood work -- Tylenol -- UCx -- UA Lab results: (-) for UTI. CT shows constipation. Reassess: Patient is resting comfortably. Tolerating PO. Patient will be discharged home with prescription for constipation and anxiety. Disposition - Disposition Referrals: [facility] [place] [facility] [place] [facility] [Outside] [facility] [Outside] Disposition: HOME/ ROUTINE Disposition Time: 13:31 Condition: GOOD Prescriptions: Docusate Sodium [Colace] 100 mg PO Q12 7 Days #14 capsule Instructions: Constipation in Adults Forms: [email or web address] (Maltese) - Clinical Impression Clinical Impression: Constipation - Scribe Statement The provider has reviewed the documentation as recorded by the Scribe Negro Do Provider Attestation: All medical record entries made by the Scribe were at my direction and personally dictated by me. I have reviewed the chart and agree that the record accurately reflects my personal performance of the history, physical exam, medical decision making, and the department course for this patient. I have also personally directed, reviewed, and agree with the discharge instructions and disposition.
[2018-06-13 11:27] LABS: BASO % 0.4 % (0.0-2.0); EOS # 0.5 K/uL (0.0-0.7); EOS % 6.1 % (0.0-4.0); LYMPH # 1.8 K/uL (1.0-4.3); LYMPH % 22.8 % (20.0-40.0); MEAN CELL VOLUME 92.6 fL (81.0-99.0); MEAN CORPUSCULAR HEMOGLOBIN 31.3 pg (27.0-31.0); MEAN CORPUSCULAR HGB CONC 33.8 g/dL (33.0-37.0); MONO # 1.1 K/uL (0.0-0.8); MONO % 13.1 % (0.0-10.0); NEUT # 4.7 K/uL (1.8-7.0); NEUT % 57.6 % (50.0-75.0); NRBC % 0.1 % (0.0-2.0); RBC 4.13 Mil/uL (3.80-5.20); RED CELL DISTRIBUTION WIDTH 14.2 % (11.5-14.5); WHITE BLOOD COUNT 8.1 K/uL (4.8-10.8)
[2018-06-13 11:33] VITALS: RESP 17
[2018-06-13 11:45] LABS: ALB/GLOB RATIO 0.9 (1.0-2.1); ALBUMIN 3.3 g/dL (3.5-5.0); CALCIUM 9.4 mg/dl (8.6-10.4)
--- NOTE | 2018-06-13 11:58 | CT ---
PROCEDURE: CT Abdomen and Pelvis without Oral or IV contrast. HISTORY: right lower abdominal pain COMPARISON: CT abdomen and pelvis with IV contrast performed 10/18/16 TECHNIQUE: Contiguous axial images of the abdomen and pelvis. No oral or IV contrast administered. Coronal and Sagittal reformats generated and reviewed. Radiation dose: Total exam DLP = 1084.07 mGy-cm. This CT exam was performed using one or more of the following dose reduction techniques: Automated exposure control, adjustment of the mA and/or kV according to patient size, and/or use of iterative reconstruction technique. FINDINGS: There is limited evaluation of the solid organs without the administration of IV contrast. LOWER THORAX: Bibasilar atelectasis. No visible pleural effusion or pneumothorax. Partially imaged cardiomegaly. LIVER: Hypoattenuation of the liver compatible with hepatic steatosis. Calcification or surgical clips adjacent the undersurface of the liver. GALLBLADDER AND BILE DUCTS: Unremarkable. PANCREAS: Fatty atrophy. SPLEEN: Absent ADRENALS: Unremarkable. 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 No obstructing bilateral renal calculi. Multiple bilateral renal cysts. Additional too small to characterize renal hypodensities. BLADDER: The urinary bladder appears unremarkable. REPRODUCTIVE: Uterus is present. APPENDIX: The appendix appears within normal limits of caliber. BOWEL: The stomach is nondistended. Lack of oral contrast limits evaluation for bowel pathology. The bowel loops appear within normal limits of caliber without evidence of intestinal obstruction. Large left bowel containing abdominal wall hernia. Diverticulosis without CT evidence of acute diverticulitis. Moderate constipation. PERITONEUM: No significant free fluid. No definite free air. LYMPH NODES: No bulky lymphadenopathy identified. VASCULATURE: No aortic aneurysm. Atherosclerotic calcifications. BONES: Extensive multilevel degenerative changes. OTHER FINDINGS: None. IMPRESSION: Moderate constipation. Large left bowel containing abdominal wall hernia without evidence of bowel obstruction. Diverticulosis without CT evidence of acute diverticulitis. Absent spleen. Correlate with surgical history. 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 Multiple bilateral renal cysts with the largest located in the right lower pole. Additional too small to characterize renal hypodensities. Additional findings as discussed above.
[2018-06-13 12:17] LABS: URINE BILIRUBIN NEGATIVE (NEGATIVE); URINE BLOOD NEGATIVE (NEGATIVE); URINE CLARITY Clear (Clear); URINE COLOR YELLOW (YELLOW); URINE GLUCOSE (UA) NEGATIVE (Normal); URINE LEUKOCYTE ESTERASE NEGATIVE Leu/uL (Negative); URINE PROTEIN NEGATIVE (NEGATIVE); URINE UROBILINOGEN 0.2 mg/dL (0.2-1.0)
[2018-06-13 12:54] VITALS: BP 170/82; PULSE 65; TEMP 97.1
[2018-06-13 12:56] VITALS: O2SAT 96
== END 2018-06-13 13:32 | disposition home or self-care (01) ==
LOC: C.ER 09:27
DX: K59.00 Constipation, unspecified (principal)

== ENCOUNTER 2018-06-28 10:01 | Emergency (ER) | payer MEDICARE ==
[2018-06-28 10:02] VITALS: BMI 32.9
[2018-06-28] MEDS ORDERED: Sodium Chloride 0.9% 1,000 ML IV SCH (11:00)
[2018-06-28 11:15] LABS: BASO % 0.2 % (0.0-2.0); EOS # 0.1 K/uL (0.0-0.7); EOS % 1.4 % (0.0-4.0); HEMOGLOBIN 13.1 g/dL (11.0-16.0); LYMPH # 1.8 K/uL (1.0-4.3); LYMPH % 20.2 % (20.0-40.0); MEAN CELL VOLUME 91.5 fL (81.0-99.0); MEAN CORPUSCULAR HEMOGLOBIN 30.6 pg (27.0-31.0); MEAN CORPUSCULAR HGB CONC 33.5 g/dL (33.0-37.0); MEAN PLATELET VOLUME 8.9 fL (7.2-11.7); MONO # 1.1 K/uL (0.0-0.8); MONO % 12.5 % (0.0-10.0); NEUT # 5.7 K/uL (1.8-7.0); NEUT % 65.7 % (50.0-75.0); RBC 4.29 Mil/uL (3.80-5.20); RED CELL DISTRIBUTION WIDTH 14.4 % (11.5-14.5); WHITE BLOOD COUNT 8.7 K/uL (4.8-10.8)
[2018-06-28 11:33] VITALS: TEMP 99
[2018-06-28 11:36] LABS: ALB/GLOB RATIO 0.9 (1.0-2.1); ALBUMIN 3.3 g/dL (3.5-5.0); ALT/SGPT 17 U/L (9-52); AST/SGOT 18 U/L (14-36); BLOOD UREA NITROGEN 20 mg/dL (7-17); CALCIUM 9.7 mg/dl (8.6-10.4); GFR NON-AFRICAN AMERICAN > 60
[2018-06-28] MEDS ORDERED: Sodium Chloride 0.9% 1,000 ML ONE (11:38)
--- NOTE | 2018-06-28 11:39 | RAD ---
Date of service: 06/28/2018 PROCEDURE: CHEST RADIOGRAPH, 1 VIEW HISTORY: chest pain COMPARISON: Portable chest 05/23/2018. FINDINGS: LUNGS: No active pulmonary disease. Improved inspiratory volume noted. PLEURA: No pneumothorax or pleural fluid seen. CARDIOVASCULAR: Stable mild cardiomegaly. No pulmonary vascular congestion. OSSEOUS STRUCTURES: No significant abnormalities. VISUALIZED UPPER ABDOMEN: Normal. OTHER FINDINGS: None. IMPRESSION: Stable cardiomegaly. No interval acute cardiopulmonary disease appreciated.
[2018-06-28 11:40] LABS: B-TYPE NATRIURETIC PEPTIDE 2680 pg/mL (0-900)
[2018-06-28 11:42] LABS: SQUAMOUS EPITHIAL 2 /hpf (0-5); URINE BACTERIA OCC (<OCC); URINE BILIRUBIN NEGATIVE (NEGATIVE); URINE BLOOD 1+ (NEGATIVE); URINE CLARITY Clear (Clear); URINE COLOR Yellow (YELLOW); URINE GLUCOSE (UA) NORMAL (Normal); URINE HYALINE CAST 0-2 /lpf (0-2); URINE LEUKOCYTE ESTERASE TRACE Leu/uL (Negative); URINE PROTEIN 1+ mg/dL (NEGATIVE); URINE UROBILINOGEN NORMAL mg/dL (0.2-1.0)
--- NOTE | 2018-06-28 12:17 | C.PDOC ---
History Of Present Illness 82-year-old female, presents to the emergency department with complaints of feeling dizzy since this morning. Patient denies any nausea/vomiting. States when she gets up, she has to sit back down due to the dizziness. She also notes mild associated neck pain. Denies any fever or chills. Time Seen by Provider: 06/28/18 10:36 Chief Complaint (Nursing): Dizziness/Lightheaded History Per: Patient History/Exam Limitations: no limitations Past Medical History Reviewed: Historical Data, Nursing Documentation, Vital Signs Vital Signs: Last Vital Signs Temp 99.0 F 06/28/18 11:32 Pulse 74 06/28/18 12:45 Resp 16 06/28/18 12:45 BP 129/73 06/28/18 12:45 Pulse Ox 100 06/28/18 13:46 - Medical History PMH: Anxiety, Arthritis, Atrial Fibrillation, Cardia Arrhythmia, COPD, Depression, Diverticulitis, Gastritis, HTN, Hypercholesterolemia, Chronic Kidney Disease Surgical History: Hernia Repair - [facility] Procedures APPLICATION OF SPLINT (09/06/13) VACCINATION NEC (11/20/14) Family History: States: No Known Family Hx - Social History Hx Tobacco Use: No Hx Alcohol Use: No Hx Substance Use: No - Immunization History Hx Tetanus Toxoid Vaccination: No Hx Influenza Vaccination: Yes (2016) Hx Pneumococcal Vaccination: (unk) Review Of Systems Constitutional: Negative for: Fever Gastrointestinal: Negative for: Nausea, Vomiting, Abdominal Pain Musculoskeletal: Positive for: Neck Pain Neurological: Positive for: Dizziness Physical Exam - Physical Exam Appears: Non-toxic, No Acute Distress, Unkempt, Other (morbidly obese) Skin: Normal Color, Warm, Dry, No Rash Head: Atraumatic, Normacephalic Eye(s): bilateral: Normal Inspection Nose: Normal Oral Mucosa: Moist Lips: Normal Appearing Neck: Normal ROM Chest: Symmetrical Cardiovascular: Rhythm Regular, No Murmur Respiratory: Normal Breath Sounds, No Accessory Muscle Use Gastrointestinal/Abdominal: Other (Mass to left abdominal wall x10 years) Extremity: Normal ROM, No Deformity Neurological/Psych: Oriented x3, Normal Speech ED Course And Treatment - Laboratory Results Result Diagrams: 06/28/18 11:10 06/28/18 11:10 ECG: Interpreted By Me, Viewed By Me ECG Rhythm: Sinus Rhythm ECG Interpretation: No Acute Changes Rate From EC O2 Sat by Pulse Oximetry: 100 (RA) Pulse Ox Interpretation: Normal Medical Decision Making Medical Decision Making: Plan: * Bloodwork * IVF, Meclizine, Xanax * UA * Reassess and Disposition Family at bedside. Pt is refusing admission or other care, states she wishes to be dischagred and f/u outpatient with PMD Dr Hutchinson. Disposition - Disposition Referrals: Gabriele Hutchinson MD [Staff Provider] - Disposition: HOME/ ROUTINE Disposition Time: 13:50 Condition: STABLE Additional Instructions: follow up with DR. Hutchinson today call office to make an appointment you do not wish to stay in hospital and have further workup follow up with your doctor you are assuming responsibility of your care and do not hold myself or staff responsible for potential negative outcome return to ER at any time. Instructions: Vertigo (a Type of Dizziness) (DC) Forms: [facility] (Setsw[place]), General Discharge Instructions - Clinical Impression Clinical Impression: Dizziness - Scribe Statement The provider has reviewed the documentation as recorded by the Scribe (Jesusita Almonte) All medical record entries made by the Scribe were at my direction and personally dictated by me. I have reviewed the chart and agree that the record accurately reflects my personal performance of the history, physical exam, medical decision making, and the department course for this patient. I have also personally directed, reviewed, and agree with the discharge instructions and disposition.
[2018-06-28 12:46] VITALS: RESP 16
--- NOTE | 2018-06-28 12:50 | CT ---
Date of service: 06/28/2018 PROCEDURE: CT HEAD WITHOUT CONTRAST. HISTORY: dizziness COMPARISON: None available. TECHNIQUE: Axial computed tomography images were obtained through the head/brain without intravenous contrast. Radiation dose: Total exam DLP = 893.71 mGy-cm. This CT exam was performed using one or more of the following dose reduction techniques: Automated exposure control, adjustment of the mA and/or kV according to patient size, and/or use of iterative reconstruction technique. FINDINGS: Streak artifact obscures evaluation of the skullbase. HEMORRHAGE: No intracranial hemorrhage. BRAIN: Diffuse atrophy with prominence of the ventricles and sulci noted. No mass effect or edema. Dense intracranial atherosclerosis. Scattered periventricular and subcortical white matter hypodensities, which are nonspecific, but often seen with chronic microvascular ischemic disease. Please note that MRI with diffusion imaging is more sensitive in the detection of acute ischemic event. VENTRICLES: No hydrocephalus. CALVARIUM: Unremarkable. PARANASAL SINUSES: Unremarkable as visualized. No significant inflammatory changes. MASTOID AIR CELLS: Under aeration of the left greater than right mastoid air cells; correlate clinically for history of chronic mastoiditis. OTHER FINDINGS: None. IMPRESSION: Generalized atrophy. Nonspecific white matter changes. Under aeration of the left greater than right mastoid air cells; correlate clinically for history of chronic mastoiditis.
[2018-06-28 16:01] VITALS: BP 156/87; PULSE 66; O2SAT 97
--- NOTE | 2018-06-29 14:36 | CARD ---
APPROVED REPORT Date of service: 06/28/2018 EKG Measurement Heart [id number] [id number] <Conclusion> Normal sinus rhythm Minimal voltage criteria for LVH, may be normal variant Borderline ECG
== END 2018-06-28 16:13 | disposition home or self-care (01) ==
LOC: C.ER 10:01
DX: R42 Dizziness and giddiness (principal)
CPT/HCPCS: 70450; 71045; 80053; 81001; 82948; 83880; 84484; 85025; 87086; 87181; 93005; 96360; 96361; 99285; J7030

== ENCOUNTER 2018-07-26 00:57 | Emergency (ER) | payer MEDICARE ==
[2018-07-26 00:57] VITALS: BMI 32.9
[2018-07-26] MEDS ORDERED: Sodium Chloride 0.9% 1,000 ML ONE (01:40)
[2018-07-26] MEDS: Sodium Chloride 0.9% 1,000 ML IV ONE (01:49)
[2018-07-26 01:52] LABS: BASO # 0.1 K/uL (0.0-0.2); BASO % 1.1 % (0.0-2.0); EOS # 0.5 K/uL (0.0-0.7); HEMOGLOBIN 12.1 g/dL (11.0-16.0); LYMPH % 30.1 % (20.0-40.0); MEAN CORPUSCULAR HEMOGLOBIN 29.4 pg (27.0-31.0); MEAN CORPUSCULAR HGB CONC 32.7 g/dL (33.0-37.0); MEAN PLATELET VOLUME 9.1 fL (7.2-11.7); MONO # 1.4 K/uL (0.0-0.8); MONO % 14.2 % (0.0-10.0); NEUT % 49.6 % (50.0-75.0); NRBC % 0.1 % (0.0-2.0); RBC 4.12 Mil/uL (3.80-5.20); RED CELL DISTRIBUTION WIDTH 14.3 % (11.5-14.5)
[2018-07-26 02:13] LABS: BLOOD UREA NITROGEN 24 mg/dL (7-17); CALCIUM 9.5 mg/dl (8.6-10.4); GFR NON-AFRICAN AMERICAN > 60; LIPASE 30 U/L (23-300)
[2018-07-26 02:15] LABS: ALB/GLOB RATIO 0.8 (1.0-2.1); ALBUMIN 3.3 g/dL (3.5-5.0); ALT/SGPT 16 U/L (9-52); AST/SGOT 23 U/L (14-36)
[2018-07-26] MEDS ORDERED: Iodixanol 320 MG/ML 100 ML BOTTLE IV ONE (02:28)
[2018-07-26 05:13] VITALS: BP 155/76; PULSE 70; RESP 20; TEMP 98.4; O2SAT 96
--- NOTE | 2018-07-26 05:29 | C.PDOC ---
History Of Present Illness 82 year old female presents to the ER with a complaint of left sided abdominal pain for the past 1 day. Denies nausea, vomiting, or blood in the urine/stool. Patient reports she has been eating well. She has a Hx of abdominal surgeries and notes she has felt better since arriving to the ER. Time Seen by Provider: 07/26/18 01:20 Chief Complaint (Nursing): Abdominal Pain History Per: Patient History/Exam Limitations: no limitations Onset/Duration Of Symptoms: Days (1) Current Symptoms Are (Timing): Better Location Of Pain/Discomfort: Diffuse Radiation Of Pain To:: None Quality Of Discomfort: Unable To Describe Associated Symptoms: denies: Nausea, Vomiting, Loss Of Appetite, Urinary Symptoms, Other (Blood in stool) Exacerbating Factors: None Alleviating Factors: None Recent travel outside of the [place]: No Abnormal Vaginal Bleeding: No Past Medical History Reviewed: Historical Data, Nursing Documentation, Vital Signs Vital Signs: Last Vital Signs Temp 98.4 F 07/26/18 05:12 Pulse 70 07/26/18 05:12 Resp 20 07/26/18 05:12 BP 155/76 H 07/26/18 05:12 Pulse Ox 96 07/26/18 05:12 - Medical History PMH: Anxiety, Arthritis, Atrial Fibrillation, Cardia Arrhythmia, COPD, Depression, Diverticulitis, Gastritis, HTN, Hypercholesterolemia, Chronic Kidney Disease Surgical History: Hernia Repair - [facility] Procedures APPLICATION OF SPLINT (09/06/13) VACCINATION NEC (11/20/14) Family History: States: Unknown Family Hx - Social History Hx Tobacco Use: No Hx Alcohol Use: No Hx Substance Use: No - Immunization History Hx Tetanus Toxoid Vaccination: Yes Hx Influenza Vaccination: Yes Hx Pneumococcal Vaccination: Yes Review Of Systems Constitutional: Negative for: Fever, Chills Cardiovascular: Negative for: Chest Pain, Palpitations Respiratory: Negative for: Cough, Shortness of Breath Gastrointestinal: Positive for: Abdominal Pain. Negative for: Nausea, Vomiting, Other (Blood in the stool) Genitourinary: Negative for: Hematuria Neurological: Negative for: Weakness, Numbness Physical Exam - Physical Exam Appears: Non-toxic Skin: Normal Color, Warm, Dry Head: Atraumatic, Normacephalic Eye(s): bilateral: Normal Inspection Oral Mucosa: Moist Neck: Normal, Supple Chest: Symmetrical, No Tenderness Cardiovascular: Rhythm Regular Respiratory: Normal Breath Sounds, No Rales, No Rhonchi, No Wheezing Gastrointestinal/Abdominal: Soft, Tenderness (Diffuse), No Guarding, No Rebound, Other (Old surgical scars to left side) Back: No CVA Tenderness Extremity: Normal ROM (x4) Neurological/Psych: Oriented x3, Normal Speech ED Course And Treatment - Laboratory Results Result Diagrams: 07/26/18 01:50 07/26/18 01:50 O2 Sat by Pulse Oximetry: 96 (Room air) Pulse Ox Interpretation: Normal Progress Note: CT abd/pel, blood work, and urinalysis ordered. Zofran, toradol, and IV fluids administered. Disposition - Disposition Referrals: Gabriele Hutchinson MD [Staff Provider] - Disposition: HOME/ ROUTINE Disposition Time: 04:00 Condition: GOOD Additional Instructions: CARMELINA GUTIERREZ, thank you for letting us take care of you today. Your provider was Elliot Ernandez DO and you were treated for ABD PAIN. The emergency medical care you received today was directed at your acute symptoms. If you were prescribed any medication, please fill it and take as directed. It may take several days for your symptoms to resolve. Return to the Emergency Department if your symptoms worsen, do not improve, or if you have any other problems. Please contact your doctor or call one of the physicians/clinics you have been referred to that are listed on the Patient Visit Information form that is included in your discharge packet. Bring any paperwork you were given at discharge with you along with any medications you are taking to your follow up visit. Our treatment cannot replace ongoing medical care by a primary care prov ider outside of the emergency department. Thank you for allowing the [facility] team to be part of your care today. Follow up with your primary care doctor in 2-3 days for re-evaluation and further management. Instructions: Acute Abdomen (Belly Pain), Adult (DC) Forms: [employer] (Niuean) - Clinical Impression Clinical Impression: Abdominal pain - Scribe Statement The provider has reviewed the documentation as recorded by the Scribfestus Lara All medical record entries made by the Scribe were at my direction and personally dictated by me. I have reviewed the chart and agree that the record accurately reflects my personal performance of the history, physical exam, medical decision making, and the department course for this patient. I have also personally directed, reviewed, and agree with the discharge instructions and disposition.
--- NOTE | 2018-07-26 08:56 | CT ---
Date of service: 07/26/2018 PROCEDURE: CT Abdomen and Pelvis with contrast HISTORY: left-sided abd pain - h/o "major surgery" COMPARISON: CT abdomen pelvis without IV contrast performed 06/13/18 TECHNIQUE: Contrast dose: 100 mL Visipaque IV Radiation dose: Total exam DLP = 1065.76 mGy-cm. This CT exam was performed using one or more of the following dose reduction techniques: Automated exposure control, adjustment of the mA and/or kV according to patient size, and/or use of iterative reconstruction technique. FINDINGS: LOWER THORAX: Bibasilar atelectasis. No visible pleural effusion or pneumothorax. Partially imaged cardiomegaly. Coronary artery calcifications. LIVER: Unremarkable. GALLBLADDER AND BILE DUCTS: Unremarkable. PANCREAS: Fatty atrophy. SPLEEN: Absent. ADRENALS: Unremarkable. KIDNEYS AND URETERS: Atrophic kidneys. The kidneys enhance symmetrically. No hydronephrosis or obstructing calculus identified. Right renal cysts. Too small to characterize left renal hypodensities; statistically likely cysts. 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 No aortic aneurysm. BOWEL: Small hiatal hernia. Surgical clips noted in the epigastric region. Stomach is nondistended. Lack of oral contrast limits evaluation for bowel pathology. Bowel loops appear within normal limits of caliber without evidence of obstruction. APPENDIX: The appendix appears within normal limits of caliber. No secondary signs of acute appendicitis. PERITONEUM: No significant free fluid. No definite free air. LYMPH NODES: No bulky adenopathy identified. BLADDER: Unremarkable. REPRODUCTIVE: The uterus is present. 1.6 cm cystic lesion in the left adnexal region, likely ovarian in etiology. BONES: Deformity of several posterior left ribs. OTHER FINDINGS: Ventral left abdominal wall hernia containing nonobstructive bowel. IMPRESSION: Calcified aneurysm, distal left renal artery. Right renal cyst. Too small to characterize left renal hypodensities; statistically likely cysts. Ventral left abdominal wall hernia containing nonobstructive bowel. Suspected 1.6 cm left ovarian cystic lesion. Pelvic ultrasound may be considered for further evaluation. Additional findings as above. Preliminary impression was provided by Adisn.
--- NOTE | 2018-07-27 23:10 | CARD ---
APPROVED REPORT Date of service: 07/26/2018 EKG Measurement Heart [id number] [id number] <Conclusion> Normal sinus rhythm Moderate voltage criteria for LVH, may be normal variant Borderline ECG
== END 2018-07-26 05:55 | disposition home or self-care (01) ==
LOC: C.ER 00:57
DX: R10.9 Unspecified abdominal pain (principal)
CPT/HCPCS: 74177; 80053; 83690; 85025; 93005; 96374; 96375; 99284; J1885; J2405; J7030; Q9967

== ENCOUNTER 2018-08-01 22:19 | Inpatient (IN) | payer MEDICARE ==
[2018-08-01 22:19] VITALS: BMI 32.9
--- NOTE | 2018-08-01 22:46 | C.PDOC ---
History Of Present Illness 82 y/o female presents to the ED complaining of feeling anxious throughout the day, worsened tonight. Patient reports history of anxiety, and admits she took her last Xanax this morning. This evening she developed palpitations, prompting son to call 911. Patient denies any chest pain. States she has had similar symptoms in the past, which occurred with anxiety attacks. Patient also admits she feels short of breath with exertion, but notes this is not unusual for her. Otherwise she denies any fever, chills, cough, or other associated symptoms. Also denies SI/HI. Time Seen by Provider: 08/01/18 22:34 Chief Complaint (Nursing): Anxiety History Per: Patient History/Exam Limitations: no limitations Onset/Duration Of Symptoms: Hrs Current Symptoms Are (Timing): Still Present Suicide/Self Injury Attempted (Context): None Associated Symptoms: Anxiety. denies: Suicidal Thoughts, Suicidal Plan Involuntary Hold By: None Past Medical History Reviewed: Historical Data, Nursing Documentation, Vital Signs Vital Signs: Last Vital Signs Temp 97.6 F 08/01/18 22:25 Pulse 132 H 08/01/18 22:25 Resp 20 08/01/18 22:25 BP 127/94 H 08/01/18 22:25 Pulse Ox 95 08/01/18 22:25 - Medical History PMH: Anxiety, Arthritis, Atrial Fibrillation, Cardia Arrhythmia, COPD, Depression, Diverticulitis, Gastritis, HTN, Hypercholesterolemia, Chronic Kidney Disease Surgical History: Hernia Repair - [facility] Procedures APPLICATION OF SPLINT (09/06/13) VACCINATION NEC (11/20/14) Family History: States: Unknown Family Hx - Social History Hx Tobacco Use: No Hx Alcohol Use: No Hx Substance Use: No - Immunization History Hx Tetanus Toxoid Vaccination: Yes Hx Influenza Vaccination: Yes Hx Pneumococcal Vaccination: Yes Review Of Systems Constitutional: Negative for: Fever, Chills Eyes: Negative for: Vision Change Cardiovascular: Positive for: Palpitations. Negative for: Chest Pain Respiratory: Positive for: SOB with Excertion (chronic per patient). Negative for: Cough, Shortness of Breath Gastrointestinal: Negative for: Nausea, Vomiting Neurological: Negative for: Headache, Dizziness Psych: Positive for: Anxiety. Negative for: Suicidal ideation (or homicidal ideation) Physical Exam - Physical Exam Appears: Non-toxic, No Acute Distress, Other (Appears anxious) Skin: Normal Color, Warm, Dry Head: Atraumatic, Normacephalic Eye(s): bilateral: Normal Inspection Neck: Normal ROM, Supple Chest: Symmetrical Cardiovascular: Rhythm Regular (but tachy), Other (S1, S2 are wnl) Respiratory: No Accessory Muscle Use, Rales (bilateral), No Rhonchi, No Wheezing Gastrointestinal/Abdominal: Soft, Tenderness (+ epigastric tenderness, which patient states is chronic), No Guarding, No Rebound Back: No CVA Tenderness Extremity: Bilateral: Atraumatic, Normal Color And Temperature, Normal ROM Neurological/Psych: Oriented x3, Normal Speech ED Course And Treatment - Laboratory Results Result Diagrams: 08/01/18 22:58 08/01/18 22:58 Lab Interpretation: Abnormal (d dimer >5250, Thyroid functions all slightly elevated, Normal CBC) ECG: Interpreted By Me ECG Rhythm: Sinus Tachycardia (with LVH), Nonspecific Changes ECG Interpretation: Abnormal O2 Sat by Pulse Oximetry: 95 (RA) Pulse Ox Interpretation: Normal - Radiology CXR: Interpreted by Me CXR Interpretation: Yes: No Acute Disease Reevaluation Time: 00:22 Reassessment Condition: Unchanged - Physician Consult Information Time Consulting Physician Contacted: 00:22 Physician Contacted: Gabriele Hutchinson Outcome Of Conversation: He knows the patient well and will admit on his service for management of tachycardia. Medical Decision Making Medical Decision Making: Initial Plan: Ordered blood work including trop, d dimer, and thyroid panel. EKG, CXR ordered and reviewed. Administered 0.5 mg Ativan IVP. Disposition - Disposition Disposition: HOSPITALIZED Disposition Time: 00:24 Condition: FAIR - POA Present On Arrival: None - Clinical Impression Clinical Impression: SVT (supraventricular tachycardia) - Scribe Statement The provider has reviewed the documentation as recorded by the Scribe (Zeny Mcclendon) Provider Attestation: All medical record entries made by the Scribe were at my direction and pers onally dictated by me. I have reviewed the chart and agree that the record accurately reflects my personal performance of the history, physical exam, medical decision making, and the department course for this patient. I have also personally directed, reviewed, and agree with the discharge instructions and disposition.
[2018-08-01 23:03] LABS: BASO # 0.1 K/uL (0.0-0.2); BASO % 1.2 % (0.0-2.0); EOS # 0.5 K/uL (0.0-0.7); EOS % 4.4 % (0.0-4.0); HEMOGLOBIN 13.5 g/dL (11.0-16.0); LYMPH # 4.2 K/uL (1.0-4.3); LYMPH % 39.4 % (20.0-40.0); MEAN CELL VOLUME 90.6 fL (81.0-99.0); MEAN CORPUSCULAR HEMOGLOBIN 30.3 pg (27.0-31.0); MEAN CORPUSCULAR HGB CONC 33.5 g/dL (33.0-37.0); MEAN PLATELET VOLUME 9.1 fL (7.2-11.7); MONO # 1.5 K/uL (0.0-0.8); MONO % 14.5 % (0.0-10.0); NEUT # 4.3 K/uL (1.8-7.0); NEUT % 40.5 % (50.0-75.0); NRBC % 0.1 % (0.0-2.0); RBC 4.46 Mil/uL (3.80-5.20); RED CELL DISTRIBUTION WIDTH 14.3 % (11.5-14.5); WHITE BLOOD COUNT 10.6 K/uL (4.8-10.8)
[2018-08-01 23:30] LABS: ALB/GLOB RATIO 0.9 (1.0-2.1); ALBUMIN 3.3 g/dL (3.5-5.0); ALT/SGPT 14 U/L (9-52); AST/SGOT 17 U/L (14-36); BLOOD UREA NITROGEN 18 mg/dL (7-17); CALCIUM 9.4 mg/dl (8.6-10.4); GFR NON-AFRICAN AMERICAN > 60
[2018-08-01 23:35] LABS: T4 12.3 ug/dL (5.5-11.0)
[2018-08-01 23:59] LABS: T3 UPTAKE 44.6 % (23.0-41.0)
[2018-08-02] MEDS ORDERED: Enoxaparin 60 mg Syringe SC STA (00:33)
[2018-08-02] MEDS ORDERED: Iodixanol 320 MG/ML 100 ML BOTTLE IV ONE (00:53)
[2018-08-02 02:59] VITALS: RESP 20
[2018-08-02 07:08] LABS: CK-MB 1.28 ng/mL (0.0-3.38); TROPONIN I 0.074 ng/mL (0.00-0.120)
[2018-08-02 07:34] VITALS: PULSE 66; TEMP 97.8; O2SAT 95
--- NOTE | 2018-08-02 08:28 | RAD ---
Chest x-ray single frontal view HISTORY: Palpitations. COMPARISON: 06/28/2018 Findings: Biapical pleural thickening with upper lobe granulomatous changes. Diffuse increased interstitial lung markings. Left hilar prominence. Enlarged ectatic aorta with calcification at the aortic knob. Cardiomegaly. Degenerative changes in the spine and shoulders. Question chronic deformity of the left proximal humerus. Impression: Biapical pleural thickening with upper lobe granulomatous changes. Diffuse increased interstitial lung markings. Left hilar prominence. Enlarged ectatic aorta with calcification at the aortic knob. Cardiomegaly. Degenerative changes in the spine and shoulders. Question chronic deformity of the left proximal humerus.
[2018-08-02] MEDS ORDERED: Enoxaparin 40 mg Syringe SC SCH (10:00)
[2018-08-02 10:10] VITALS: BP 153/83
[2018-08-02] MEDS ORDERED: Influenza Vaccine 60 MCG/0.5 ML SYR (3 yr & up) IM ONE (10:45)
--- NOTE | 2018-08-02 11:44 | CT ---
Date of service: 08/02/2018 PROCEDURE: CT Chest with contrast (Pulmonary Angiogram) HISTORY: tachycardia with d dimer >5000 COMPARISON: Not available TECHNIQUE: Axial computed tomography images were obtained of the chest in the pulmonary arterial phase of enhancement. Coronal and sagittal reformatted images were created and reviewed. Intravenous contrast dose: 100 mL Visipaque 320 Radiation dose: Total exam DLP = 457.00 mGy-cm. This CT exam was performed using one or more of the following dose reduction techniques: Automated exposure control, adjustment of the mA and/or kV according to patient size, and/or use of iterative reconstruction technique. FINDINGS: PULMONARY ARTERIES: Technically limited examination. Very suboptimal enhancement of pulmonary arteries. Unable to evaluate segmental/subsegmental pulmonary artery branches. No large central pulmonary embolus in the main or lobar pulmonary arteries. AORTA: No acute findings. No thoracic aortic aneurysm. LUNGS: No infiltrate. Minimal dependent lower lobe subsegmental atelectasis. No pulmonary mass. PLEURAL SPACES: Unremarkable. No effusion or pneumothorax. HEART: Mild cardiomegaly. Coronary arterial calcification. Trace pericardial effusion. LYMPH NODES: Shotty subcentimeter mediastinal nodes with a solitary minimally enlarged right paratracheal lymph node up to 12 mm short axis. BONES, CHEST WALL: Possible prior left thoracotomy with deformity of multiple left ribs, including left 6th through 9th ribs posterior laterally. No evidence of acute fracture. OTHER FINDINGS: 11 mm nodule in left lobe of thyroid. Recommend correlation with thyroid ultrasound examination. Large left parasagittal ventral hernia containing loops of what is likely colon and small bowel. Small hiatal hernia noted. IMPRESSION: Technically limited examination. Unable to exclude pulmonary embolism in segmental and subsegmental pulmonary artery branches on the basis of this examination. Minor findings as above. The preliminary findings for this examination were reported by [facility] at 2:48 a.m. on 08/02/2018. There is discordance of this report with the preliminary findings. Report was read as no evidence of pulmonary embolism or arterial dissection. Examination was technically suboptimal and unable to reach that conclusion for segmental and subsegmental pulmonary artery branches as described above. Findings were discussed by telephone with nurse practitioner Neeru Bansal at 11:35 a.m. on 08/02/2018.
--- NOTE | 2018-08-02 11:52 | CP.PCM.PN ---
Subjective - Date & Time of Evaluation Date of Evaluation: 08/02/18 Time of Evaluation: 10:25 - Subjective Subjective: ABATEMENT WORKER NOTES Patient seen today , denies any chest pain, sob , states her HR high secondary to anxiety .Patient wants to sign out AMA . son at bedside Radiologist Dr. Dillon reported CT done last night report The preliminary findings for this examination were reported by [facility] Radiology at 2:48 a.m. on 08/02/2018. There is discordance of this report with the preliminary findings. Report was read as no evidence of pulmonary embolism or arterial dissection. Examination was technically suboptimal and unable to reach that conclusion for segmental and subsegmental pulmonary artery branches as described above. Patient signed out AMA before the report D/W Dr. Hutchinson Objective - Vital Signs/Intake and Output Vital Signs (last 24 hours): Temp Pulse Resp BP Pulse Ox 97.8 F 66 20 153/83 H 95 08/02/18 07:00 08/02/18 08:10 08/02/18 07:00 08/02/18 10:09 08/02/18 07:00 Intake and Output: 08/02/18 08/02/18 06:59 18:59 Intake Total 150 Balance 150 - Labs Labs: 08/01/18 22:58 08/01/18 22:58
--- NOTE | 2018-08-02 16:42 | CARD ---
APPROVED REPORT Date of service: 08/01/2018 EKG Measurement Heart [id number] <Conclusion> Probabable sinus tachycardia. Supraventricular tachycardia can not be excluded. Please repeat. Voltage criteria for left ventricular hypertrophy Nonspecific ST and T wave abnormality Abnormal ECG
--- NOTE | 2018-08-02 23:55 | CP.PCM.HP ---
Past Patient History - Infectious Disease Hx of Infectious Diseases: None - Past Medical History & Family History Past Medical History?: Yes - Past Social History Smoking Status: Never Smoked - CARDIAC Hx Atrial Fibrillation: Yes Hx Cardia Arrhythmia: Yes Hx Hypercholesterolemia: Yes Hx Hypertension: Yes - PULMONARY Hx Chronic Obstructive Pulmonary Disease (COPD): Yes - NEUROLOGICAL Hx Neurological Disorder: No - HEENT Hx HEENT Problems: No - RENAL Hx Chronic Kidney Disease: Yes - ENDOCRINE/METABOLIC Hx Endocrine Disorders: No - HEMATOLOGICAL/ONCOLOGICAL Hx Blood Disorders: No Hx Hepatitis A: No Hx Hepatitis B: No Hx Hepatitis C: No - INTEGUMENTARY Hx Dermatological Problems: No - MUSCULOSKELETAL/RHEUMATOLOGICAL Hx Arthritis: Yes Hx Falls: No - GASTROINTESTINAL Hx Diverticulitis: Yes Hx Gastritis: Yes - GENITOURINARY/GYNECOLOGICAL Hx Genitourinary Disorders: Yes Hx Urinary Tract Infection: Yes - PSYCHIATRIC Hx Anxiety: Yes Hx Depression: Yes Hx Substance Use: No - SURGICAL HISTORY Hx Surgeries: Yes Other/Comment: bowel surgery 10 yrs ago - ANESTHESIA Hx Anesthesia: Yes Hx Anesthesia Reactions: No Hx Malignant Hyperthermia: No Meds Allergies/Adverse Reactions: Allergies Allergy/AdvReac Type Severity Reaction Status Date / Time Sulfa (Sulfonamide Allergy Verified 07/26/18 01:18 Antibiotics) Results - Vital Signs Recent Vital Signs: Last Vital Signs Temp 97.8 F 08/02/18 07:00 Pulse 66 08/02/18 08:10 Resp 20 08/02/18 07:00 BP 153/83 H 08/02/18 10:09 Pulse Ox 95 08/02/18 07:00 - Labs Result Diagrams: 08/01/18 22:58 08/01/18 22:58 Labs: Laboratory Results - last 24 hr 08/01/18 08/02/18 22:58 06:27 Total Creatine Kinase 32 CK-MB (Mass) 1.28 Troponin I 0.0740 T3 Uptake 44.6 H
--- NOTE | 2018-08-03 09:09 | HP ---
CHIEF COMPLAINT: Palpitation and stress. HISTORY OF PRESENT ILLNESS: This is an 82-year-old white female, well known to me with history of hypertension, atrial fibrillation, generalized anxiety disorder, and the patient is supposed to be on medication. She is noncompliant with her diet and medications, and the patient called ambulance because she was having rapid heartbeat, weakness, dizziness, not feeling well. She was anxious. She did take her Xanax on the morning of the day of the admission, but in the evening, she developed palpitation, weakness, and dizziness. No chest pain. No cough. No sore throat. The patient denies any polyuria, polydipsia, or polyphagia. The patient denies any hematuria or pyuria. The patient denies any sneezing. The patient has nasal congestion and rhinorrhea. She denies any fever or chills. She denies any dysuria. She has no history of trauma, fall, or loss of consciousness. The patient denies any history of joint pain. She denies any epistaxis. She denies any sneezing, itchy eyes, or itchy nose. PAST MEDICAL HISTORY: Anxiety, hypertension, and atrial fibrillation. SOCIAL HISTORY: Nonsmoker. Non-EtOH user. CURRENT MEDICATIONS: The patient is on metoprolol, Xanax, and vitamin D. PHYSICAL EXAMINATION: GENERAL: An elderly female who is anxious, weak. VITAL SIGNS: Blood pressure 167/81, pulse 66, respiratory rate 20, and temperature 97.8. Earlier in the ER, her heart rate was 140. SKIN: Senile turgor. No bruises. No purpura. No petechiae. HEENT: Atraumatic and normocephalic. Negative pallor. Negative jaundice. Extraocular movements are intact. NECK: Supple. No JVD. No lymph node. No thyromegaly. CHESTWALL: Bilateral symmetrical expansion. LUNGS: Bilaterally clear. No rale. No rhonchi. CVS: PMI in the fifth intercostal space. S1, S2 regular. Tachycardic. ABDOMEN: Soft, nontender. Bowel sounds are positive. RECTAL AND PELVIC: Deferred. EXTREMITIES: No clubbing, cyanosis, or edema. LOKIE ENGINEER: The patient is awake, alert, and oriented x3. She is anxious. She is moving all extremities. Power 5/5 x4. Plantars are downgoing. ASSESSMENT: 1. Sinus tachycardia. Rule out septicemia. Rule out pulmonary embolism. Rule out dehydration. 2. Hypertension. 3. Palpitation, atrial fibrillation. 4. Generalized anxiety disorder. PLAN: Detailed orders written. Seen and examined. Gabriele Hutchinson MD
[2018-08-04] MEDS ORDERED: Influenza Vaccine 60 MCG/0.5 ML SYR (3 yr & up) IM ONE (10:00)
== END 2018-08-02 11:15 | disposition left against medical advice (07) | DRG 310 ==
LOC: C.ER 22:19 → C.5S 08-02 00:25
PROVIDERS: ADMIT Internal Medicine; ATTEND Internal Medicine
DX: I47.1 Supraventricular tachycardia (principal); F41.1 Generalized anxiety disorder; I48.91 Unspecified atrial fibrillation; J44.9 Chronic obstructive pulmonary disease, unspecified; I12.9 Hypertensive chronic kidney disease with stage 1 through stage 4 chronic kidney disease, or unspecified chronic kidney disease; N18.9 Chronic kidney disease, unspecified; E78.00 Pure hypercholesterolemia, unspecified

== ENCOUNTER 2018-10-07 09:15 | Emergency (ER) | payer MEDICARE ==
[2018-10-07 09:15] VITALS: BMI 32.9
[2018-10-07] MEDS ORDERED: Sodium Chloride 0.9% 500 ML IV STA (10:05)
[2018-10-07 10:49] LABS: BASO # 0.1 K/uL (0.0-0.2); BASO % 1.4 % (0.0-2.0); EOS # 0.2 K/uL (0.0-0.7); EOS % 1.9 % (0.0-4.0); HEMOGLOBIN 14.7 g/dL (11.0-16.0); LYMPH # 2.2 K/uL (1.0-4.3); LYMPH % 24.6 % (20.0-40.0); MEAN CELL VOLUME 91.4 fL (81.0-99.0); MEAN CORPUSCULAR HEMOGLOBIN 30.4 pg (27.0-31.0); MEAN CORPUSCULAR HGB CONC 33.2 g/dL (33.0-37.0); MEAN PLATELET VOLUME 9.3 fL (7.2-11.7); MONO # 0.9 K/uL (0.0-0.8); MONO % 9.7 % (0.0-10.0); NEUT # 5.5 K/uL (1.8-7.0); NEUT % 62.4 % (50.0-75.0); RBC 4.82 Mil/uL (3.80-5.20); RED CELL DISTRIBUTION WIDTH 15.1 % (11.5-14.5); WHITE BLOOD COUNT 8.9 K/uL (4.8-10.8)
[2018-10-07 11:08] LABS: ALBUMIN 3.4 g/dL (3.5-5.0); ALT/SGPT 19 U/L (9-52); AMYLASE 47 U/L (30-110); AST/SGOT 20 U/L (14-36); BLOOD UREA NITROGEN 18 mg/dL (7-17); CALCIUM 9.1 mg/dl (8.6-10.4); GFR NON-AFRICAN AMERICAN > 60; LIPASE 19 U/L (23-300)
[2018-10-07 11:14] LABS: CK-MB 0.52 ng/mL (0.0-3.38)
[2018-10-07 11:49] LABS: SQUAMOUS EPITHIAL < 1 /hpf (0-5); URINE BILIRUBIN NEGATIVE (NEGATIVE); URINE BLOOD NEGATIVE (NEGATIVE); URINE CLARITY Clear (Clear); URINE COLOR Yellow (YELLOW); URINE GLUCOSE (UA) NORMAL (Normal); URINE LEUKOCYTE ESTERASE NEG Leu/uL (Negative); URINE PROTEIN NEGATIVE (NEGATIVE); URINE UROBILINOGEN NORMAL mg/dL (0.2-1.0)
[2018-10-07 12:02] VITALS: PULSE 64
--- NOTE | 2018-10-07 12:35 | C.PDOC ---
History Of Present Illness 82 year old female presents to the ED complaining of left 4th toe redness. Reports she pulled toe nail when she tried taking off her socks. States that she was seen by her polygraph operator Dr. Harris and was prescribed Augmentin. Patient notes improvement status post taking Augmenting but reports "infection from the toe drains to her left heel". Also complains of lump to her left side of abdomen for 10 years. Denies any pain, nausea, vomiting, diarrhea, or any other associated symptoms. Time Seen by Provider: 10/07/18 09:34 Chief Complaint (Nursing): Abdominal Pain History Per: Patient History/Exam Limitations: no limitations Onset/Duration Of Symptoms: Days Current Symptoms Are (Timing): Still Present Past Medical History Reviewed: Historical Data, Nursing Documentation, Vital Signs Vital Signs: Last Vital Signs Temp 97.4 F L 10/07/18 12:01 Pulse 64 10/07/18 12:01 Resp 18 10/07/18 12:01 BP 168/94 H 10/07/18 12:01 Pulse Ox 94 L 10/07/18 12:01 - Medical History PMH: Anxiety, Arthritis, Atrial Fibrillation, Cardia Arrhythmia, COPD, Depression, Diverticulitis, Gastritis, HTN, Hypercholesterolemia, Chronic Kidney Disease Surgical History: Hernia Repair - [facility] Procedures APPLICATION OF SPLINT (09/06/13) VACCINATION NEC (11/20/14) Family History: States: No Known Family Hx - Social History Hx Tobacco Use: No Hx Alcohol Use: No Hx Substance Use: No - Immunization History Hx Tetanus Toxoid Vaccination: Yes Hx Influenza Vaccination: Yes Hx Pneumococcal Vaccination: Yes Review Of Systems Except As Marked, All Systems Reviewed And Found Negative. Constitutional: Negative for: Fever, Chills Gastrointestinal: Positive for: Other (lump to left sided abdomen). Negative for: Nausea, Vomiting, Abdominal Pain, Diarrhea Musculoskeletal: Positive for: Foot Pain (left 4th toe redness) Physical Exam - Physical Exam Appears: Non-toxic, No Acute Distress Skin: Warm, Dry, No Rash Head: Normacephalic Eye(s): bilateral: Normal Inspection Nose: Normal Oral Mucosa: Moist Neck: Supple Chest: Symmetrical Cardiovascular: Rhythm Regular Respiratory: Normal Breath Sounds, No Rales, No Rhonchi, No Wheezing Gastrointestinal/Abdominal: Soft, No Tenderness, No Guarding, No Rebound, Hernia (large hernia to left upper quadrant, reducible. nontender. ) Extremity: Capillary Refill (less than 2 sec to left foot), No Deformity, Other (mild erythema to left 4th toe, no open sores/wounds, no swelling. ) Extremity: Bilateral: Normal ROM Pulses: Left Dorsalis Pedis: Normal, Right Dorsalis Pedis: Normal Neurological/Psych: Oriented x3, Normal Speech, Normal Cognition, Normal Motor, Normal Sensation Gait: Steady ED Course And Treatment - Laboratory Results Result Diagrams: 10/07/18 10:43 10/07/18 10:43 O2 Sat by Pulse Oximetry: 95 (RA) Pulse Ox Interpretation: Normal Progress Note: EKG and XR of left foot ordered and reviewed. XR is negative. Patient given IV fluids. Blood cultures collected and sent to the lab for analysis. Patient instructed to follow up with Health Analyst. Disposition - Disposition Referrals: Mateus Harris DPM [Staff Provider] - Gabriele Hutchinson MD [Staff Provider] - Disposition: HOME/ ROUTINE Disposition Time: 12:32 Condition: STABLE Additional Instructions: Follow up with PMD and Health Analyst within 2-3 days. Return to ED if feel worse. Instructions: Cellulitis (Skin Infection), Adult (DC) Forms: [employer] (Sinhala) - Clinical Impression Clinical Impression: Hernia of abdominal wall, Cellulitis of toe of left foot - PA / PRIMARY EDUCATION PROFESSOR / Resident Statement MD/DO has reviewed & agrees with the documentation as recorded. - Scribe Statement The provider has reviewed the documentation as recorded by the Scribe Nini Avila All medical record entries made by the Scribe were at my direction and personally dictated by me. I have reviewed the chart and agree that the record accurately reflects my personal performance of the history, physical exam, medical decision making, and the department course for this patient. I have also personally directed, reviewed, and agree with the discharge instructions and disposition.
--- NOTE | 2018-10-07 13:24 | RAD ---
Date of service: 10/07/2018 PROCEDURE: CHEST RADIOGRAPH, 1 VIEW HISTORY: SOB COMPARISON: Comparison is made with 08/01/2018 FINDINGS: LUNGS: No evidence of new infiltrate or consolidation in the lungs PLEURA: No pneumothorax or pleural fluid seen. CARDIOVASCULAR: No aortic atherosclerotic calcification present. Normal. OSSEOUS STRUCTURES: No significant abnormalities. VISUALIZED UPPER ABDOMEN: Normal. OTHER FINDINGS: None. IMPRESSION: No active disease.
[2018-10-07 15:05] VITALS: BP 158/89; RESP 16; TEMP 97.3; O2SAT 95
--- NOTE | 2018-10-07 17:40 | RAD ---
Date of service: 10/07/2018 PROCEDURE: Three views of left foot HISTORY: pain/erythema COMPARISON: Comparison is made to the previous study dated 09/01/2016 TECHNIQUE: AP oblique and lateral views of the left foot were obtained. FINDINGS: There is a diffuse osteopenia noted. No evidence of focal cortical destruction. There is subluxation at metatarsal-phalangeal joints more prominent at 3rd and 4th toe. No evidence of soft tissue pneumatosis. Diffuse shift tissue edema. IMPRESSION: No definite radiographic evidence of osteomyelitis or soft tissue emphysema.
--- NOTE | 2018-10-09 17:36 | CARD ---
APPROVED REPORT Date of service: 10/07/2018 EKG Measurement Heart [id number] <Conclusion> Sinus bradycardia Voltage criteria for left ventricular hypertrophy Abnormal ECG
== END 2018-10-07 15:04 | disposition home or self-care (01) ==
LOC: C.ER 09:15
DX: K43.9 Ventral hernia without obstruction or gangrene (principal); L03.116 Cellulitis of left lower limb; I12.9 Hypertensive chronic kidney disease with stage 1 through stage 4 chronic kidney disease, or unspecified chronic kidney disease; N18.9 Chronic kidney disease, unspecified; E78.00 Pure hypercholesterolemia, unspecified
CPT/HCPCS: 71045; 73660; 80053; 81001; 82150; 82550; 82553; 83690; 83735; 84484; 85025; 87040; 93005; 99285; J7040

== ENCOUNTER 2018-10-08 10:44 | Observation (INO) | payer MEDICARE ==
[2018-10-08 11:00] VITALS: BMI 31.8
[2018-10-08] MEDS ORDERED: Sodium Chloride 0.9% 500 ML IV ONE ×2 (11:20→11:46)
[2018-10-08 11:47] LABS: BASO # 0.1 K/uL (0.0-0.2); BASO % 0.7 % (0.0-2.0); EOS # 0.2 K/uL (0.0-0.7); EOS % 1.7 % (0.0-4.0); LYMPH # 2.3 K/uL (1.0-4.3); LYMPH % 20.1 % (20.0-40.0); MEAN CELL VOLUME 91.8 fL (81.0-99.0); MEAN CORPUSCULAR HEMOGLOBIN 30.6 pg (27.0-31.0); MEAN CORPUSCULAR HGB CONC 33.3 g/dL (33.0-37.0); MEAN PLATELET VOLUME 8.9 fL (7.2-11.7); MONO # 1.5 K/uL (0.0-0.8); MONO % 12.8 % (0.0-10.0); NEUT # 7.5 K/uL (1.8-7.0); NEUT % 64.7 % (50.0-75.0); NRBC % 0.1 % (0.0-2.0); RBC 4.92 Mil/uL (3.80-5.20); WHITE BLOOD COUNT 11.6 K/uL (4.8-10.8)
[2018-10-08 12:16] LABS: ALBUMIN 3.2 g/dL (3.5-5.0); ALT/SGPT 28 U/L (9-52); AST/SGOT 52 U/L (14-36); BLOOD UREA NITROGEN 18 mg/dL (7-17); CALCIUM 9.1 mg/dl (8.6-10.4); GFR NON-AFRICAN AMERICAN > 60
[2018-10-08 12:18] LABS: CK-MB 0.78 ng/mL (0.0-3.38)
--- NOTE | 2018-10-08 12:52 | C.PDOC ---
History Of Present Illness 82-year-old with a history of palpitations and chronic abdominal pain presents to the ED for evaluation of palpitations and lightheadedness that started this morning. She reports having constant palpitations. Patient notes prior visit to the ED 1 day ago where she was treated for a toe infection and cleared for discharge home. Denies falls, injuries, shortness of breath, chest pain, and any other associated symptoms. Time Seen by Provider: 10/08/18 11:19 Chief Complaint (Nursing): Dizziness/Lightheaded History Per: Patient History/Exam Limitations: no limitations Onset/Duration Of Symptoms: Hrs Current Symptoms Are (Timing): Still Present Fall Associated With With Symptoms: No Past Medical History Reviewed: Historical Data, Nursing Documentation, Vital Signs Vital Signs: Last Vital Signs Temp 97.4 F L 10/08/18 10:58 Pulse 141 H 10/08/18 10:58 Resp 22 10/08/18 10:58 BP 134/90 10/08/18 10:58 Pulse Ox 96 10/08/18 10:58 - Medical History PMH: Anxiety, Arthritis, Atrial Fibrillation, Cardia Arrhythmia, COPD, Depression, Diverticulitis, Gastritis, HTN, Hypercholesterolemia, Chronic Kidney Disease Surgical History: Hernia Repair - [facility] Procedures APPLICATION OF SPLINT (09/06/13) VACCINATION NEC (11/20/14) Family History: States: Unknown Family Hx - Social History Hx Tobacco Use: No Hx Alcohol Use: No Hx Substance Use: No - Immunization History Hx Tetanus Toxoid Vaccination: No Hx Influenza Vaccination: No Hx Pneumococcal Vaccination: No Review Of Systems Except As Marked, All Systems Reviewed And Found Negative. Constitutional: Negative for: Other ((-) fall. (-) injuries. ) Cardiovascular: Positive for: Palpitations. Negative for: Chest Pain Respiratory: Negative for: Shortness of Breath Neurological: Positive for: Other (lightheadedness.) Physical Exam - Physical Exam Appears: Well, Non-toxic, No Acute Distress Skin: Normal Color, Warm, Dry Head: Atraumatic, Normacephalic Eye(s): bilateral: Normal Inspection Oral Mucosa: Moist Neck: Normal ROM, Supple Chest: Symmetrical, No Deformity Cardiovascular: Rhythm Regular, No Murmur, Other (tachycardic.) Respiratory: Normal Breath Sounds, No Rales, No Rhonchi, No Wheezing Gastrointestinal/Abdominal: Normal Exam, Soft, No Tenderness Neurological/Psych: Oriented x3, Normal Speech, Normal Cognition ED Course And Treatment - Laboratory Results Result Diagrams: 10/08/18 11:37 10/08/18 11:37 ECG Rhythm: Sinus Tachycardia Interpretation Of ECG: Nonspecific ST changes. No ST elevations Rate From EC O2 Sat by Pulse Oximetry: 96 (RA) Pulse Ox Interpretation: Normal - Other Rad CXR X-Ray: Viewed By Me, Read By Radiologist Interpretation: FINDINGS: LUNGS: Prominent lung markings. No evidence of new infiltrate or consolidation in the lungs. PLEURA: No pneumothorax or pleural fluid seen. CARDIOVASCULAR: No aortic atherosclerotic calcification present. The cardiac silhouette is prominent in size. OSSEOUS STRUCTURES: No sig nificant abnormalities. VISUALIZED UPPER ABDOMEN: Normal. OTHER FINDINGS: None. IMPRESSION: No significant interval changes. Medical Decision Making Medical Decision Making: Plan: -CT ABD/Pelvis IV contrast only. -EKG -Blood sent. -CXR -Urine culture -Urinalysis. Progress/Update: Re-eval: Heart rate 66bpm, patient notes feeling better, symptoms have resolved. Patient has a history of constant palpitations but denies chest pain and a history of chronic abdominal pain but refusing CAT scan. Requesting discharge home. Family at bedside who agreed to take the patient home. Patient refused admission. Leaving AMA. Patient upon discharge changed her mind about leaving AMA and agreed to be admitted to the hospital. 3:27pm : Spoke with Dr. Jose Hutchinson regarding the patients case, agreed to admit the patient. Disposition - Disposition Disposition Time: 14:32 Condition: STABLE - Clinical Impression Clinical Impression: Dizziness, Tachycardia, Cardiac arrhythmia - Scribe Statement The provider has reviewed the documentation as recorded by the Scribe (Yolanda Villa) Provider Attestation: All medical record entries made by the Scribe were at my direction and personally dictated by me. I have reviewed the chart and agree that the record accurately reflects my personal performance of the history, physical exam, medical decision making, and the department course for this patient. I have also personally directed, reviewed, and agree with the discharge instructions and disposition. Decision To Admit - Pt Status Changed To: Hospital Disposition Of: Observation - . Bed Request Type: Telemetry Admitting Physician: Gabriele Hutchinson Patient Diagnosis: Dizziness, Tachycardia, Cardiac arrhythmia
[2018-10-08] MEDS ORDERED: Iodixanol 320 MG/ML 100 ML BOTTLE IV ONE (13:02)
--- NOTE | 2018-10-08 14:58 | RAD ---
Date of service: 10/08/2018 PROCEDURE: CHEST RADIOGRAPH, 1 VIEW HISTORY: SOB COMPARISON: Comparison is made with 10/07/2018 FINDINGS: LUNGS: Prominent lung markings. No evidence of new infiltrate or consolidation in the lungs PLEURA: No pneumothorax or pleural fluid seen. CARDIOVASCULAR: No aortic atherosclerotic calcification present. The cardiac silhouette is prominent in size. OSSEOUS STRUCTURES: No significant abnormalities. VISUALIZED UPPER ABDOMEN: Normal. OTHER FINDINGS: None. IMPRESSION: No significant interval changes.
[2018-10-08 17:09] VITALS: RESP 20
[2018-10-08] MEDS ORDERED: Ergocalciferol 50,000 Intl Units Cap PO SCH (18:00)
[2018-10-08 19:41] LABS: CK-MB 0.84 ng/mL (0.0-3.38); TROPONIN I 0.024 ng/mL (0.00-0.120)
--- NOTE | 2018-10-08 21:48 | CP.PCM.HP ---
Past Patient History - Infectious Disease Hx of Infectious Diseases: None - Past Medical History & Family History Past Medical History?: Yes - Past Social History Smoking Status: Never Smoked - CARDIAC Hx Atrial Fibrillation: Yes Hx Cardia Arrhythmia: Yes Hx Hypercholesterolemia: Yes Hx Hypertension: Yes - PULMONARY Hx Chronic Obstructive Pulmonary Disease (COPD): Yes - NEUROLOGICAL Hx Neurological Disorder: No - HEENT Hx HEENT Problems: No - RENAL Hx Chronic Kidney Disease: Yes - ENDOCRINE/METABOLIC Hx Endocrine Disorders: No - HEMATOLOGICAL/ONCOLOGICAL Hx Blood Disorders: No Hx Hepatitis A: No Hx Hepatitis B: No Hx Hepatitis C: No - INTEGUMENTARY Hx Dermatological Problems: No - MUSCULOSKELETAL/RHEUMATOLOGICAL Hx Arthritis: Yes - GASTROINTESTINAL Hx Diverticulitis: Yes Hx Gastritis: Yes - GENITOURINARY/GYNECOLOGICAL Hx Genitourinary Disorders: Yes Hx Urinary Tract Infection: Yes - PSYCHIATRIC Hx Anxiety: Yes Hx Depression: Yes Hx Substance Use: No - SURGICAL HISTORY Hx Surgeries: Yes Other/Comment: bowel surgery 10 yrs ago - ANESTHESIA Hx Anesthesia: Yes Hx Anesthesia Reactions: No Hx Malignant Hyperthermia: No Meds Allergies/Adverse Reactions: Allergies Allergy/AdvReac Type Severity Reaction Status Date / Time Sulfa (Sulfonamide Allergy Verified 10/08/18 10:54 Antibiotics) Results - Vital Signs Recent Vital Signs: Last Vital Signs Temp 97.3 F L 10/08/18 16:55 Pulse 80 10/08/18 16:55 Resp 20 10/08/18 16:55 BP 158/88 H 10/08/18 18:32 Pulse Ox 96 10/08/18 17:21 - Labs Result Diagrams: 10/08/18 11:37 10/08/18 11:37 Labs: Laboratory Results - last 24 hr 10/08/18 10/08/18 10/08/18 11:37 11:37 11:37 WBC 11.6 H RBC 4.92 Hgb 15.0 Hct 45.2 MCV 91.8 MCH 30.6 MCHC 33.3 RDW 15.0 H Plt Count 321 MPV 8.9 Neut % (Auto) 64.7 Lymph % (Auto) 20.1 Arthur % (Auto) 12.8 H Eos % (Auto) 1.7 Baso % (Auto) 0.7 Neut # (Auto) 7.5 H Lymph # (Auto) 2.3 Arthur # (Auto) 1.5 H Eos # (Auto) 0.2 Baso # (Auto) 0.1 Sodium 138 Potassium 4.0 Chloride 105 Carbon Dioxide 24 Anion Gap 13 BUN 18 H Creatinine 0.9 Est GFR ( Amer) > 60 Est GFR (Non-Af Amer) > 60 Random Glucose 101 Lactic Acid 2.0 Calcium 9.1 Total Bilirubin 0.7 AST 52 H D ALT 28 Alkaline Phosphatase 149 H Total Creatine Kinase CK-MB (Mass) 0.78 Troponin I < 0.0120 Total Protein 6.6 Albumin 3.2 L Globulin 3.4 Albumin/Globulin Ratio 1.0 TSH 3rd Generation 10/08/18 10/08/18 19:14 19:41 WBC RBC Hgb Hct MCV MCH MCHC RDW Plt Count MPV Neut % (Auto) Lymph % (Auto) Arthur % (Auto) Eos % (Auto) Baso % (Auto) Neut # (Auto) Lymph # (Auto) Arthur # (Auto) Eos # (Auto) Baso # (Auto) Sodium Potassium Chloride Carbon Dioxide Anion Gap BUN Creatinine Est GFR ( Amer) Est GFR (Non-Af Amer) Random Glucose Lactic Acid Calcium Total Bilirubin AST ALT Alkaline Phosphatase Total Creatine Kinase 28 L CK-MB (Mass) 0.84 Troponin I 0.0240 Total Protein Albumin Globulin Albumin/Globulin Ratio TSH 3rd Generation 2.17
[2018-10-09] MEDS: Enoxaparin 40 mg Syringe SC SCH (09:04)
[2018-10-09 11:44] LABS: CK-MB 0.65 ng/mL (0.0-3.38); TROPONIN I 0.013 ng/mL (0.00-0.120)
[2018-10-09 14:26] LABS: SQUAMOUS EPITHIAL 2 /hpf (0-5); URINE BILIRUBIN NEGATIVE (NEGATIVE); URINE BLOOD NEGATIVE (NEGATIVE); URINE CLARITY Clear (Clear); URINE COLOR Yellow (YELLOW); URINE GLUCOSE (UA) NORMAL (Normal); URINE LEUKOCYTE ESTERASE NEG Leu/uL (Negative); URINE PROTEIN 1+ mg/dL (NEGATIVE); URINE UROBILINOGEN NORMAL mg/dL (0.2-1.0)
[2018-10-09] MEDS ORDERED: Iodixanol 320 MG/ML 100 ML BOTTLE IV ONE (15:35)
--- NOTE | 2018-10-09 16:53 | CT ---
Date of service: 10/09/2018 PROCEDURE: CT Chest with contrast (Pulmonary Angiogram) HISTORY: palpitations COMPARISON: 08/02/2018 TECHNIQUE: Axial computed tomography images were obtained of the chest in the pulmonary arterial phase of enhancement. Coronal and sagittal reformatted images were created and reviewed. Intravenous contrast dose: 100 cc of Visipaque Radiation dose: Total exam DLP = 507.92 mGy-cm. This CT exam was performed using one or more of the following dose reduction techniques: Automated exposure control, adjustment of the mA and/or kV according to patient size, and/or use of iterative reconstruction technique. FINDINGS: PULMONARY ARTERIES: Unremarkable. No pulmonary embolism. AORTA: No acute findings. No thoracic aortic aneurysm. Aortic calcifications. LUNGS: Unremarkable. No nodule, mass or pulmonary consolidation. PLEURAL SPACES: Unremarkable. No effusion or pneumothorax. HEART: Unremarkable. No cardiomegaly. No significant pericardial effusion. LYMPH NODES: No lymphadenopathy. BONES, CHEST WALL: Unremarkable. No fracture or destructive lesion ossification of the anterior longitudinal ligament OTHER FINDINGS: Unremarkable. IMPRESSION: Unremarkable CT pulmonary angiogram. No pulmonary embolus.
--- NOTE | 2018-10-09 17:32 | CARD ---
APPROVED REPORT Date of service: 10/08/2018 EKG Measurement Heart [id number] <Conclusion> Normal sinus rhythm Moderate voltage criteria for LVH, may be normal variant Borderline ECG
--- NOTE | 2018-10-09 17:36 | CARD ---
APPROVED REPORT Date of service: 10/08/2018 EKG Measurement Heart [id number] <Conclusion> Possible Supraventricular tachycardia- Please repeat Voltage criteria for left ventricular hypertrophy Nonspecific ST and T wave abnormality Abnormal ECG
--- NOTE | 2018-10-09 21:03 | CP.PCM.PN ---
Subjective - Subjective Subjective: dictated Objective - Vital Signs/Intake and Output Vital Signs (last 24 hours): Temp Pulse Resp BP Pulse Ox 97.8 F 57 L 20 146/78 95 10/09/18 15:49 10/09/18 16:04 10/09/18 15:49 10/09/18 17:44 10/09/18 15:49 - Medications Medications: Current Medications Alprazolam (Xanax) 0.5 mg PO BID [facility] Last Admin: 10/09/18 17:44 Dose: 0.5 mg Aspirin (Aspirin Chewable) 81 mg PO DAILY [facility] Last Admin: 10/09/18 09:04 Dose: 81 mg Enoxaparin Sodium (Lovenox) 40 mg SC DAILY [facility] Last Admin: 10/09/18 09:04 Dose: Not Given Ergocalciferol (Drisdol 50,000 Intl Units Cap) 1 cap PO Q7D [facility] Last Admin: 10/08/18 18:32 Dose: 1 cap Metoprolol Tartrate (Lopressor) 25 mg PO BID [facility] Last Admin: 10/09/18 17:44 Dose: 25 mg Rosuvastatin Calcium (Crestor) 5 mg PO HS [facility] Last Admin: 10/08/18 21:51 Dose: 5 mg - Labs Labs: 10/08/18 11:37 10/08/18 11:37
--- NOTE | 2018-10-10 03:28 | CON ---
DATE: 10/09/2018 REASON FOR CONSULTATION: Palpitation. HISTORY OF PRESENT ILLNESS: The patient is an 82-year-old female who has history of chronic abdominal pain and history of palpitation, associated with dizziness. The patient recently signed against medical advice. The patient was evaluated in the emergency room in July of this year for SVT and EKG, that was performed and signed, stated probable sinus tachycardia, supraventricular tachycardia cannot be excluded, please repeat. The patient is unaware of any prior history of heart attack or stroke. The patient while on was noted to be in paroxysmal atrial fibrillation this morning. SOCIAL HISTORY: Nonsmoker, nondrinker. She lives with her son. MEDICATIONS: Aspirin 81 mg once a day, Crestor 5 mg once a day, Lopressor 25 mg once a day, Lovenox 40 mg subcutaneously once a day. REVIEW OF SYSTEMS: No nausea or vomiting. No fever or chills. No retrosternal chest pain. PHYSICAL EXAMINATION: GENERAL: The patient is an elderly female, who does not appear to be in acute distress. VITAL SIGNS: Blood pressure 146/86, heart rate 60, temperature 97.8, and respirations 20. Earlier the heart rate was 136. HEENT: Normocephalic. CHEST: Clear. HEART: S1 and S2 regular. ABDOMEN: Soft. EXTREMITIES: 1+ pitting edema. LABORATORY DATA: Today's hemoglobin and hematocrit 15 and 45.2, white count 11.6, and platelet count 321,000. Today's SMA-7 is within normal limits, except BUN of 18. Three sets of troponin are not in elevated range. Echocardiographic study performed in January of this year revealed normal ejection fraction with one abnormal relaxation pattern and mild concentric LVH. Yesterday's admitting EKG revealed sinus rhythm with moderate voltage criteria for LVH. TSH refers within normal limit. D-dimer is elevated . Chest CT angio, unremarkable. CT pulmonary angiogram, no pulmonary embolus. Chest x-ray revealed mild cardiomegaly, was found to have bronchovascular markings. ASSESSMENT: 1. Consider paroxysmal atrial fibrillation versus supraventricular tachycardia. There is no clear EKG to define during this admission. 2. Hypertension. RECOMMENDATION: Continue aspirin 81 mg daily, Crestor 5 mg once a day, Lopressor 25 mg twice a day, Lovenox 40 mg subcutaneous once a day. I did order stat EKG when the patient was reported to be in tachycardia, but the EKG has not been performed yet, and I instructed the nursing team to perform a 12-lead EKG while the patient is in tachycardia to verify the type of arrhythmia. Xavier Espinoza MD
[2018-10-10 07:58] VITALS: TEMP 97.4; O2SAT 95
[2018-10-10 08:01] VITALS: PULSE 69
[2018-10-10 09:52] VITALS: BP 147/80
[2018-10-10] MEDS: Enoxaparin 40 mg Syringe SC SCH (09:52)
--- NOTE | 2018-10-10 20:07 | CARD ---
APPROVED REPORT Date of service: 10/09/2018 EKG Measurement Heart [id number] <Conclusion> Normal sinus rhythm Moderate voltage criteria for LVH, may be normal variant Borderline ECG
--- NOTE | 2018-10-10 23:46 | CP.PCM.DIS ---
Provider - Provider Date of Admission: 10/08/18 15:42 Attending physician: Gabriele Hutchinson MD Consults: 10/08/18 18:05 Cardiology Consult Routine Comment: near syncope Consulting Provider: Xavier Espinoza Consulting Physician: Xavier Espinoza Reason for Consult: near syncope Hospital Course - Lab Results Lab Results: Most Recent Lab Values WBC 11.6 K/uL (4.8-10.8) H 10/08/18 11:37 RBC 4.92 Mil/uL (3.80-5.20) 10/08/18 11:37 Hgb 15.0 g/dL (11.0-16.0) 10/08/18 11:37 Hct 45.2 % (34.0-47.0) 10/08/18 11:37 MCV 91.8 fL (81.0-99.0) 10/08/18 11:37 MCH 30.6 pg (27.0-31.0) 10/08/18 11:37 MCHC 33.3 g/dL (33.0-37.0) 10/08/18 11:37 RDW 15.0 % (11.5-14.5) H 10/08/18 11:37 Plt Count 321 K/uL (130-400) 10/08/18 11:37 MPV 8.9 fL (7.2-11.7) 10/08/18 11:37 Neut % (Auto) 64.7 % (50.0-75.0) 10/08/18 11:37 Lymph % (Auto) 20.1 % (20.0-40.0) 10/08/18 11:37 Leake % (Auto) 12.8 % (0.0-10.0) H 10/08/18 11:37 Eos % (Auto) 1.7 % (0.0-4.0) 10/08/18 11:37 Baso % (Auto) 0.7 % (0.0-2.0) 10/08/18 11:37 Neut # (Auto) 7.5 K/uL (1.8-7.0) H 10/08/18 11:37 Lymph # (Auto) 2.3 K/uL (1.0-4.3) 10/08/18 11:37 Leake # (Auto) 1.5 K/uL (0.0-0.8) H 10/08/18 11:37 Eos # (Auto) 0.2 K/uL (0.0-0.7) 10/08/18 11:37 Baso # (Auto) 0.1 K/uL (0.0-0.2) 10/08/18 11:37 D-Dimer, Quantitative 3204 ng/mlDDU (0-243) H 10/09/18 14:01 Sodium 138 mmol/L (132-148) 10/08/18 11:37 Potassium 4.0 mmol/L (3.6-5.2) 10/08/18 11:37 Chloride 105 mmol/L (98-107) 10/08/18 11:37 Carbon Dioxide 24 mmol/L (22-30) 10/08/18 11:37 Anion Gap 13 (10-20) 10/08/18 11:37 BUN 18 mg/dL (7-17) H 10/08/18 11:37 Creatinine 0.9 mg/dL (0.7-1.2) 10/08/18 11:37 Est GFR ( Amer) > 60 10/08/18 11:37 Est GFR (Non-Af Amer) > 60 10/08/18 11:37 Random Glucose 101 mg/dL (65-105) 10/08/18 11:37 Lactic Acid 2.0 mmol/L (0.7-2.1) 10/08/18 11:37 Calcium 9.1 mg/dl (8.6-10.4) 10/08/18 11:37 Total Bilirubin 0.7 mg/dL (0.2-1.3) 10/08/18 11:37 AST 52 U/L (14-36) H D 10/08/18 11:37 ALT 28 U/L (9-52) 10/08/18 11:37 Alkaline Phosphatase 149 U/L (38-126) H 10/08/18 11:37 Total Creatine Kinase 35 U/L (30-135) 10/09/18 11:10 CK-MB (Mass) 0.65 ng/mL (0.0-3.38) 10/09/18 11:10 Troponin I 0.0130 ng/mL (0.00-0.120) 10/09/18 11:10 Total Protein 6.6 g/dL (6.3-8.3) 10/08/18 11:37 Albumin 3.2 g/dL (3.5-5.0) L 10/08/18 11:37 Globulin 3.4 gm/dL (2.2-3.9) 10/08/18 11:37 Albumin/Globulin Ratio 1.0 (1.0-2.1) 10/08/18 11:37 TSH 3rd Generation 2.17 mIU/L (0.46-4.68) 10/08/18 19:41 Urine Color Yellow (YELLOW) 10/09/18 14:14 Urine Clarity Clear (Clear) 10/09/18 14:14 Urine pH 6.0 (5.0-8.0) 10/09/18 14:14 Ur Specific [place] 1.017 (1.003-1.030) 10/09/18 14:14 Urine Protein 1+ mg/dL (NEGATIVE) H 10/09/18 14:14 Urine Glucose (UA) Normal mg/dL (Normal) 10/09/18 14:14 Urine Ketones Negative mg/dL (NEGATIVE) 10/09/18 14:14 Urine Blood Negative (NEGATIVE) 10/09/18 14:14 Urine Nitrate Negative (NEGATIVE) 10/09/18 14:14 Urine Bilirubin Negative (NEGATIVE) 10/09/18 14:14 Urine Urobilinogen Normal mg/dL (0.2-1.0) 10/09/18 14:14 Ur Leukocyte Esterase Neg Jorge Luis/uL (Negative) 10/09/18 14:14 Urine WBC (Auto) < 1 /hpf (0-5) 10/09/18 14:14 Ur Squamous Epith Cells 2 /hpf (0-5) 10/09/18 14:14 Discharge Plan - Discharge Medications Prescriptions: Metoprolol Tartrate [Lopressor] 25 mg PO BID #60 tab - Follow Up Plan Condition: STABLE Disposition: AGAINST MEDICAL ADVICE Instructions: Palpitations
--- NOTE | 2018-10-12 06:25 | DS ---
DISCHARGE DIAGNOSES: Atrial fibrillation with rapid ventricular response, generalized anxiety disorder, hypertension, dehydration. HISTORY OF PRESENT ILLNESS: This is an 82-year-old white female with a history of hypertension, atrial fibrillation, anxiety, depression, who came in because of palpitation, headache, dizziness. She was found to have rapid heart rate with irregularly irregular afib with high blood pressure. The patient was admitted to the floor. Started on oxygen, beta robert. Cardiac enzymes x3 were negative. Blood pressure was brought under control. Heart rate comes under control. She felt better. While her workup was in progress and a venous Doppler of lower extremity was pending, the patient signed out against medical advice. PHYSICAL EXAMINATION: VITAL SIGNS: Blood pressure 147/80, pulse 69, respiratory rate 20, temperature 97.4. LABORATORY DATA: WBC 11.6, hemoglobin 13, hematocrit 45.2, platelets 321. Sodium 138, potassium 4, chloride 105, bicarb 24, BUN 18, creatinine 0.9. LFTs are normal. Thyroid normal. CONDITION UPON DISCHARGE: Stable. CT angiogram was done to rule out PE and it was negative. Gabriele Hutchinson MD
== END 2018-10-10 10:45 | disposition left against medical advice (07) ==
LOC: C.ER 10:44 → C.9E 15:42 → C.5S 15:53
PROVIDERS: ADMIT Internal Medicine; ATTEND Internal Medicine
DX: I48.0 Paroxysmal atrial fibrillation (principal); R55 Syncope and collapse; I12.9 Hypertensive chronic kidney disease with stage 1 through stage 4 chronic kidney disease, or unspecified chronic kidney disease; E86.0 Dehydration; J44.9 Chronic obstructive pulmonary disease, unspecified; N18.9 Chronic kidney disease, unspecified; F41.1 Generalized anxiety disorder; E78.00 Pure hypercholesterolemia, unspecified; Z87.440 Personal history of urinary (tract) infections
CPT/HCPCS: 36415; 71045; 71275; 80053; 81001; 82553; 83605; 84443; 84484; 85025; 85378; 87086; 93005; 96372; 97116; 97162; 99285; G0378; G8978; G8979; J1650; J7040; Q9967

== ENCOUNTER 2018-12-19 04:32 | Emergency (ER) | payer MEDICARE ==
[2018-12-19 04:33] VITALS: BMI 32.9
--- NOTE | 2018-12-19 05:16 | C.PDOC ---
History Of Present Illness 83 year old female presents with sore throat for the past week. Patient called PMD a few days ago, was given Rx for PO antibiotics but reports no relief of pain. She states the pain worsens with swallowing. Denies URI or cough. 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 Denies trauma, fall, or UTI symptoms. Time Seen by Provider: 12/19/18 05:06 Chief Complaint (Nursing): ENT Problem History Per: Patient History/Exam Limitations: no limitations Onset/Duration Of Symptoms: Days Current Symptoms Are (Timing): Still Present Sick Contacts (Context): None Associated Symptoms: Sore Throat, Other (Lower back pain) Ear Symptoms: Bilateral: None Recent travel outside of the [place]: No Past Medical History Reviewed: Historical Data, Nursing Documentation, Vital Signs Vital Signs: Last Vital Signs Temp 97.8 F 12/19/18 04:44 Pulse 68 12/19/18 04:44 Resp 20 12/19/18 04:44 BP 174/96 H 12/19/18 04:44 Pulse Ox 97 12/19/18 04:44 - Medical History PMH: Anxiety, Arthritis, Atrial Fibrillation, Cardia Arrhythmia, COPD, Depression, Diverticulitis, Gastritis, HTN, Hypercholesterolemia, Chronic Kidney Disease Surgical History: Hernia Repair - [facility] Procedures APPLICATION OF SPLINT (09/06/13) VACCINATION NEC (11/20/14) Family History: States: Unknown Family Hx - Social History Hx Tobacco Use: No Hx Alcohol Use: No Hx Substance Use: No - Immunization History Hx Tetanus Toxoid Vaccination: Yes Hx Influenza Vaccination: Yes Hx Pneumococcal Vaccination: Yes Review Of Systems Constitutional: Negative for: Fever, Chills ENT: Positive for: Throat Pain. Negative for: Nose Discharge, Nose Congestion Respiratory: Negative for: Cough Genitourinary: Negative for: Dysuria, Incontinence, Hematuria Musculoskeletal: Positive for: Back Pain (Lower) Neurological: Negative for: Weakness, Numbness Physical Exam - Physical Exam Appears: Non-toxic Skin: Normal Color, Warm, Dry Head: Atraumatic, Normacephalic Eye(s): bilateral: Normal Inspection Ear(s): Bilateral: Normal Nose: Normal Oral Mucosa: Moist Throat: Erythema, No Exudate, Other ( hyperemic. No tonsillar enlargement) Neck: Normal, Supple Respiratory: Normal Breath Sounds, No Rales, No Rhonchi Extremity: Capillary Refill (<2 seconds), Other (Bilateral swollen legs, able to move both lower legs) Pulses: Left Dorsalis Pedis: Normal, Right Dorsalis Pedis: Normal Neurological/Psych: Oriented x3, Normal Speech, Normal Motor, Normal Sensation ED Course And Treatment O2 Sat by Pulse Oximetry: 97 (Room air) Pulse Ox Interpretation: Normal Progress Note: Rapid strep and UA ordered, results were negative. Tylenol administered. Patient resting comfortably in no acute distress, vitals are stable, will discharge home with Rx and instructions to follow up with PMD. Medical Decision Making Medical Decision Making: Pt remains stable in ED , tylenol and PO amoxicillin given Pt advised to follow up with PMD Disposition Counseled Patient/Family Regarding: Diagnosis, Need For Followup, Rx Given - Disposition Referrals: [facility] [Outside] Disposition: HOME/ ROUTINE Disposition Time: 06:37 Condition: STABLE Additional Instructions: Take all medications as directed Follwo up with PMD Gargle with salt water Use lozenges Return to ER if symptoms worsen Prescriptions: Amoxicillin 500 mg PO TID #21 tab Instructions: Sore Throat, Adult (DC) Forms: [employer] (Upper Sorbian) - Clinical Impression Clinical Impression: Pharyngitis - PA / EQUIPMENT MAINTENANCE ENGINEER / Resident Statement MD/DO has reviewed & agrees with the documentation as recorded. - Scribe Statement The provider has reviewed the documentation as recorded by the Scribe Julian Lara All medical record entries made by the Scribe were at my direction and personally dictated by me. I have reviewed the chart and agree that the record accurately reflects my personal performance of the history, physical exam, medical decision making, and the department course for this patient. I have also personally directed, reviewed, and agree with the discharge instructions and disposition.
[2018-12-19 06:03] VITALS: BP 160/73; PULSE 90; RESP 18; TEMP 98.9
[2018-12-19 06:41] VITALS: O2SAT 97
== END 2018-12-19 08:00 | disposition home or self-care (01) ==
LOC: C.ER 04:32
DX: J02.9 Acute pharyngitis, unspecified (principal)

== ENCOUNTER 2019-01-02 14:33 | Observation (INO) | payer MEDICARE ==
[2019-01-02 14:34] VITALS: BMI 32.9
--- NOTE | 2019-01-02 14:42 | C.PDOC ---
History Of Present Illness 83 y/o female,w/PMhx of anxiety, Atrial Fibrillation( on metropolol),COPD, HTN, and depression, presents to the ER complaining of left upper and lower quadrant abdominal pain which has been present for the past 2 weeks. Patient states that her "intestines are leaving the body and bowels are being strangled." Patient is also complaining of suicidal ideation. She notes that she wrote a suicide note. Denies having fever, chills, nausea, vomiting, diarrhea, hallucinations, and cutting herself. Time Seen by Provider: 01/02/19 14:42 Chief Complaint (Nursing): Psychiatric Evaluation History Per: Patient History/Exam Limitations: no limitations Onset/Duration Of Symptoms: Days Current Symptoms Are (Timing): Still Present Severity: Moderate Past Medical History Reviewed: Historical Data, Nursing Documentation, Vital Signs - Medical History PMH: Anxiety, Arthritis, Atrial Fibrillation, Cardia Arrhythmia, COPD, Depression, Diverticulitis, Gastritis, HTN, Hypercholesterolemia, Chronic Kidney Disease Surgical History: Hernia Repair - [facility] Procedures APPLICATION OF SPLINT (09/06/13) VACCINATION NEC (11/20/14) Family History: States: No Known Family Hx - Social History Hx Tobacco Use: No Hx Alcohol Use: No Hx Substance Use: No - Immunization History Hx Tetanus Toxoid Vaccination: Yes Hx Influenza Vaccination: Yes Hx Pneumococcal Vaccination: Yes Review Of Systems Constitutional: Negative for: Fever, Chills Cardiovascular: Negative for: Chest Pain Respiratory: Negative for: Shortness of Breath Gastrointestinal: Positive for: Abdominal Pain. Negative for: Nausea, Vomiting Genitourinary: Negative for: Dysuria, Hematuria Psych: Positive for: Suicidal ideation Physical Exam - Physical Exam Appears: No Acute Distress, Other (flat affect) Skin: Normal Color, Warm, Dry Head: Atraumatic, Normacephalic Eye(s): bilateral: Normal Inspection Nose: Normal Oral Mucosa: Moist Neck: Supple, Other (no meningeal signs) Chest: Symmetrical Cardiovascular: Rhythm Regular Respiratory: Normal Breath Sounds, No Rales, No Rhonchi, No Wheezing Gastrointestinal/Abdominal: Soft, No Tenderness, Distention (baseline per family), No Guarding, No Rebound Extremity: Normal ROM Extremity: Bilateral: Normal Color And Temperature Neurological/Psych: Oriented x3, Normal Speech, Other (suicidal ideation) ED Course And Treatment - Laboratory Results Result Diagrams: 01/02/19 15:49 01/02/19 15:49 ECG: Interpreted By Me, Viewed By Me ECG Rhythm: Sinus Bradycardia Rate From EC - Other Rad CXR X-Ray: Viewed By Me, Read By Radiologist Interpretation: Date of service: 01/02/2019. HISTORY: abd pain. COMPARISON: 10/08/[address] angio PE study from 10/09/2018 is noted. FINDINGS: LUNGS: Lung volumes low-normal. No consolidations seen. PLEURA: No significant pleural effusion identified, no pneumothorax apparent. CARDIOVASCULAR: There is presence of aortic atherosclerotic calcification on x-ray. Tortuous and unfolded thoracic aorta not significantly changed allowing for differences in technique and projection. Borderline cardiomegaly-similar No significant appearing pulmonary venous congestion. Mild degrees of pulmonary venous congestion perhaps chronic not excluded. Tortuosity of the tracheal air column similar-some right paratracheal soft tissue fullness noted tortuous brachiocephalic vessels is a consideration.. Some sclerotic right costo vertebral hypertrophic changes also in the differential considerations. OSSEOUS STRUCTURES: thoracic spondylosis. Bilateral shoulder arthrosis. VISUALIZED UPPER ABDOMEN: No free air seen. OTHER FINDINGS: None. IMPRESSION: No interval pathology noted. No infiltrate seen. No subdiaphragmatic free air noted. - CT Scan/US CT- Abd & Pelv. Other Rad Studies (CT/US): Read By Radiologist, Radiology Report Reviewed CT/US Interpretation: Date of service: 01/02/2019. PROCEDURE: CT Abdomen and Pelvis with contrast. HISTORY: "twisting intestines" per pt. COMPARISON: CT abdomen and pelvis with IV contrast performed 07/26/18. TECHNIQUE: Contrast dose: 100 mL Visipaque 320 IV. Radiation dose: Total exam DLP = 1245.03 mGy- cm. This CT exam was performed using one or more of the following dose reduction techniques: Automated exposure control, adjustment of the mA and/or kV according to patient size, and/or use of iterative reconstruction technique. FINDINGS: LOWER THORAX: Bibasilar atelectasis. Partially imaged cardiomegaly and dense coronary artery calcifications. LIVER: Unremarkable. GALLBLADDER AND BILE DUCTS: Unremarkable. PANCREAS: Fatty atrophy of the pancreas. SPLEEN: Absent. ADRENALS: Unremarkable. KIDNEYS AND URETERS: Bilateral renal atrophy. The kidneys enhance symmetrically. No hydronephrosis or obstructing calculus identified. Right renal cyst. Too small to characterize bilateral renal hypodensities; statistically likely cysts. 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 No aortic aneurysm identified. BOWEL: Stomach is nondistended. Lack of oral contrast limits evaluation for bowel pathology. Large left abdominal wall hernia containing nonobstructed bowel. Extensive diverticulosis without CT evidence of acute diverticulitis. APPENDIX: The appendix appears within normal limits of caliber. No secondary signs of acute appendicitis. PERITONEUM: No significant free fluid. No definite free air. LYMPH NODES: No bulky adenopathy identified. BLADDER: Unremarkable. REPRODUCTIVE: The uterus is present. 2.2 cm probable left ovarian cyst. BONES: Deformity of several posterior left ribs re-identified. Osseous demineralization. Degenerative changes. OTHER FINDINGS: Bilateral fat containing inguinal hernias. IMPRESSION: Extensive diverticulosis without CT evidence of acute diverticulitis. Large left abdominal wall hernia containing nonobstructed bowel. 2.2 cm probable left ovarian cyst. Suggest further evaluation with pelvic ultrasound. Re-identified left renal artery calcified aneurysm. Right renal cyst as well as bilateral too small to characterize renal hypodensities, statistically likely cysts. Absent spleen. Additional findings as above. Medical Decision Making Medical Decision Makin83 y/o female,w/PMhx of anxiety, Atrial Fibrillation (on metropolol),COPD, HTN, and depression, presents to the ER complaining of left upper and lower quadrant pain which has been present for the past 2 weeks.Patient is also complaining of suicidal ideation, likely intractable pain with suicidal ideation due to abdominal pain. Plan: --Labs --UA --ECG --CXR --CT-Abd & Pelv. --1:1 Obs. EKG Sinus Bradycardia 59 bpm no STEMI Intractable pain, x2 weeks, labs + imaging otherwise unremrakble, SI Seen by CRISIS: recommending 1:1 and inpatient follow Appreciate consult w/ Dr. Wilson to admit to his service pt in [place], agreeable to plan Disposition - Disposition Disposition: HOSPITALIZED Disposition Time: 18:46 Condition: GOOD - Clinical Impression Clinical Impression: Abdominal pain - Scribe Statement The provider has reviewed the documentation as recorded by the Allison Britton Provider Attestation: All medical record entries made by the Madihaibfestus were at my direction and personally dictated by me. I have reviewed the chart and agree that the record accurately reflects my personal performance of the history, physical exam, medical decision making, and the department course for this patient. I have also personally directed, reviewed, and agree with the discharge instructions and disposition.
[2019-01-02 15:57] LABS: BASO # 0.1 K/uL (0.0-0.2); BASO % 1.2 % (0.0-2.0); EOS # 0.4 K/uL (0.0-0.7); HEMOGLOBIN 13.7 g/dL (11.0-16.0); LYMPH % 22.7 % (20.0-40.0); MEAN CORPUSCULAR HEMOGLOBIN 31.4 pg (27.0-31.0); MEAN CORPUSCULAR HGB CONC 33.1 g/dL (33.0-37.0); MEAN PLATELET VOLUME 9.1 fL (7.2-11.7); MONO # 1.2 K/uL (0.0-0.8); MONO % 13.9 % (0.0-10.0); NEUT # 4.9 K/uL (1.8-7.0); NEUT % 57.2 % (50.0-75.0); RBC 4.38 Mil/uL (3.80-5.20); RED CELL DISTRIBUTION WIDTH 14.2 % (11.5-14.5); WHITE BLOOD COUNT 8.6 K/uL (4.8-10.8)
[2019-01-02 15:58] LABS: MEAN CELL VOLUME 94.7 fL (81.0-99.0)
[2019-01-02 16:01] LABS: VENOUS BLOOD GAS BASE EXCESS 0.3 mmol/L (0.0-2.0); VENOUS BLOOD GAS PCO2 42 mmHg (40-60); VENOUS BLOOD GAS PO2 37 mm/Hg (30-55); VENOUS BLOOD PH 7.39 (7.32-7.43)
[2019-01-02 16:11] LABS: ACETAMINOPHEN < 10.0 ug/mL (10.0-30.0); ALBUMIN 3.4 g/dL (3.5-5.0); ALT/SGPT 10 U/L (9-52); AST/SGOT 19 U/L (14-36); BLOOD UREA NITROGEN 17 mg/dL (7-17); CALCIUM 9.2 mg/dl (8.6-10.4); GFR NON-AFRICAN AMERICAN > 60; LIPASE 19 U/L (23-300); SALICYLATE < 1.0 mg/dL 1
[2019-01-02] MEDS ORDERED: Iodixanol 320 MG/ML 100 ML BOTTLE IV ONE (16:48)
--- NOTE | 2019-01-02 16:53 | RAD ---
Date of service: 01/02/2019 HISTORY: abd pain COMPARISON: 10/08/[address] angio PE study from 10/09/2018 is noted FINDINGS: LUNGS: Lung volumes low-normal. No consolidations seen. PLEURA: No significant pleural effusion identified, no pneumothorax apparent. CARDIOVASCULAR: There is presence of aortic atherosclerotic calcification on x-ray. Tortuous and unfolded thoracic aorta not significantly changed allowing for differences in technique and projection Borderline cardiomegaly-similar No significant appearing pulmonary venous congestion. Mild degrees of pulmonary venous congestion perhaps chronic not excluded. Tortuosity of the tracheal air column similar-some right paratracheal soft tissue fullness noted tortuous brachiocephalic vessels is a consideration.. Some sclerotic right costo vertebral hypertrophic changes also in the differential considerations. OSSEOUS STRUCTURES: thoracic spondylosis. Bilateral shoulder arthrosis. VISUALIZED UPPER ABDOMEN: No free air seen. OTHER FINDINGS: None. IMPRESSION: No interval pathology noted. No infiltrate seen. No subdiaphragmatic free air noted.
--- NOTE | 2019-01-02 17:55 | CT ---
Date of service: 01/02/2019 PROCEDURE: CT Abdomen and Pelvis with contrast HISTORY: "twisting intestines" per pt COMPARISON: CT abdomen and pelvis with IV contrast performed 07/26/18 TECHNIQUE: Contrast dose: 100 mL Visipaque 320 IV Radiation dose: Total exam DLP = 1245.03 mGy-cm. This CT exam was performed using one or more of the following dose reduction techniques: Automated exposure control, adjustment of the mA and/or kV according to patient size, and/or use of iterative reconstruction technique. FINDINGS: LOWER THORAX: Bibasilar atelectasis. Partially imaged cardiomegaly and dense coronary artery calcifications. LIVER: Unremarkable. GALLBLADDER AND BILE DUCTS: Unremarkable. PANCREAS: Fatty atrophy of the pancreas. SPLEEN: Absent. ADRENALS: Unremarkable. KIDNEYS AND URETERS: Bilateral renal atrophy. The kidneys enhance symmetrically. No hydronephrosis or obstructing calculus identified. Right renal cyst. Too small to characterize bilateral renal hypodensities; statistically likely cysts. 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 No aortic aneurysm identified. BOWEL: Stomach is nondistended. Lack of oral contrast limits evaluation for bowel pathology. Large left abdominal wall hernia containing nonobstructed bowel. Extensive diverticulosis without CT evidence of acute diverticulitis. APPENDIX: The appendix appears within normal limits of caliber. No secondary signs of acute appendicitis. PERITONEUM: No significant free fluid. No definite free air. LYMPH NODES: No bulky adenopathy identified. BLADDER: Unremarkable. REPRODUCTIVE: The uterus is present. 2.2 cm probable left ovarian cyst. BONES: Deformity of several posterior left ribs re-identified. Osseous demineralization. Degenerative changes. OTHER FINDINGS: Bilateral fat containing inguinal hernias. IMPRESSION: Extensive diverticulosis without CT evidence of acute diverticulitis. Large left abdominal wall hernia containing nonobstructed bowel. 2.2 cm probable left ovarian cyst. Suggest further evaluation with pelvic ultrasound. Re-identified left renal artery calcified aneurysm. Right renal cyst as well as bilateral too small to characterize renal hypodensities, statistically likely cysts. Absent spleen. Additional findings as above.
[2019-01-02 19:41] LABS: SQUAMOUS EPITHIAL 2 /hpf (0-5); URINE BACTERIA MOD (<OCC); URINE BILIRUBIN NEGATIVE (NEGATIVE); URINE BLOOD NEGATIVE (NEGATIVE); URINE CLARITY Hazy (Clear); URINE COLOR Amber (YELLOW); URINE GLUCOSE (UA) NORMAL (Normal); URINE LEUKOCYTE ESTERASE 3+ Leu/uL (Negative); URINE PROTEIN 1+ mg/dL (NEGATIVE); URINE TRIPLE PHOSPHATE CRYSTAL MOD /hpf (<OCC); WBC CLUMPS RARE /hpf
[2019-01-02] MEDS ORDERED: Ergocalciferol 50,000 Intl Units Cap PO SCH (19:45)
[2019-01-02 19:54] LABS: BARBITURATES, UR NEGATIVE (NEGATIVE); OPIATES, UR NEGATIVE (NEGATIVE); PHENCYCLIDINE, UR NEGATIVE (NEGATIVE)
[2019-01-02 20:00] LABS: BENZODIAZEPINES, UR POSITIVE (NEGATIVE)
--- NOTE | 2019-01-02 20:24 | CP.PCM.HP ---
History of Present Illness - History of Present Illness History of Present Illness: 83 y/o female,w/PMhx of anxiety, Atrial Fibrillation( on metropolol),COPD, HTN, and depression, presents to the ER complaining of left upper and lower quadrant abdominal pain which has been present for the past 2 weeks. Patient states that her "intestines are leaving the body and bowels are being strangled." Patient is also complaining of suicidal ideation. She notes that she wrote a suicide note Present on Admission - Present on Admission Any Indicators Present on Admission: No Review of Systems - Review of Systems All systems: reviewed and no additional remarkable complaints except (ABDOMINAL PAIN) Past Patient History - Infectious Disease Hx of Infectious Diseases: None - Past Medical History & Family History Past Medical History?: Yes - Past Social History Smoking Status: Never Smoked - CARDIAC Hx Atrial Fibrillation: Yes Hx Cardia Arrhythmia: Yes Hx Hypercholesterolemia: Yes Hx Hypertension: Yes - PULMONARY Hx Chronic Obstructive Pulmonary Disease (COPD): Yes - NEUROLOGICAL Hx Neurological Disorder: No - HEENT Hx HEENT Problems: No - RENAL Hx Chronic Kidney Disease: Yes - ENDOCRINE/METABOLIC Hx Endocrine Disorders: No - HEMATOLOGICAL/ONCOLOGICAL Hx Blood Disorders: No Hx Hepatitis A: No Hx Hepatitis B: No Hx Hepatitis C: No - INTEGUMENTARY Hx Dermatological Problems: No - MUSCULOSKELETAL/RHEUMATOLOGICAL Hx Arthritis: Yes - GASTROINTESTINAL Hx Diverticulitis: Yes Hx Gastritis: Yes - GENITOURINARY/GYNECOLOGICAL Hx Genitourinary Disorders: Yes Hx Urinary Tract Infection: Yes - PSYCHIATRIC Hx Anxiety: Yes Hx Depression: Yes Hx Substance Use: No - SURGICAL HISTORY Hx Surgeries: Yes Hx Splenectomy: Yes Other/Comment: bowel surgery 10 yrs ago - ANESTHESIA Hx Anesthesia: Yes Hx Anesthesia Reactions: No Hx Malignant Hyperthermia: No Meds Allergies/Adverse Reactions: Allergies Allergy/AdvReac Type Severity Reaction Status Date / Time Sulfa (Sulfonamide Allergy Verified 01/02/19 14:58 Antibiotics) Physical Exam - Constitutional Appears: Well - Head Exam Head Exam: ATRAUMATIC, NORMAL INSPECTION, NORMOCEPHALIC - Eye Exam Eye Exam: EOMI, Normal appearance, PERRL - ENT Exam ENT Exam: Mucous Membranes Moist, Normal Exam - Neck Exam Neck exam: Positive for: Normal Inspection - Respiratory Exam Respiratory Exam: Clear to Auscultation Bilateral, NORMAL BREATHING PATTERN - Cardiovascular Exam Cardiovascular Exam: REGULAR RHYTHM - GI/Abdominal Exam GI & Abdominal Exam: Diminished Bowel Sounds, Tenderness (VENTRAL HERNIA ) Results - Vital Signs Recent Vital Signs: Last Vital Signs Temp 98 F 01/02/19 19:51 Pulse 70 01/02/19 19:51 Resp 16 01/02/19 19:51 BP 188/94 H 01/02/19 19:57 Pulse Ox 98 01/02/19 19:51 - Labs Result Diagrams: 01/02/19 15:49 01/02/19 15:49 Labs: Laboratory Results - last 24 hr 01/02/19 01/02/19 01/02/19 15:49 15:49 15:49 WBC 8.6 RBC 4.38 Hgb 13.7 Hct 41.4 MCV 94.7 D MCH 31.4 H MCHC 33.1 RDW 14.2 Plt Count 474 H D MPV 9.1 Neut % (Auto) 57.2 Lymph % (Auto) 22.7 [place] % (Auto) 13.9 H Eos % (Auto) 5.0 H Baso % (Auto) 1.2 Neut # (Auto) 4.9 Lymph # (Auto) 2.0 [place] # (Auto) 1.2 H Eos # (Auto) 0.4 Baso # (Auto) 0.1 pO2 VBG pH VBG pCO2 VBG HCO3 VBG Total CO2 VBG O2 Sat (Calc) VBG Base Excess VBG Potassium Glucose Lactate Sodium 140 Potassium 3.9 Chloride 109 H Carbon Dioxide 24 Anion Gap 11 BUN 17 Creatinine 0.7 Est GFR ( Amer) > 60 Est GFR (Non-Af Amer) > 60 Random Glucose 112 H Calcium 9.2 Phosphorus 2.9 Magnesium 1.8 Total Bilirubin 0.9 AST 19 ALT 10 Alkaline Phosphatase 168 H Total Protein 7.0 Albumin 3.4 L Globulin 3.6 Albumin/Globulin Ratio 1.0 Lipase 19 L Venous Blood Potassium Urine Color Urine Clarity Urine pH Ur Specific [place] Urine Protein Urine Glucose (UA) Urine Ketones Urine Blood Urine Nitrate Urine Bilirubin Urine Urobilinogen Ur Leukocyte Esterase Urine WBC (Auto) Urine RBC (Auto) Urine WBC Clumps (Auto) Ur Squamous Epith Cells Triple Phos Crystals Urine Bacteria Salicylates < 1.0 Urine Opiates Screen Urine Methadone Screen Acetaminophen < 10.0 L Ur Barbiturates Screen Ur Phencyclidine Scrn Ur Amphetamines Screen U Benzodiazepines Scrn U Oth Cocaine Metabols U Cannabinoids Screen Alcohol, Quantitative < 10 01/02/19 01/02/19 01/02/19 15:58 19:23 19:23 WBC RBC Hgb Hct MCV MCH MCHC RDW Plt Count MPV Neut % (Auto) Lymph % (Auto) [place] % (Auto) Eos % (Auto) Baso % (Auto) Neut # (Auto) Lymph # (Auto) [place] # (Auto) Eos # (Auto) Baso # (Auto) pO2 37 VBG pH 7.39 VBG pCO2 42 VBG HCO3 24.4 VBG Total CO2 26.7 VBG O2 Sat (Calc) 76.5 H VBG Base Excess 0.3 VBG Potassium 3.4 L Glucose 112 H Lactate 1.7 Sodium 143.0 Potassium Chloride 109.0 H Carbon Dioxide Anion Gap BUN Creatinine Est GFR ( Amer) Est GFR (Non-Af Amer) Random Glucose Calcium Phosphorus Magnesium Total Bilirubin AST ALT Alkaline Phosphatase Total Protein Albumin Globulin Albumin/Globulin Ratio Lipase Venous Blood Potassium 3.4 L Urine Color [place] Urine Clarity Hazy Urine pH 7.0 Ur Specific [place] 1.036 H Urine Protein 1+ H Urine Glucose (UA) Normal Urine Ketones Negative Urine Blood Negative Urine Nitrate Negative Urine Bilirubin Negative Urine Urobilinogen 4.0 H Ur Leukocyte Esterase 3+ H Urine WBC (Auto) 31 H Urine RBC (Auto) 6 H Urine WBC Clumps (Auto) Rare H Ur Squamous Epith Cells 2 Triple Phos Crystals Mod H Urine Bacteria Mod H Salicylates Urine Opiates Screen Negative Urine Methadone Screen Negative Acetaminophen Ur Barbiturates Screen Negative Ur Phencyclidine Scrn Negative Ur Amphetamines Screen Negative U Benzodiazepines Scrn Positive U Oth Cocaine Metabols Negative U Cannabinoids Screen Negative Alcohol, Quantitative Assessment & Plan (1) Ventral hernia without obstruction or gangrene Status: Acute (2) Abdominal pain Status: Acute (3) Atrial fib/flutter, transient Status: Acute
[2019-01-02 21:05] VITALS: RESP 20
--- NOTE | 2019-01-02 22:17 | CP.PCM.PCO ---
Physician Communication Note - Physician Communication Note Physician Communication Note: See above.
--- NOTE | 2019-01-03 11:58 | CP.PCM.PN ---
Subjective - Date & Time of Evaluation Date of Evaluation: 01/03/19 Time of Evaluation: 11:57 - Subjective Subjective: NO FURTHER ABD PAIN VS STABLE P/E REMAINS SAME 1:1 WATCH AWAITING PSYCH EVAL Objective - Vital Signs/Intake and Output Vital Signs (last 24 hours): Temp Pulse Resp BP Pulse Ox 97.3 F L 75 20 157/80 H 95 01/03/19 08:00 01/03/19 08:00 01/03/19 08:00 01/03/19 10:00 01/03/19 08:00 Intake and Output: 01/02/19 01/03/19 23:59 11:59 Intake Total 150 Balance 150 - Medications Medications: Current Medications Alprazolam (Xanax) 0.5 mg PO BID PRN PRN Reason: Anxiety Last Admin: 01/03/19 04:01 Dose: 0.5 mg Heparin Sodium (Porcine) (Heparin) 5,000 units SC Q12 [facility] Last Admin: 01/03/19 10:01 Dose: Not Given Metoprolol Tartrate (Lopressor) 25 mg PO BID [facility] Last Admin: 01/03/19 10:00 Dose: 25 mg - Labs Labs: 01/02/19 15:49 01/02/19 15:49 Assessment and Plan (1) Ventral hernia without obstruction or gangrene Status: Acute (2) Abdominal pain Status: Acute (3) Atrial fib/flutter, transient Status: Acute
--- NOTE | 2019-01-03 12:35 | CARD ---
APPROVED REPORT Date of service: 01/02/2019 EKG Measurement Heart [id number] <Conclusion> Sinus bradycardia Moderate voltage criteria for LVH, may be normal variant Borderline ECG
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
--- NOTE | 2019-01-04 12:12 | CP.PCM.PN ---
Subjective - Date & Time of Evaluation Date of Evaluation: 01/04/19 Time of Evaluation: 12:11 - Subjective Subjective: AGITATION ABD PAIN LESS AWAITING URINE C/S PSYCH EVAL NOTED P/E REMAINS SAME Objective - Vital Signs/Intake and Output Vital Signs (last 24 hours): Temp Pulse Resp BP Pulse Ox 97.9 F 74 20 147/78 96 01/04/19 08:00 01/04/19 08:00 01/04/19 08:00 01/04/19 09:52 01/04/19 08:00 Intake and Output: 01/04/19 01/04/19 11:59 23:59 Intake Total 480 Balance 480 - Medications Medications: Current Medications Alprazolam (Xanax) 0.5 mg PO BID PRN PRN Reason: Anxiety Last Admin: 01/04/19 09:58 Dose: 0.5 mg Heparin Sodium (Porcine) (Heparin) 5,000 units SC Q12 [facility] Last Admin: 01/03/19 21:33 Dose: Not Given Hydroxyzine HCl (Atarax) 25 mg PO Q6 PRN PRN Reason: Agitation Metoprolol Tartrate (Lopressor) 25 mg PO BID [facility] Last Admin: 01/04/19 09:52 Dose: 25 mg Mirtazapine (Remeron) 7.5 mg PO HS [facility] Last Admin: 01/03/19 22:55 Dose: 7.5 mg - Labs Labs: 01/02/19 15:49 01/02/19 15:49 Assessment and Plan (1) Ventral hernia without obstruction or gangrene Status: Acute (2) Abdominal pain Status: Acute (3) Atrial fib/flutter, transient Status: Acute
--- NOTE | 2019-01-05 11:02 | CP.PCM.PN ---
Subjective - Date & Time of Evaluation Date of Evaluation: 01/05/19 Time of Evaluation: 11:01 - Subjective Subjective: URINE POS GRAM NEG RODS PT. CLAIMS SHE IS NOT SUICIDAL AWAITING [facility] CLEARANCE FOR DISCHARGE Objective - Vital Signs/Intake and Output Vital Signs (last 24 hours): Temp Pulse Resp BP Pulse Ox 98.5 F 70 20 120/68 96 01/05/19 08:22 01/05/19 08:22 01/05/19 08:22 01/05/19 10:10 01/05/19 08:22 Intake and Output: 01/04/19 01/05/19 23:59 11:59 Intake Total 850 240 Balance 850 240 - Medications Medications: Current Medications Alprazolam (Xanax) 0.5 mg PO BID PRN PRN Reason: Anxiety Last Admin: 01/05/19 02:15 Dose: 0.5 mg Heparin Sodium (Porcine) (Heparin) 5,000 units SC Q12 [facility] Last Admin: 01/03/19 21:33 Dose: Not Given Hydroxyzine HCl (Atarax) 25 mg PO Q6 PRN PRN Reason: Agitation Ceftriaxone Sodium 1 gm/ (Sodium Chloride) 100 mls @ 100 mls/hr IVPB DAILY [facility]; Protocol Last Admin: 01/05/19 10:11 Dose: 100 mls/hr Metoprolol Tartrate (Lopressor) 25 mg PO BID [facility] Last Admin: 01/05/19 10:10 Dose: 25 mg Mirtazapine (Remeron) 7.5 mg PO HS [facility] Last Admin: 01/04/19 21:45 Dose: Not Given - Labs Labs: 01/02/19 15:49 01/02/19 15:49 Assessment and Plan (1) Ventral hernia without obstruction or gangrene Status: Acute (2) Abdominal pain Status: Acute (3) Atrial fib/flutter, transient Status: Acute
--- NOTE | 2019-01-05 11:40 | PCM.PYCHPN ---
Psychiatric Progress Note - Psychiatric Progress Note Patient seen today, length of contact: 15 min Patient Chief Complaint: I m feeling better' Problems Identified/Issues Discussed: Patient was seen and evaluated, chart reviewed and discussed the staff. Patient reports improvement in her mood and reports improvement in the feelings of hopelessness helplessness. She mentioned that she just made a statement out of frustration however she is not suicidal and she does not want to kill herself. She is taking medication denies any side effects. Family is okay to take the patient back to home. Medication Change: Yes Medical Record Reviewed: Yes Mental Status Examination - Cognitive Function Orientation: Person, Place, Situation, Time Memory: Intact, Impaired Attention: WNL Concentration: WNL Association: WNL Fund of Knowledge: WNL - Mood Mood: Anxious - Affect Affect: Constricted - Speech Speech: Soft - Formal Thought Process Formal Thought Process: No Impairment - Suicidal Ideation Suicidal Ideation: No - Homicidal Ideation Homicidal Ideation: No Goal/Treatment Plan - Goal/Treatment Plan Need for Continued Stay: Remain at risks for inpatient hospitalization Progress Toward Problem(s) and Goals/Treatment Plan: Major depressive disorder recurrent severe without psychotic features -Supportive therapy -Psycho education -Hydroxyzine for anxiety -Remron for depression Pt psychiatrically stable and cleared for discharge.
--- NOTE | 2019-01-05 13:53 | CP.PCM.DIS ---
Provider - Provider Date of Admission: 01/02/19 18:39 Attending physician: Lashae Wilson MD Consults: 01/02/19 17:02 Psychiatry Consult Routine Comment: Consulting Provider: Mellissa Alicia Consulting Physician: Mellissa Alicia Reason for Consult: depression/ si 01/02/19 20:13 Psychiatry Consult Routine Comment: Consulting Provider: Mellissa Alicia Consulting Physician: Mellissa Alicia Reason for Consult: suicidal ideation Time Spent in preparation of Discharge (in minutes): 35 Diagnosis - Discharge Diagnosis (1) Ventral hernia without obstruction or gangrene Status: Acute (2) Abdominal pain Status: Acute (3) Atrial fib/flutter, transient Status: Acute Hospital Course - Lab Results Lab Results: Micro Results 01/04/19 15:35 Urine Random Urine Culture - Preliminary Gram Negative Rolando Most Recent Lab Values WBC 8.6 K/uL (4.8-10.8) 01/02/19 15:49 RBC 4.38 Mil/uL (3.80-5.20) 01/02/19 15:49 Hgb 13.7 g/dL (11.0-16.0) 01/02/19 15:49 Hct 41.4 % (34.0-47.0) 01/02/19 15:49 MCV 94.7 fL (81.0-99.0) D 01/02/19 15:49 MCH 31.4 pg (27.0-31.0) H 01/02/19 15:49 MCHC 33.1 g/dL (33.0-37.0) 01/02/19 15:49 RDW 14.2 % (11.5-14.5) 01/02/19 15:49 Plt Count 474 K/uL (130-400) H D 01/02/19 15:49 MPV 9.1 fL (7.2-11.7) 01/02/19 15:49 Neut % (Auto) 57.2 % (50.0-75.0) 01/02/19 15:49 Lymph % (Auto) 22.7 % (20.0-40.0) 01/02/19 15:49 [place] % (Auto) 13.9 % (0.0-10.0) H 01/02/19 15:49 Eos % (Auto) 5.0 % (0.0-4.0) H 01/02/19 15:49 Baso % (Auto) 1.2 % (0.0-2.0) 01/02/19 15:49 Neut # (Auto) 4.9 K/uL (1.8-7.0) 01/02/19 15:49 Lymph # (Auto) 2.0 K/uL (1.0-4.3) 01/02/19 15:49 [place] # (Auto) 1.2 K/uL (0.0-0.8) H 01/02/19 15:49 Eos # (Auto) 0.4 K/uL (0.0-0.7) 01/02/19 15:49 Baso # (Auto) 0.1 K/uL (0.0-0.2) 01/02/19 15:49 pO2 37 mm/Hg (30-55) 01/02/19 15:58 VBG pH 7.39 (7.32-7.43) 01/02/19 15:58 VBG pCO2 42 mmHg (40-60) 01/02/19 15:58 VBG HCO3 24.4 mmol/L 01/02/19 15:58 VBG Total CO2 26.7 mmol/L (22-28) 01/02/19 15:58 VBG O2 Sat (Calc) 76.5 % (40-65) H 01/02/19 15:58 VBG Base Excess 0.3 mmol/L (0.0-2.0) 01/02/19 15:58 VBG Potassium 3.4 mmol/L (3.6-5.2) L 01/02/19 15:58 Sodium 143.0 mmol/l (132-148) 01/02/19 15:58 Chloride 109.0 mmol/L (98-107) H 01/02/19 15:58 Glucose 112 mg/dl (65-105) H 01/02/19 15:58 Lactate 1.7 mmol/L (0.7-2.1) 01/02/19 15:58 Sodium 140 mmol/L (132-148) 01/02/19 15:49 Potassium 3.9 mmol/L (3.6-5.2) 01/02/19 15:49 Chloride 109 mmol/L (98-107) H 01/02/19 15:49 Carbon Dioxide 24 mmol/L (22-30) 01/02/19 15:49 Anion Gap 11 (10-20) 01/02/19 15:49 BUN 17 mg/dL (7-17) 01/02/19 15:49 Creatinine 0.7 mg/dL (0.7-1.2) 01/02/19 15:49 Est GFR ( Amer) > 60 01/02/19 15:49 Est GFR (Non-Af Amer) > 60 01/02/19 15:49 POC Glucose (mg/dL) 108 mg/dL (65-110) 01/04/19 07:44 Random Glucose 112 mg/dL (65-105) H 01/02/19 15:49 Calcium 9.2 mg/dl (8.6-10.4) 01/02/19 15:49 Phosphorus 2.9 mg/dL (2.5-4.5) 01/02/19 15:49 Magnesium 1.8 mg/dL (1.6-2.3) 01/02/19 15:49 Total Bilirubin 0.9 mg/dL (0.2-1.3) 01/02/19 15:49 AST 19 U/L (14-36) 01/02/19 15:49 ALT 10 U/L (9-52) 01/02/19 15:49 Alkaline Phosphatase 168 U/L (38-126) H 01/02/19 15:49 Total Protein 7.0 g/dL (6.3-8.3) 01/02/19 15:49 Albumin 3.4 g/dL (3.5-5.0) L 01/02/19 15:49 Globulin 3.6 gm/dL (2.2-3.9) 01/02/19 15:49 Albumin/Globulin Ratio 1.0 (1.0-2.1) 01/02/19 15:49 Lipase 19 U/L (23-300) L 01/02/19 15:49 Venous Blood Potassium 3.4 mmol/L (3.6-5.2) L 01/02/19 15:58 Urine Color [place] (YELLOW) 01/02/19 19:23 Urine Clarity Hazy (Clear) 01/02/19 19:23 Urine pH 7.0 (5.0-8.0) 01/02/19 19: Ur Specific [place] 1.036 (1.003-1.030) H 01/02/19 19: Urine Protein 1+ mg/dL (NEGATIVE) H 01/02/19 19:23 Urine Glucose (UA) Normal mg/dL (Normal) 01/02/19 19: Urine Ketones Negative mg/dL (NEGATIVE) 01/02/19: Urine Blood Negative (NEGATIVE) 01/02/19: Urine Nitrate Negative (NEGATIVE) 01/02/19 19: Urine Bilirubin Negative (NEGATIVE) 01/02/19: Urine Urobilinogen 4.0 mg/dL (0.2-1.0) H 01/02/19 19: Ur Leukocyte Esterase 3+ [place]/uL (Negative) H 01/02/19 19: Urine WBC (Auto) 31 /hpf (0-5) H 01/02/19: Urine RBC (Auto) 6 /hpf (0-3) H 01/02/19: Urine WBC Clumps (Auto) Rare /hpf (NONE) H 01/02/19 19: Ur Squamous Epith Cells 2 /hpf (0-5) 01/02/19: Triple Phos Crystals Mod /hpf (<OCC) H 01/02/19 19: Urine Bacteria Mod (<OCC) H 01/02/19 19: Salicylates < 1.0 mg/dL 1 01/02/19 15:49 Urine Opiates Screen Negative (NEGATIVE) 01/02/19 19: Urine Methadone Screen Negative (NEGATIVE) 01/02/19 19: Acetaminophen < 10.0 ug/mL (10.0-30.0) L 01/02/19 15:49 Ur Barbiturates Screen Negative (NEGATIVE) 01/02/19 19: Ur Phencyclidine Scrn Negative (NEGATIVE) 01/02/19 19: Ur Amphetamines Screen Negative (NEGATIVE) 01/02/19 19: U Benzodiazepines Scrn Positive (NEGATIVE) 01/02/19 19: U Oth Cocaine Metabols Negative (NEGATIVE) 01/02/19: U Cannabinoids Screen Negative (NEGATIVE) 01/02/19 19: Alcohol, Quantitative < 10 mg/dl (0-10) 01/02/19 15:49 - Hospital Course Hospital Course: 83 y/o female,w/PMhx of anxiety, Atrial Fibrillation( on metropolol),COPD, HTN, and depression, presents to the ER complaining of left upper and lower quadrant abdominal pain which has been present for the past 2 weeks. Patient states that her "intestines are leaving the body and bowels are being strangled." Patient is also complaining of suicidal ideation. She notes that she wrote a suicide note PT WAS EVALUATED BY PSYCH PT WAS CLEARED FROM PSYCH URINE SHOWED GRM, NEG 48 HRS IV ROCEPHIN AND PO CIPRO PT IS DISCHARGED PT HAS MAJOR PSYCH DISORDER [place] [facility] [facility] [place]charge Exam - Head Exam Head Exam: ATRAUMATIC, NORMAL INSPECTION, NORMOCEPHALIC Discharge Plan - Follow Up Plan Condition: GOOD Disposition: HOME/ ROUTINE
[2019-01-05 15:49] VITALS: BP 152/75; PULSE 61; TEMP 98.2; O2SAT 97
== END 2019-01-05 18:25 | disposition home or self-care (01) ==
LOC: C.ER 14:33 → C.3T 18:39
PROVIDERS: ADMIT Internal Medicine Cardiovascular Disease; ATTEND Internal Medicine Cardiovascular Disease
DX: K43.9 Ventral hernia without obstruction or gangrene (principal); K57.90 Diverticulosis of intestine, part unspecified, without perforation or abscess without bleeding; K86.89 Other specified diseases of pancreas; N18.9 Chronic kidney disease, unspecified; N28.1 Cyst of kidney, acquired; Z87.440 Personal history of urinary (tract) infections; E78.00 Pure hypercholesterolemia, unspecified; F33.2 Major depressive disorder, recurrent severe without psychotic features; F41.9 Anxiety disorder, unspecified; I12.9 Hypertensive chronic kidney disease with stage 1 through stage 4 chronic kidney disease, or unspecified chronic kidney disease; I25.10 Atherosclerotic heart disease of native coronary artery without angina pectoris; I48.91 Unspecified atrial fibrillation; I48.92 Unspecified atrial flutter; J44.9 Chronic obstructive pulmonary disease, unspecified; K40.20 Bilateral inguinal hernia, without obstruction or gangrene, not specified as recurrent
CPT/HCPCS: 71045; 74177; 80053; 81001; 82803; 82948; 83690; 83735; 84100; 85025; 87086; 87181; 93005; 96365; 96366; 97110; 97116; 97162; 97166; 97530; 99285; G0378; G0480; G8978; G8979; G8987; G8988; J0696; Q9967

== ENCOUNTER 2019-01-17 04:23 | Emergency (ER) | payer MEDICARE ==
[2019-01-17 04:37] VITALS: BMI 31.8
[2019-01-17 04:41] VITALS: TEMP 97.6
--- NOTE | 2019-01-17 04:57 | C.PDOC ---
History Of Present Illness 83 year old female with Hx of anxiety, ventral hernia, HTN, and afib presents complaining of abdominal pain, states she feels her "intestines moving". Patient has been seen for similar in the past, CT done on 01/02/19 shows large hernia. Denies fever or other complaints. Appears very anxious in the ER. <Jose Francisco Michael - Last Filed: 01/17/19 06:51> History Per: Patient History/Exam Limitations: no limitations Onset/Duration Of Symptoms: Hrs Current Symptoms Are (Timing): Still Present Quality Of Discomfort: Other ("Intestines moving") Associated Symptoms: denies: Fever, Nausea, Vomiting, Diarrhea Exacerbating Factors: None Alleviating Factors: None Recent travel outside of the [place]: No Abnormal Vaginal Bleeding: No <Jose Francisco Michael - Last Filed: 01/17/19 06:51> <Angelica Velasquez - Last Filed: 01/17/19 09:15> Time Seen by Provider: 01/17/19 04:39 Chief Complaint (Nursing): Abdominal Pain Past Medical History Reviewed: Historical Data, Nursing Documentation, Vital Signs Vital Signs: Last Vital Signs Temp 97.6 F 01/17/19 04:24 Pulse 66 01/17/19 04:24 Resp 19 01/17/19 04:24 BP 154/81 H 01/17/19 04:24 Pulse Ox 96 01/17/19 04:24 - Medical History PMH: Anxiety, Arthritis (KNEE), Atrial Fibrillation, Cardia Arrhythmia, COPD, Depression, Diverticulitis, Gastritis, HTN, Hypercholesterolemia, Chronic Kidney Disease, Rheumatoid Arthritis (B/L WRIST/DIGITS) Surgical History: Hernia Repair - [facility] Procedures APPLICATION OF SPLINT (09/06/13) VACCINATION NEC (11/20/14) Family History: States: Unknown Family Hx - Social History Hx Tobacco Use: No Hx Alcohol Use: No Hx Substance Use: No - Immunization History Hx Tetanus Toxoid Vaccination: Yes Hx Influenza Vaccination: Yes Hx Pneumococcal Vaccination: Yes <Jose Francisco Michael - Last Filed: 01/17/19 06:51> Vital Signs: Last Vital Signs Temp 97.6 F 01/17/19 04:24 Pulse 69 01/17/19 07:31 Resp 20 01/17/19 07:31 BP 168/91 H 01/17/19 07:31 Pulse Ox 95 03/27/19 07:31 - [facility] Procedures APPLICATION OF SPLINT (09/06/13) VACCINATION NEC (11/20/14) <Angelica Velasquez - Last Filed: 01/17/19 09:15> Review Of Systems Constitutional: Negative for: Fever, Chills Cardiovascular: Negative for: Chest Pain, Palpitations Respiratory: Negative for: Cough, Shortness of Breath Gastrointestinal: Positive for: Abdominal Pain. Negative for: Nausea, Vomiting Genitourinary: Negative for: Dysuria, Hematuria Musculoskeletal: Negative for: Back Pain Neurological: Negative for: Weakness, Numbness <Jose Francisco Michael - Last Filed: 01/17/19 06:51> Physical Exam - Physical Exam Appears: Non-toxic, Other (Anxious) Skin: Normal Color, Warm Head: Atraumatic, Normacephalic Eye(s): bilateral: Normal Inspection Oral Mucosa: Moist Neck: Normal, Supple Chest: Symmetrical, No Tenderness Cardiovascular: Rhythm Regular Respiratory: Normal Breath Sounds, No Rales, No Rhonchi, No Wheezing Gastrointestinal/Abdominal: Soft, No Tenderness, Hernia (Large ventral) Back: No CVA Tenderness Neurological/Psych: Oriented x3, Normal Speech <Jose Francisco Michael - Last Filed: 01/17/19 06:51> ED Course And Treatment - Laboratory Results Result Diagrams: 01/17/19 05:03 01/17/19 05:03 O2 Sat by Pulse Oximetry: 96 (Room air) Pulse Ox Interpretation: Normal <Jose Francisco Michael - Last Filed: 01/17/19 06:51> - Laboratory Results Result Diagrams: 01/17/19 05:03 01/17/19 05:03 Lab Results: PT 11.7 SECONDS (9.7-12.2) 01/17/19 05:03 INR 1.1 01/17/19 05:03 APTT 36 SECONDS (21-34) H 01/17/19 05:03 Total Bilirubin 0.7 mg/dL (0.2-1.3) 01/17/19 05:03 AST 28 U/L (14-36) 01/17/19 05:03 ALT 7 U/L (9-52) L D 01/17/19 05:03 Alkaline Phosphatase 147 U/L (38-126) H 01/17/19 05:03 Total Protein 6.8 g/dL (6.3-8.3) 01/17/19 05:03 Albumin 3.2 g/dL (3.5-5.0) L 01/17/19 05:03 Globulin 3.5 gm/dL (2.2-3.9) 01/17/19 05:03 Albumin/Globulin Ratio 0.9 (1.0-2.1) L 01/17/19 05:03 Lipase 23 U/L (23-300) 01/17/19 05:03 - CT Scan/US CT-Abd & Pelv. Other Rad Studies (CT/US): Read By Radiologist, Radiology Report Reviewed CT/US Interpretation: Date of service: 01/17/2019. PROCEDURE: CT Abdomen and Pelvis with contrast. HISTORY: abd pain h/o of hernia. COMPARISON: Comparison is made to the previous study dated 01/02/2019. TECHNIQUE: Contrast dose: 100 mL of Visipaque 320 intravenously. Axial and reformatted coronal and sagittal CT images of the abdomen and pelvis were obtained after IV contrast administration. Radiation dose: Total exam DLP = 1355.96 mGy-cm. This CT exam was performed using one or more of the following dose reduction techniques: Automated exposure control, adjustment of the mA and/or kV according to patient size, and/or use of iterative reconstruction technique. FINDINGS: LOWER THORAX: Small opacities at the lung bases likely atelectasis. There is no evidence of significant pleural effusion. Mild moderate cardiomegaly is again noted. Small hiatus hernia and distal esophagus mucosal thickening is again noted. LIVER: Significant interval change in the liver noted since the prior exam. GALLBLADDER AND BILE DUCTS: Evidence of acute cholecystitis. PANCREAS: Pancreatic atrophy changes are again noted the main pancreatic duct is not dilated. No CT evidence of acute pancreatitis. SPLEEN: Unremarkable. ADRENALS: Unremarkable. No mass. KIDNEYS AND URETERS: Again noted is n onobstructing calculus at the right kidney measures 13 millimeter in the transverse diameter. The kidneys enhance symmetrically without evidence of significant hydronephrosis. There are cystic lesions seen in the right kidney. VASCULATURE: Unremarkable. No aortic aneurysm. Diffuse atherosclerotic calcification noted in the abdominal aorta and iliac arteries. BOWEL: Colonic diverticulosis are again seen without evidence of diverticulitis. No evidence of bowel obstruction. No CT evidence of colitis. The stomach is not distended. APPENDIX: Evidence of appendicitis. PERITONEUM: Unremarkable. No free fluid. No free air. LYMPH NODES: Unremarkable. No enlarged lymph nodes. BLADDER: Unremarkable. REPRODUCTIVE: There is 2.2 centimeters cystic lesion at the left adnexa noted. Follow-up reassessment is recommended. The uterus and the right adnexa are unremarkable. BONES: Chronic deformity in the sacral coccyx spine is again noted. Diffuse mild osteoporosis and advanced degenerative changes are again noted. OTHER FINDINGS: Again noted is large left abdominal wall hernia contains small and large bowel loops without evidence of bowel obstruction or incarceration. Small fat containing left inguinal hernia is noted. IMPRESSION: No evidence of acute pathology or significant interval changes compared to the prior exam. Again noted is large left lateral abdominal wall hernia contains small and large bowel loops without evidence of bowel obstruction or incarceration. Nonobstructing right renal calculus. 2.2 centimeters cystic lesion at the left adnexa. Close follow-up reassessment is recommended. <Angelica Velasquez - Last Filed: 01/17/19 09:15> Medical Decision Making Medical Decision Making: Plan: * Blood work * UA * CT abd/pel Refuses PO contrast. case endorsed to day shift, pending ct scan, reassess, final dispo. <Jose Francisco Michael - Last Filed: 01/17/19 06:51> Medical Decision Makin:03 Patient is well- appearing. Abdomen is soft, non tender, with large ventral hernia. CT Scan reviewed and discussed with patient. Patient has been discharged home. <Angelica Velasquez - Last Filed: 01/17/19 09:15> Disposition <Jose Francisco Michael - Last Filed: 01/17/19 06:51> Counseled Patient/Family Regarding: Studies Performed, Diagnosis, Need For Followup - Disposition Disposition Time: 08:48 <Angelica Velasquez - Last Filed: 01/17/19 09:15> - Disposition Referrals: Lashae Wilson MD [Staff Provider] - Disposition: HOME/ ROUTINE Condition: STABLE Additional Instructions: CARMELINA GUTIERREZ, thank you for letting us take care of you today. The emergency medical care you received today was directed at your acute symptoms. If you were prescribed any medication, please fill it and take as directed. It may take several days for your symptoms to resolve. Return to the Emergency Department if your symptoms worsen, do not improve, or if you have any other problems. Please contact your doctor or call one of the physicians/clinics you have been referred to that are listed on the Patient Visit Information form that is included in your discharge packet. Bring any paperwork you were given at discharge with you along with any medications you are taking to your follow up visit. Our treatment cannot replace ongoing medical care by a primary care provider outside of the emergency department. Thank you for allowing the [facility] team to be part of your care today. Instructions: Acute Abdomen (Belly Pain), Adult (DC), Abdominal Hernia (DC) Forms: [employer] (Trinidadian), General Discharge Instructions - Clinical Impression Clinical Impression: Abdominal pain, Ventral hernia without obstruction or gangrene - Scribe Statement The provider has reviewed the documentation as recorded by the Scribe Julian Lara All medical record entries made by the Scribe were at my direction and personally dictated by me. I have reviewed the chart and agree that the record accurately reflects my personal performance of the history, physical exam, medical decision making, and the department course for this patient. I have also personally directed, reviewed, and agree with the discharge instructions and disposition. <Jose Francisco Michael - Last Filed: 01/17/19 06:51>
[2019-01-17 05:07] LABS: BASO # 0.1 K/uL (0.0-0.2); BASO % 1.3 % (0.0-2.0); EOS # 0.6 K/uL (0.0-0.7); EOS % 7.1 % (0.0-4.0); HEMOGLOBIN 13.3 g/dL (11.0-16.0); LYMPH # 2.2 K/uL (1.0-4.3); MEAN CELL VOLUME 93.3 fL (81.0-99.0); MEAN CORPUSCULAR HEMOGLOBIN 30.8 pg (27.0-31.0); MEAN PLATELET VOLUME 8.8 fL (7.2-11.7); MONO # 1.1 K/uL (0.0-0.8); MONO % 13.3 % (0.0-10.0); NEUT # 4.2 K/uL (1.8-7.0); NEUT % 51.3 % (50.0-75.0); RBC 4.31 Mil/uL (3.80-5.20); RED CELL DISTRIBUTION WIDTH 13.8 % (11.5-14.5); WHITE BLOOD COUNT 8.1 K/uL (4.8-10.8)
[2019-01-17 05:21] LABS: INR 1.1; PROTHROMBIN TIME 11.7 SECONDS (9.7-12.2)
[2019-01-17] MEDS ORDERED: Iohexol 240 (50 ml) PO STA (05:27)
[2019-01-17] MEDS ORDERED: Iohexol 240 (50 ml) ONE (05:33)
[2019-01-17 06:04] LABS: ALB/GLOB RATIO 0.9 (1.0-2.1); ALBUMIN 3.2 g/dL (3.5-5.0); ALT/SGPT 7 U/L (9-52); AST/SGOT 28 U/L (14-36); BLOOD UREA NITROGEN 15 mg/dL (7-17); CALCIUM 9.5 mg/dl (8.6-10.4); GFR NON-AFRICAN AMERICAN > 60; LIPASE 23 U/L (23-300)
[2019-01-17] MEDS ORDERED: Iodixanol 320 MG/ML 100 ML BOTTLE IV ONE (06:22)
[2019-01-17 07:32] VITALS: RESP 20; O2SAT 95
--- NOTE | 2019-01-17 07:39 | CT ---
Date of service: 01/17/2019 PROCEDURE: CT Abdomen and Pelvis with contrast HISTORY: abd pain h/o of hernia COMPARISON: Comparison is made to the previous study dated 01/02/2019 TECHNIQUE: Contrast dose: 100 mL of Visipaque 320 intravenously. Axial and reformatted coronal and sagittal CT images of the abdomen and pelvis were obtained after IV contrast administration Radiation dose: Total exam DLP = 1355.96 mGy-cm. This CT exam was performed using one or more of the following dose reduction techniques: Automated exposure control, adjustment of the mA and/or kV according to patient size, and/or use of iterative reconstruction technique. FINDINGS: LOWER THORAX: Small opacities at the lung bases likely atelectasis. There is no evidence of significant pleural effusion. Mild moderate cardiomegaly is again noted. Small hiatus hernia and distal esophagus mucosal thickening is again noted. LIVER: Significant interval change in the liver noted since the prior exam. GALLBLADDER AND BILE DUCTS: Evidence of acute cholecystitis. PANCREAS: Pancreatic atrophy changes are again noted the main pancreatic duct is not dilated. No CT evidence of acute pancreatitis SPLEEN: Unremarkable. ADRENALS: Unremarkable. No mass. KIDNEYS AND URETERS: Again noted is nonobstructing calculus at the right kidney measures 13 millimeter in the transverse diameter. The kidneys enhance symmetrically without evidence of significant hydronephrosis. There are cystic lesions seen in the right kidney. VASCULATURE: Unremarkable. No aortic aneurysm. Diffuse atherosclerotic calcification noted in the abdominal aorta and iliac arteries. BOWEL: Colonic diverticulosis are again seen without evidence of diverticulitis. No evidence of bowel obstruction. No CT evidence of colitis. The stomach is not distended. APPENDIX: Evidence of appendicitis. PERITONEUM: Unremarkable. No free fluid. No free air. LYMPH NODES: Unremarkable. No enlarged lymph nodes. BLADDER: Unremarkable. REPRODUCTIVE: There is 2.2 centimeters cystic lesion at the left adnexa noted. Follow-up reassessment is recommended. The uterus and the right adnexa are unremarkable. BONES: Chronic deformity in the sacral coccyx spine is again noted. Diffuse mild osteoporosis and advanced degenerative changes are again noted. OTHER FINDINGS: Again noted is large left abdominal wall hernia contains small and large bowel loops without evidence of bowel obstruction or incarceration. Small fat containing left inguinal hernia is noted. IMPRESSION: No evidence of acute pathology or significant interval changes compared to the prior exam. Again noted is large left lateral abdominal wall hernia contains small and large bowel loops without evidence of bowel obstruction or incarceration. Nonobstructing right renal calculus. 2.2 centimeters cystic lesion at the left adnexa. Close follow-up reassessment is recommended.
[2019-01-17 08:15] LABS: URINE BILIRUBIN NEGATIVE (NEGATIVE); URINE BLOOD NEGATIVE (NEGATIVE); URINE CLARITY Hazy (Clear); URINE COLOR Red (YELLOW); URINE GLUCOSE (UA) NORMAL (Normal); URINE PROTEIN NEGATIVE (NEGATIVE)
[2019-01-17 08:16] LABS: SQUAMOUS EPITHIAL 17 /hpf (0-5); URINE LEUKOCYTE ESTERASE TRACE Leu/uL (Negative); URINE UROBILINOGEN NORMAL mg/dL (0.2-1.0)
[2019-01-17 08:56] VITALS: BP 170/86; PULSE 67
== END 2019-01-17 09:08 | disposition home or self-care (01) ==
LOC: C.ER 04:23
DX: K43.9 Ventral hernia without obstruction or gangrene (principal); R10.9 Unspecified abdominal pain
CPT/HCPCS: 74177; 80053; 81001; 83690; 85025; 85610; 85730; 99284; Q9967

== ENCOUNTER 2019-01-20 09:58 | Emergency (ER) | payer MEDICARE ==
[2019-01-20 09:59] VITALS: BMI 31.8
[2019-01-20] MEDS ORDERED: Sodium Chloride 0.9% 500 ML IV ONE (10:43)
[2019-01-20 11:34] LABS: BASO # 0.1 K/uL (0.0-0.2); BASO % 1.2 % (0.0-2.0); EOS # 0.4 K/uL (0.0-0.7); EOS % 4.5 % (0.0-4.0); HEMOGLOBIN 14.3 g/dL (11.0-16.0); LYMPH % 24.6 % (20.0-40.0); MEAN CELL VOLUME 94.8 fL (81.0-99.0); MEAN CORPUSCULAR HEMOGLOBIN 31.5 pg (27.0-31.0); MEAN CORPUSCULAR HGB CONC 33.2 g/dL (33.0-37.0); MEAN PLATELET VOLUME 9.7 fL (7.2-11.7); MONO # 0.9 K/uL (0.0-0.8); MONO % 10.9 % (0.0-10.0); NEUT # 4.8 K/uL (1.8-7.0); NEUT % 58.8 % (50.0-75.0); NRBC % 0.2 % (0.0-2.0); RBC 4.55 Mil/uL (3.80-5.20); RED CELL DISTRIBUTION WIDTH 13.7 % (11.5-14.5); WHITE BLOOD COUNT 8.2 K/uL (4.8-10.8)
[2019-01-20 11:56] LABS: ALB/GLOB RATIO 1.1 (1.0-2.1); ALBUMIN 3.7 g/dL (3.5-5.0); ALT/SGPT < 6 U/L (9-52); AST/SGOT 18 U/L (14-36); BLOOD UREA NITROGEN 11 mg/dL (7-17); CALCIUM 9.2 mg/dl (8.6-10.4); GFR NON-AFRICAN AMERICAN > 60; LIPASE 20 U/L (23-300)
[2019-01-20 12:47] LABS: SQUAMOUS EPITHIAL < 1 /hpf (0-5); URINE BILIRUBIN NEGATIVE (NEGATIVE); URINE BLOOD NEGATIVE (NEGATIVE); URINE CLARITY Clear (Clear); URINE COLOR Yellow (YELLOW); URINE GLUCOSE (UA) NORMAL (Normal); URINE LEUKOCYTE ESTERASE NEG Leu/uL (Negative); URINE PROTEIN NEGATIVE (NEGATIVE)
--- NOTE | 2019-01-20 13:22 | C.PDOC ---
History Of Present Illness 83 y/o female is brought in by family stating that her bowels are coming out, when I eat I can feel it in my butt x1 week. When asked to clarify, patient admits to increased volume in stool and LUQ pain. Denies actual diarrhea, fever, nausea, vomiting, dysuria, or hematuria. Patient was seen in the ER in 01/17/19 and had bloodwork and CT of abd/pel done, which was all normal and patient was discharged. Time Seen by Provider: 01/20/19 10:10 Chief Complaint (Nursing): GI Problem History Per: Patient History/Exam Limitations: no limitations Onset/Duration Of Symptoms: Days Current Symptoms Are (Timing): Still Present Past Medical History Reviewed: Historical Data, Nursing Documentation, Vital Signs Vital Signs: Last Vital Signs Temp 97.6 F 01/20/19 10:21 Pulse 134 H 01/20/19 10:21 Resp 20 01/20/19 10:21 BP 158/106 H 01/20/19 10:21 Pulse Ox 94 L 01/20/19 10:21 - Medical History PMH: Anxiety, Arthritis (KNEE), Atrial Fibrillation, Cardia Arrhythmia, COPD, Depression, Diverticulitis, Gastritis, HTN, Hypercholesterolemia, Chronic Kidney Disease, Rheumatoid Arthritis (B/L WRIST/DIGITS) Surgical History: Hernia Repair - [facility] Procedures APPLICATION OF SPLINT (09/06/13) VACCINATION NEC (11/20/14) Family History: States: No Known Family Hx - Social History Hx Tobacco Use: No Hx Alcohol Use: No Hx Substance Use: No - Immunization History Hx Tetanus Toxoid Vaccination: Yes Hx Influenza Vaccination: Yes Hx Pneumococcal Vaccination: Yes Review Of Systems Constitutional: Negative for: Fever, Chills Respiratory: Negative for: Shortness of Breath Gastrointestinal: Positive for: Abdominal Pain (LUQ), Other (Increased stool volume). Negative for: Vomiting, Diarrhea Genitourinary: Negative for: Dysuria, Hematuria Musculoskeletal: Negative for: Back Pain Physical Exam - Physical Exam Appears: Non-toxic, No Acute Distress, Other (Anxious, bizarre affect, comfortable) Skin: Warm, Dry Head: Atraumatic, Normacephalic Eye(s): bilateral: Normal Inspection Oral Mucosa: Moist Neck: Supple Cardiovascular: Rhythm Regular (mildly tachycardic), No Murmur Respiratory: Normal Breath Sounds, No Rales, No Rhonchi, No Wheezing Gastrointestinal/Abdominal: Soft, No Tenderness, No Guarding, No Rebound, Hernia (palpable ventral hernia in LUQ, nontender), Other (Obese) Extremity: Bilateral: Atraumatic, Normal ROM Neurological/Psych: Oriented x3, Normal Speech ED Course And Treatment - Laboratory Results Result Diagrams: 01/20/19 11:30 01/20/19 11:30 Lab Results: Total Bilirubin 0.8 mg/dL (0.2-1.3) 01/20/19 11:30 AST 18 U/L (14-36) 01/20/19 11:30 ALT < 6 U/L (9-52) L 01/20/19 11:30 Alkaline Phosphatase 155 U/L (38-126) H 01/20/19 11:30 Total Protein 7.1 g/dL (6.3-8.3) 01/20/19 11:30 Albumin 3.7 g/dL (3.5-5.0) 01/20/19 11:30 Globulin 3.5 gm/dL (2.2-3.9) 01/20/19 11:30 Albumin/Globulin Ratio 1.1 (1.0-2.1) 01/20/19 11:30 Lipase 20 U/L (23-300) L 01/20/19 11:30 Urine Color Yellow (YELLOW) 01/20/19 12:37 Urine Clarity Clear (Clear) 01/20/19 12:37 Urine pH 7.0 (5.0-8.0) 01/20/19 12:37 Ur Specific [place] 1.010 (1.003-1.030) 01/20/19 12:37 Urine Protein Negative mg/dL (NEGATIVE) 01/20/19 12:37 Urine Glucose (UA) Normal mg/dL (Normal) 01/20/19 12:37 Urine Ketones Negative mg/dL (NEGATIVE) 01/20/19 12:37 Urine Blood Negative (NEGATIVE) 01/20/19 12:37 Urine Nitrate Negative (NEGATIVE) 01/20/19 12:37 Urine Bilirubin Negative (NEGATIVE) 01/20/19 12:37 Urine Urobilinogen 2.0 mg/dL (0.2-1.0) H 01/20/19 12:37 Ur Leukocyte Esterase Neg Jorge Luis/uL (Negative) 01/20/19 12:37 Urine WBC (Auto) < 1 /hpf (0-5) 01/20/19 12:37 Urine RBC (Auto) 1 /hpf (0-3) 01/20/19 12:37 Ur Squamous Epith Cells < 1 /hpf (0-5) 01/20/19 12:37 O2 Sat by Pulse Oximetry: 94 (RA) Pulse Ox Interpretation: Abnormal - CT Scan/US CT ABD/PELVIS 01/17 Other Rad Studies (CT/US): Read By Radiologist, Radiology Report Reviewed CT/US Interpretation: Accession No. : [id number]. Patient Name / ID : MATT COSME / [id number]. Exam Date : 01/17/2019 06:31:28 ( Approved ). Study Comment : Sex / Age : F / 83Y. Creator : Alfredo Kruger MD. Dictator : Alfredo Kruger MD. [employer] : Wall [employer] Wall Carpet Installer : Alfredo Kruger MD. Mohit rover2 : Report Date : 01/17/2019 07:35:30. My Comment : . Date of service: 01/17/2019. PROCEDURE: CT Abdomen and Pelvis with contrast. HISTORY: abd pain h/o of hernia. COMPARISON: Comparison is made to the previous study dated 01/02/2019. TECHNIQUE: Contrast dose: 100 mL of Visipaque 320 intravenously. Axial and reformatted coronal and sagittal CT images of the abdomen and pelvis were obtained after IV contrast administration. Radiation dose: Total exam DLP = 1355.96 mGy-cm. This CT exam was performed using one or more of the following dose reduction techniques: Automated exposure control, adjustment of the mA and/or kV according to patient size, and/or use of iterative reconstruction technique. FINDINGS: LOWER THORAX: Small opacities at the lung bases likely atelectasis. There is no evidence of significant pleural effusion. Mild moderate cardiomegaly is again noted. Small hiatus hernia and distal esophagus mucosal thickening is again noted. LIVER: Significant interval change in the liver noted since the prior exam. GALLBLADDER AND BILE DUCTS: Evidence of acute cholecystitis. PANCREAS: Pancreatic atrophy changes are again noted the main pancreatic duct is not dilated. No CT evidence of acute pancreatitis. SPLEEN: Unremarkable. ADRENALS: Unremarkable. No mass. KIDNEYS AND URETERS: Again noted is nonobstructing calculus at the right kidney measures 13 millimet er in the transverse diameter. The kidneys enhance symmetrically without evidence of significant hydronephrosis. There are cystic lesions seen in the right kidney. VASCULATURE: Unremarkable. No aortic aneurysm. Diffuse atherosclerotic calcification noted in the abdominal aorta and iliac arteries. BOWEL: Colonic diverticulosis are again seen without evidence of diverticulitis. No evidence of bowel obstruction. No CT evidence of colitis. The stomach is not distended. APPENDIX: Evidence of appendicitis. PERITONEUM: Unremarkable. No free fluid. No free air. LYMPH NODES: Unremarkable. No enlarged lymph nodes. BLADDER: Unremarkable. REPRODUCTIVE: There is 2.2 centimeters cystic lesion at the left adnexa noted. Follow-up reassessment is recommended. The uterus and the right adnexa are unremarkable. BONES: Chronic deformity in the sacral coccyx spine is again noted. Diffuse mild osteoporosis and advanced degenerative changes are again noted. OTHER FINDINGS: Again noted is large left abdominal wall hernia contains small and large bowel loops without evidence of bowel obstruction or incarceration. Small fat containing left inguinal hernia is noted. IMPRESSION: No evidence of acute pathology or significant interval changes compared to the prior exam. Again noted is large left lateral abdominal wall hernia contains small and large bowel loops without evidence of bowel obstruction or incarceration. Nonobstructing right renal calculus. 2.2 centimeters cystic lesion at the left adnexa. Close follow-up reassessment is recommended. Progress Note: Patient given IV fluids. Bloodwork and urine sent. EKG ordered. Reviewed previous CT scan, which was normal. Patient will be discharged home. Disposition Counseled Patient/Family Regarding: Studies Performed, Diagnosis, Need For Followup - Disposition Referrals: Gabriele Hutchinson MD [Staff Provider] - Disposition: HOME/ ROUTINE Disposition Time: 13:20 Condition: STABLE Additional Instructions: FOLLOW UP WITH YOUR DOCTOR IN 1-2 DAYS RETURN TO ER IF SYMPTOMS WORSEN Prescriptions: Famotidine [Pepcid] 20 mg PO BID PRN #15 tab PRN Reason: abdominal Instructions: Stomach Ache and Stomach Upset Forms: [employer] (Divehi) Print Language: GREENLANDIC - Clinical Impression Clinical Impression: Increased stool volume, Abdominal pain - Scribe Statement The provider has reviewed the documentation as recorded by the Madihaibfestus Moody Provider Attestation: All medical record entries made by the Madihaibe were at my direction and personally dictated by me. I have reviewed the chart and agree that the record accurately reflects my personal performance of the history, physical exam, medical decision making, and the department course for this patient. I have also personally directed, reviewed, and agree with the discharge instructions and disposition.
[2019-01-20 14:48] VITALS: BP 155/78; PULSE 89; RESP 18; TEMP 98
[2019-01-20 17:12] VITALS: O2SAT 94
== END 2019-01-20 14:48 | disposition home or self-care (01) ==
LOC: C.ER 09:58
DX: R10.12 Left upper quadrant pain (principal); R19.5 Other fecal abnormalities; E78.00 Pure hypercholesterolemia, unspecified; I48.91 Unspecified atrial fibrillation; I12.9 Hypertensive chronic kidney disease with stage 1 through stage 4 chronic kidney disease, or unspecified chronic kidney disease; N18.9 Chronic kidney disease, unspecified; J44.9 Chronic obstructive pulmonary disease, unspecified; M06.9 Rheumatoid arthritis, unspecified

== ENCOUNTER 2019-02-09 05:57 | Emergency (ER) | payer MEDICARE ==
[2019-02-09 05:58] VITALS: BMI 31.8
--- NOTE | 2019-02-09 06:36 | C.PDOC ---
History Of Present Illness 83 year old female with PMhx of anxiety, Atrial Fibrillation( on metropolol),COPD, HTN, and depression presents to the ED for evaluation. Patient states "I tried to kill myself by putting a pillow on my face". Patient reports doing the same a week ago, now feeling "funny" on the left side of her head. Patient has multiple prior admissions for abdominal pain and SI. As per previous notes patient states "intestines are leaving the body and bowels are being strangled." Patient currently states "my kidneys are being removed from my body". Patient denies HI, hallucinations, other medical complaints. PMhx of anxiety, Atrial Fibrillation( on metropolol),COPD, HTN, and depression, "intestines are leaving the body and bowels are being strangled." Patient is also complaining of suicidal ideation. <Cat Vuong - Last Filed: 02/09/19 06:55> History Per: Patient History/Exam Limitations: no limitations Onset/Duration Of Symptoms: Days Current Symptoms Are (Timing): Still Present Recent travel outside of the [place]: No Additional History Per: Patient <Cat Vuong - Last Filed: 02/09/19 06:55> <Norma Arzate - Last Filed: 02/09/19 10:00> Chief Complaint (Nursing): Psychiatric Evaluation Past Medical History Reviewed: Historical Data, Nursing Documentation, Vital Signs Vital Signs: Last Vital Signs Temp 97 F L 02/09/19 06:07 Pulse 70 02/09/19 06:07 Resp 16 02/09/19 06:07 BP 92/52 L 02/09/19 06:07 Pulse Ox 95 02/09/19 06:07 - Medical History PMH: Anxiety, Arthritis (KNEE), Atrial Fibrillation, Cardia Arrhythmia, COPD, Depression, Diverticulitis, Gastritis, HTN, Hypercholesterolemia, Chronic Kidney Disease, Rheumatoid Arthritis (B/L WRIST/DIGITS) Surgical History: Hernia Repair - [facility] Procedures APPLICATION OF SPLINT (09/06/13) VACCINATION NEC (11/20/14) Family History: States: Unknown Family Hx - Social History Hx Tobacco Use: No Hx Alcohol Use: No Hx Substance Use: No - Immunization History Hx Tetanus Toxoid Vaccination: Yes Hx Influenza Vaccination: Yes Hx Pneumococcal Vaccination: Yes <Cat Vuong - Last Filed: 02/09/19 06:55> Vital Signs: Last Vital Signs Temp 97 F L 02/09/19 06:07 Pulse 61 02/09/19 09:01 Resp 18 02/09/19 09:01 BP 162/79 H 02/09/19 09:01 Pulse Ox 98 02/09/19 09:01 - [facility] Procedures APPLICATION OF SPLINT (09/06/13) VACCINATION NEC (11/20/14) <Norma Arzate - Last Filed: 02/09/19 10:00> Review Of Systems Constitutional: Negative for: Fever, Chills Eyes: Negative for: Vision Change Cardiovascular: Negative for: Chest Pain, Palpitations Respiratory: Negative for: Shortness of Breath Gastrointestinal: Negative for: Nausea, Vomiting, Abdominal Pain Skin: Negative for: Rash Psych: Positive for: Depression, Suicidal ideation <Cat Vuong - Last Filed: 02/09/19 06:55> Physical Exam - Physical Exam Appears: Non-toxic, Unkempt, Other (poo hygiene) Skin: Normal Color, Warm, Dry Head: Atraumatic, Normacephalic, Abrasion (old abrasions left periorbital area, no swelling or bruising) Eye(s): bilateral: Normal Inspection, PERRL, EOMI Neck: Normal ROM, Supple Chest: Symmetrical Cardiovascular: Rhythm Regular Respiratory: Normal Breath Sounds, No Rales, No Rhonchi, No Wheezing Gastrointestinal/Abdominal: Soft, No Tenderness Extremity: Normal ROM, No Tenderness Neurological/Psych: Oriented x3, Other (labile, crying and then becomes angry in matter of seconds, active SI) Gait: Steady <Cat Vuong Last Filed: 02/09/19 06:55> ED Course And Treatment O2 Sat by Pulse Oximetry: 95 (ON RA) Pulse Ox Interpretation: Normal - Radiology CXR: Interpreted by Il CXR Interpretation: Yes: No Acute Disease <Cat Vuong Cande Last Filed: 02/09/19 06:55> - Laboratory Results Result Diagrams: 02/09/19 07:04 02/09/19 07:04 Lab Results: Total Bilirubin 0.9 mg/dL (0.2-1.3) 02/09/19 07:04 AST 21 U/L (14-36) 02/09/19 07:04 ALT < 6 U/L (9-52) L 02/09/19 07:04 Alkaline Phosphatase 160 U/L (38-126) H 02/09/19 07:04 Total Protein 6.8 g/dL (6.3-8.3) 02/09/19 07:04 Albumin 3.4 g/dL (3.5-5.0) L 02/09/19 07:04 Globulin 3.4 gm/dL (2.2-3.9) 02/09/19 07:04 Albumin/Globulin Ratio 1.0 (1.0-2.1) 02/09/19 07:04 <Norma Arzate - Last Filed: 02/09/19 10:00> Medical Decision Making Medical Decision Making: Plan: * CT head * EKG * Labs * 1:1 Obs * Crisis eval * UA <Cat Vuong - Last Filed: 02/09/19 06:55> Disposition - Disposition Disposition Time: 07:00 <Cat Vuong - Filed: 02/09/19 06:55> - Disposition Disposition Time: 10:00 - POA Present On Arrival: None <Norma Arzate - Last Filed: 02/09/19 10:00> - Disposition Disposition: HOME/ ROUTINE Condition: STABLE Instructions: Chronic Pain (DC) Forms: [facility] (Belarusian), General Discharge Instructions - Clinical Impression Clinical Impression: Chronic pain, Suicidal ideation - Scribe Statement The provider has reviewed the documentation as recorded by the Scribe Domenic Lopez All medical record entries made by the Scribe were at my direction and personally dictated by me. I have reviewed the chart and agree that the record accurately reflects my personal performance of the history, physical exam, medical decision making, and the department course for this patient. I have also personally directed, reviewed, and agree with the discharge instructions and disposition. <Cat Vuong - Last Filed: 02/09/19 06:55> Physician Patient Turnover Patient Signed Over To: Norma Arzate Handoff Comments: Pending CT scan, labs, crisis evaluation <Cat Vuong Last Filed: 02/09/19 06:55> Addendum Addendum: 02/09/19 07:15 Patient is an 83 y/o female endorsed to me by from Dr. Vuong at shift change, with multiple prior visits for similar complaints including abdominal pain. Old records reviewed, patient has a chronic left lateral hernia. Multiple abdominal imaging done in the past, primarily showing the hernia and no other acute abnormalities. Initially patient had suicidal ideations on arrival. At present she is awake and alert, labile, becoming agitated when questioned. She denies any headache, neck pain, fever, or chills. Patient is now complaining of back pain and lung pain when she drinks water. Patient is in no acute distress on exam. Abdomen soft, however patient is resistant to exam. Lungs clear bilaterally. Progress: EKG: NSR @ 64 bpm, No ST elevations or depressions XR obstructive series, interpreted by me: shows no obstruction, though poor image quality. Patient is being evaluated by [facility] for possible geriatric psych admission, however patient is currently refusing admission. 02/09/19 08:45 Patient is requesting her daily morning medications 0.5 mg PO Xanax and 25 mg PO Metoprolol given. Per crisis, patient should be admitted to geriatric psych unit. [facility] spoke with the patients son, who agrees with this plan. However they spoke with patient who is refusing psychiatric admission. [facility] is unable to force patient to stay in geriatric psych unit. 02/09/19 09:[address] Hutchinson, patient's PMD, who wants to start patient on atypical psychiatric medications, instead of her current Xanax. He will see patient in the office today for follow up. Spoke with son, who verbalizes agreement with plan and will come to pick patient up. <Norma Arzate - Last Filed: 02/09/19 10:00>
[2019-02-09 07:09] LABS: BASO # 0.1 K/uL (0.0-0.2); BASO % 1.3 % (0.0-2.0); EOS # 0.4 K/uL (0.0-0.7); EOS % 4.3 % (0.0-4.0); HEMOGLOBIN 15.1 g/dL (11.0-16.0); LYMPH # 2.1 K/uL (1.0-4.3); LYMPH % 25.4 % (20.0-40.0); MEAN CELL VOLUME 93.5 fL (81.0-99.0); MEAN CORPUSCULAR HEMOGLOBIN 31.6 pg (27.0-31.0); MEAN CORPUSCULAR HGB CONC 33.8 g/dL (33.0-37.0); MEAN PLATELET VOLUME 9.8 fL (7.2-11.7); MONO % 12.2 % (0.0-10.0); NEUT # 4.6 K/uL (1.8-7.0); NEUT % 56.8 % (50.0-75.0); NRBC % 0.1 % (0.0-2.0); RBC 4.77 Mil/uL (3.80-5.20); WHITE BLOOD COUNT 8.1 K/uL (4.8-10.8)
[2019-02-09 08:07] LABS: ALBUMIN 3.4 g/dL (3.5-5.0); ALT/SGPT < 6 U/L (9-52); AST/SGOT 21 U/L (14-36); BLOOD UREA NITROGEN 24 mg/dL (7-17); CALCIUM 9.1 mg/dl (8.6-10.4); GFR NON-AFRICAN AMERICAN 60
[2019-02-09 09:02] VITALS: BP 162/79; PULSE 61; RESP 18; O2SAT 98
[2019-02-09 09:03] VITALS: TEMP 97.9
--- NOTE | 2019-02-09 09:11 | RAD ---
Chest x-ray single frontal view HISTORY: Detox. COMPARISON: 01/02/2019 Findings: Biapical pleural thickening with upper lobe granulomatous changes. Diffuse increased interstitial markings. Right hilar prominence. Patchy increased markings in the right infrahilar region and left lung base. Atherosclerotic calcification at the aortic knob. Top normal heart size. Degenerative changes in the spine and shoulders. Question loose body at the lateral aspect of the left proximal humerus. Impression: Biapical pleural thickening with upper lobe granulomatous changes. Diffuse increased interstitial markings. Right hilar prominence. Patchy increased markings in the right infrahilar region and left lung base. Atherosclerotic calcification at the aortic knob. Top normal heart size. Degenerative changes in the spine and shoulders. Question loose body at the lateral aspect of the left proximal humerus.
--- NOTE | 2019-02-09 09:48 | RAD ---
Date of service: 02/09/2019 PROCEDURE: Radiographs of the chest and abdomen (obstructive series) HISTORY: Abdominal pain. COMPARISON: 01/17/2019. CT abdomen and pelvis. TECHNIQUE: AP radiograph of the chest, with upright and supine radiographs of the abdomen. 3 views obtained. FINDINGS: CHEST: Lungs: Clear. Cardiovascular: Cardiomegaly. No evidence of acute, significant cardiovascular disease. Atherosclerotic calcifications identified primarily aortic arch. Pleura: No pleural fluid. No pneumothorax. Other findings: None. ABDOMEN AND PELVIS: Bowel: Unremarkable bowel gas pattern. No evidence of mechanical obstruction. Free air: None. Bones: Unremarkable. Other findings: Redemonstration of right renal calculus disease. IMPRESSION: No acute findings related to/ accounting for the clinical presentation.
--- NOTE | 2019-02-14 03:46 | CARD ---
APPROVED REPORT Date of service: 02/09/2019 EKG Measurement Heart [id number] [id number] <Conclusion> Normal sinus rhythm Moderate voltage criteria for LVH, may be normal variant Borderline ECG
== END 2019-02-09 10:12 | disposition home or self-care (01) ==
LOC: C.ER 05:57
DX: G89.29 Other chronic pain (principal); R45.851 Suicidal ideations; I12.9 Hypertensive chronic kidney disease with stage 1 through stage 4 chronic kidney disease, or unspecified chronic kidney disease; I48.91 Unspecified atrial fibrillation; N18.9 Chronic kidney disease, unspecified; F41.9 Anxiety disorder, unspecified; F32.9 Major depressive disorder, single episode, unspecified
CPT/HCPCS: 71045; 74022; 80053; 82948; 83735; 84100; 85025; 99284; G0480

== ENCOUNTER 2019-02-12 06:02 | Emergency (ER) | payer MEDICARE ==
[2019-02-12 06:03] VITALS: BMI 31.8
[2019-02-12 07:10] VITALS: O2SAT 96
--- NOTE | 2019-02-12 07:33 | C.PDOC ---
History Of Present Illness 83 y/o female presents to the ED complaining of pain in her left side of abdomen, which started on 02/09/19. Patient has multiple prior ED evaluations for the same type of pain, including 3 days ago when she had normal blood work and abdominal x-ray. States when she went for an x-ray, the tech pushed down on the area and it hurts. Patient otherwise denies any nausea, vomiting, diarrhea, chest pain, SOB, fever, chills, or dysuria. States it feels like her insides are going to fall out. Time Seen by Provider: 02/12/19 06:59 Chief Complaint (Nursing): Abdominal Pain History Per: Patient History/Exam Limitations: no limitations Onset/Duration Of Symptoms: Days (x 3) Current Symptoms Are (Timing): Still Present Location Of Pain/Discomfort: LUQ Radiation Of Pain To:: None Quality Of Discomfort: "Pain" Past Medical History Reviewed: Historical Data, Nursing Documentation, Vital Signs Vital Signs: Last Vital Signs Temp 98 F 02/12/19 06:12 Pulse 62 02/12/19 07:01 Resp 18 02/12/19 07:01 BP 161/81 H 02/12/19 07:01 Pulse Ox 96 02/12/19 07:01 - Medical History PMH: Anxiety, Arthritis (KNEE), Atrial Fibrillation, Cardia Arrhythmia, COPD, Depression, Diverticulitis, Gastritis, HTN, Hypercholesterolemia, Chronic Kidney Disease, Rheumatoid Arthritis (B/L WRIST/DIGITS) Denies: Diabetes, Hepatitis, HIV, Seizures, Sexually Transmitted Disease Surgical History: Hernia Repair - [facility] Procedures APPLICATION OF SPLINT (09/06/13) VACCINATION NEC (11/20/14) Family History: States: Unknown Family Hx - Social History Hx Tobacco Use: No Hx Alcohol Use: No Hx Substance Use: No - Immunization History Hx Tetanus Toxoid Vaccination: Yes Hx Influenza Vaccination: Yes Hx Pneumococcal Vaccination: Yes Review Of Systems Constitutional: Negative for: Fever, Chills Cardiovascular: Negative for: Chest Pain Respiratory: Negative for: Shortness of Breath Gastrointestinal: Positive for: Abdominal Pain. Negative for: Nausea, Vomiting, Diarrhea Genitourinary: Negative for: Dysuria, Frequency Neurological: Negative for: Weakness, Headache Physical Exam - Physical Exam Appears: Non-toxic, No Acute Distress, Other (Anxious appearing, morbidly obese) Skin: Warm, Dry Head: Atraumatic, Normacephalic Eye(s): bilateral: Normal Inspection, PERRL, EOMI Neck: Normal ROM Chest: Symmetrical Cardiovascular: Rhythm Regular, No Murmur Respiratory: Normal Breath Sounds, No Accessory Muscle Use Gastrointestinal/Abdominal: Soft, No Tenderness (negative [place] sign, n egative McBurneys), No Guarding, No Rebound, Hernia (Left upper quadrant/Left periumbilical ventral hernia, mildly TTP) Extremity: Bilateral: Atraumatic, Normal Color And Temperature Neurological/Psych: Oriented x3, Normal Speech ED Course And Treatment - Laboratory Results Result Diagrams: 02/12/19 07:37 02/12/19 07:37 O2 Sat by Pulse Oximetry: 96 (RA) Pulse Ox Interpretation: Normal Progress Note: Blood work and UA ordered and reviewed. Patient given her AM dose of Metoprolol, 25 mg PO. Disposition Counseled Patient/Family Regarding: Studies Performed, Diagnosis, Need For Followup - Disposition Referrals: Asia Tate MD [Staff Provider] - Disposition: HOME/ ROUTINE Disposition Time: 08:50 Condition: STABLE Instructions: Chronic Pain (DC), Abdominal Hernia (DC) Forms: [employer] (Kinyarwanda) Print Language: ALBANIAN - Clinical Impression Clinical Impression: Chronic abdominal pain, Ventral hernia - Scribe Statement The provider has reviewed the documentation as recorded by the Allison Mcclendon Provider Attestation: All medical record entries made by the Madihaibfestus were at my direction and personally dictated by me. I have reviewed the chart and agree that the record accurately reflects my personal performance of the history, physical exam, medical decision making, and the department course for this patient. I have also personally directed, reviewed, and agree with the discharge instructions and disposition.
[2019-02-12 07:49] LABS: BASO # 0.1 K/uL (0.0-0.2); BASO % 0.7 % (0.0-2.0); EOS # 0.5 K/uL (0.0-0.7); EOS % 4.9 % (0.0-4.0); HEMOGLOBIN 14.4 g/dL (11.0-16.0); LYMPH # 3.1 K/uL (1.0-4.3); LYMPH % 29.9 % (20.0-40.0); MEAN CELL VOLUME 94.1 fL (81.0-99.0); MEAN PLATELET VOLUME 10.7 fL (7.2-11.7); MONO # 1.2 K/uL (0.0-0.8); MONO % 11.2 % (0.0-10.0); NEUT # 5.6 K/uL (1.8-7.0); NEUT % 53.3 % (50.0-75.0); NRBC % 0.3 % (0.0-2.0); RBC 4.52 Mil/uL (3.80-5.20); RED CELL DISTRIBUTION WIDTH 13.7 % (11.5-14.5); WHITE BLOOD COUNT 10.5 K/uL (4.8-10.8)
[2019-02-12 08:20] LABS: ALBUMIN 3.8 g/dL (3.5-5.0); ALT/SGPT < 6 U/L (9-52); AST/SGOT 36 U/L (14-36); BLOOD UREA NITROGEN 18 mg/dL (7-17); CALCIUM 9.1 mg/dl (8.6-10.4); GFR NON-AFRICAN AMERICAN > 60; LIPASE 14 U/L (23-300)
[2019-02-12 08:32] LABS: SQUAMOUS EPITHIAL 2 /hpf (0-5); URINE BACTERIA RARE (<OCC); URINE BILIRUBIN NEGATIVE (NEGATIVE); URINE BLOOD NEGATIVE (NEGATIVE); URINE CLARITY Hazy (Clear); URINE COLOR Yellow (YELLOW); URINE GLUCOSE (UA) NORMAL (Normal); URINE LEUKOCYTE ESTERASE TRACE Leu/uL (Negative); URINE PROTEIN NEGATIVE (NEGATIVE)
[2019-02-12 08:52] VITALS: BP 170/87; PULSE 59; RESP 20; TEMP 97.7
--- NOTE | 2019-02-14 03:27 | CARD ---
APPROVED REPORT Date of service: 02/12/2019 EKG Measurement Heart [id number] [id number] <Conclusion> Sinus rhythm with occasional premature ventricular complexes Minimal voltage criteria for LVH, may be normal variant Borderline ECG
== END 2019-02-12 09:50 | disposition home or self-care (01) ==
LOC: C.ER 06:02
DX: K43.9 Ventral hernia without obstruction or gangrene (principal); R10.9 Unspecified abdominal pain; I12.9 Hypertensive chronic kidney disease with stage 1 through stage 4 chronic kidney disease, or unspecified chronic kidney disease; I48.91 Unspecified atrial fibrillation; N18.9 Chronic kidney disease, unspecified

== ENCOUNTER 2019-02-17 11:12 | Inpatient (IN) | payer MEDICARE ==
[2019-02-17 11:13] VITALS: BMI 31.8
--- NOTE | 2019-02-17 12:15 | C.PDOC ---
History Of Present Illness 83 y/o F c PMHx Depression, Afib, COPD p/w abdominal pain. States feels funny on L side of abdomen. Denies fever, vomiting. Son at bedside states patient has been difficult to care for at home, requesting evaluation for residential placement. Time Seen by Provider: 02/17/19 11:32 Chief Complaint (Nursing): Abdominal Pain History Per: Patient, Family (son) History/Exam Limitations: no limitations Current Symptoms Are (Timing): Still Present Location Of Pain/Discomfort: LUQ, LLQ Radiation Of Pain To:: None Associated Symptoms: denies: Fever, Vomiting Recent travel outside of the [place]: No Past Medical History Vital Signs: Last Vital Signs Temp 98.1 F 02/17/19 11:32 Pulse 72 02/17/19 11:32 Resp 18 02/17/19 11:32 BP 181/69 H 02/17/19 11:32 Pulse Ox 95 02/17/19 11:32 - Medical History PMH: Anxiety, Arthritis (KNEE), Atrial Fibrillation, Cardia Arrhythmia, COPD, Depression, Diverticulitis, Gastritis, HTN, Hypercholesterolemia, Chronic Kidney Disease, Rheumatoid Arthritis (B/L WRIST/DIGITS) Denies: Diabetes, Hepatitis, HIV, Seizures, Sexually Transmitted Disease Surgical History: Hernia Repair - [facility] Procedures APPLICATION OF SPLINT (09/06/13) VACCINATION NEC (11/20/14) Family History: States: Unknown Family Hx - Social History Hx Tobacco Use: No Hx Alcohol Use: No Hx Substance Use: No - Immunization History Hx Tetanus Toxoid Vaccination: No Hx Influenza Vaccination: Yes Hx Pneumococcal Vaccination: Yes Review Of Systems Except As Marked, All Systems Reviewed And Found Negative. Constitutional: Negative for: Fever Cardiovascular: Negative for: Chest Pain Physical Exam - Physical Exam Additional Physical Exam Comments: Appears: Well, Non-toxic, No Acute Distress, Other (Anxious appearing, morbidly obese) Skin: Warm, Dry, No Rash Head: Normacephalic Eye(s): bilateral: Normal Inspection Oral Mucosa: Moist Cardiovascular: Rhythm Regular, No Murmur Respiratory: Normal Breath Sounds, No Rales, No Rhonchi, No Wheezing Gastrointestinal/Abdominal: Bowel Sounds, Soft, No Tenderness ((-) [place], (-) McBurneys), No Guarding, No Rebound, Hernia (Left upper quadrant/Left periumbilical ventral hernia, mildly TTP, reducible ) Back: Normal Inspection, No CVA Tenderness Extremity: Bilateral: Atraumatic, Normal Color And Temperature Neurological/Psych: Oriented x3 ED Course And Treatment - Laboratory Results Result Diagrams: 02/17/19 12:39 02/17/19 12:39 O2 Sat by Pulse Oximetry: 95 (RA) Pulse Ox Interpretation: Normal - CT Scan/US CT Head/Neck Other Rad Studies (CT/US): Read By Radiologist CT/US Interpretation: FINDINGS: LOWER THORAX: Minimal linear scar/atelectasis in left lower lobe. Very small hiatal hernia. There is a small amount of particulate food matter in the hiatal hernia. Questionable surgical suture material seen at the level of the diaphragmatic hiatus. Uncertain significance. LIVER: Normal size, contour and attenuation. Multiple hepatic capsular calcifications are noted. Uncertain significance. No mass. No biliary dilatation. GALLBLADDER AND BILE DUCTS: Unremarkable. PANCREAS: Moderately a trophic. No mass or ductal dilatation. SPLEEN: Not identified. Question is raised regarding possible prior splenectomy though no surgical clips are seen in the left upper quadrant of the abdomen. ADRENALS: Unremarkable. No mass. KIDNEYS AND URETERS: Multiple right renal cortical cyst, largest 4.9 cm exophytic in the lower pole. 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 This is stable early since 03/31/2016 CT examination. No renal calculus. No hydronephrosis. VASCULATURE: Unremarkable. No aortic aneurysm. There is atherosclerotic calcification of the abdominal aorta. BOWEL: Sigmoid diverticulosis. No evidence of diverticulitis. No bowel obstruction. APPENDIX: Normal appendix. PERITONEUM: There is a large left lateral abdominal wall hernia containing loops of small and large intestine. No obstruction. LYMPH NODES: Unremarkable. No enlarged lymph nodes. BLADDER: Unremarkable. REPRODUCTIVE: Unremarkable postmenopausal uterus. 2.2 cm left ovarian cyst stable since 2016. BONES: No acute fracture. OTHER FINDINGS: None. IMPRESSION: No acute abnormality. Possible prior splenectomy. 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 Sigmoid diverticulosis without evidence of diverticulitis. Large left lateral abdominal wall hernia containing loops of small and large bowel without evidence of obstru ction. Stable left ovarian cyst, 2.2 cm. Medical Decision Making Medical Decision Making: Initial plan: -CT ABD & Pelvis IV Contrast -Blood sent. -CXR -Urinalysis Patient with persistent pain. Spoke with son, states patient difficult to take care at home, will require further social work involvement, perhaps residential placement. Dr. Hutchinson accepts patient to medical service. Disposition - Disposition Disposition: HOME/ ROUTINE Disposition Time: 14:12 Condition: FAIR Forms: [facility] (Cuban) - Clinical Impression Clinical Impression: Abdominal pain
[2019-02-17] MEDS ORDERED: Iodixanol 320 MG/ML 100 ML BOTTLE IV ONE (12:24)
[2019-02-17 12:44] LABS: BASO # 0.1 K/uL (0.0-0.2); BASO % 1.1 % (0.0-2.0); EOS # 0.5 K/uL (0.0-0.7); EOS % 5.9 % (0.0-4.0); HEMOGLOBIN 14.8 g/dL (11.0-16.0); LYMPH # 2.5 K/uL (1.0-4.3); LYMPH % 31.4 % (20.0-40.0); MEAN CELL VOLUME 93.7 fL (81.0-99.0); MEAN CORPUSCULAR HEMOGLOBIN 31.4 pg (27.0-31.0); MEAN CORPUSCULAR HGB CONC 33.5 g/dL (33.0-37.0); MONO # 0.9 K/uL (0.0-0.8); MONO % 10.9 % (0.0-10.0); NEUT % 50.7 % (50.0-75.0); RBC 4.73 Mil/uL (3.80-5.20); RED CELL DISTRIBUTION WIDTH 14.2 % (11.5-14.5); WHITE BLOOD COUNT 7.9 K/uL (4.8-10.8)
[2019-02-17 13:21] LABS: ALBUMIN 3.6 g/dL (3.5-5.0); ALT/SGPT 16 U/L (9-52); AST/SGOT 24 U/L (14-36); BLOOD UREA NITROGEN 16 mg/dL (7-17); CALCIUM 9.4 mg/dl (8.6-10.4); GFR NON-AFRICAN AMERICAN > 60; LIPASE 23 U/L (23-300)
--- NOTE | 2019-02-17 14:32 | CT ---
Date of service: 02/17/2019 PROCEDURE: CT Abdomen and Pelvis with contrast HISTORY: L sided abd pain COMPARISON: 01/17/2019 TECHNIQUE: Contrast dose: 100 mL Visipaque 320 Radiation dose: Total exam DLP = 1103.85 mGy-cm. This CT exam was performed using one or more of the following dose reduction techniques: Automated exposure control, adjustment of the mA and/or kV according to patient size, and/or use of iterative reconstruction technique. FINDINGS: LOWER THORAX: Minimal linear scar/atelectasis in left lower lobe. Very small hiatal hernia. There is a small amount of particulate food matter in the hiatal hernia. Questionable surgical suture material seen at the level of the diaphragmatic hiatus. Uncertain significance. LIVER: Normal size, contour and attenuation. Multiple hepatic capsular calcifications are noted. Uncertain significance. No mass. No biliary dilatation. GALLBLADDER AND BILE DUCTS: Unremarkable. PANCREAS: Moderately atrophic. No mass or ductal dilatation. SPLEEN: Not identified. Question is raised regarding possible prior splenectomy though no surgical clips are seen in the left upper quadrant of the abdomen. ADRENALS: Unremarkable. No mass. KIDNEYS AND URETERS: Multiple right renal cortical cyst, largest 4.9 cm exophytic in the lower pole. 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 This is stable early since 03/31/2016 CT examination. No renal calculus. No hydronephrosis. VASCULATURE: Unremarkable. No aortic aneurysm. There is atherosclerotic calcification of the abdominal aorta. BOWEL: Sigmoid diverticulosis. No evidence of diverticulitis. No bowel obstruction. APPENDIX: Normal appendix. PERITONEUM: There is a large left lateral abdominal wall hernia containing loops of small and large intestine. No obstruction. LYMPH NODES: Unremarkable. No enlarged lymph nodes. BLADDER: Unremarkable. REPRODUCTIVE: Unremarkable postmenopausal uterus. 2.2 cm left ovarian cyst stable since 2016. BONES: No acute fracture. OTHER FINDINGS: None. IMPRESSION: No acute abnormality. Possible prior splenectomy. 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 Sigmoid diverticulosis without evidence of diverticulitis. Large left lateral abdominal wall hernia containing loops of small and large bowel without evidence of obstruction. Stable left ovarian cyst, 2.2 cm.
[2019-02-17 14:49] LABS: SQUAMOUS EPITHIAL 31 /hpf (0-5); URINE BACTERIA FEW (<OCC); URINE BILIRUBIN NEGATIVE (NEGATIVE); URINE CLARITY Turbid (Clear); URINE COLOR Amber (YELLOW); URINE GLUCOSE (UA) NORMAL (Normal); URINE LEUKOCYTE ESTERASE 3+ Leu/uL (Negative); URINE PROTEIN 1+ mg/dL (NEGATIVE); WBC CLUMPS MANY /hpf
[2019-02-17 14:51] LABS: URINE BLOOD 2+ (NEGATIVE)
[2019-02-17 15:24] LABS: BARBITURATES, UR NEGATIVE (NEGATIVE); OPIATES, UR NEGATIVE (NEGATIVE); PHENCYCLIDINE, UR NEGATIVE (NEGATIVE)
[2019-02-17 15:25] LABS: BENZODIAZEPINES, UR POSITIVE (NEGATIVE)
--- NOTE | 2019-02-17 16:25 | RAD ---
Date of service: 02/17/2019 HISTORY: abd pain COMPARISON: 02/09/2019 TECHNIQUE: 1 view obtained. FINDINGS: LUNGS: No active pulmonary disease. PLEURA: No significant pleural effusion identified, no pneumothorax apparent. CARDIOVASCULAR: No aortic atherosclerotic calcification present. Normal cardiac size. No pulmonary vascular congestion. OSSEOUS STRUCTURES: No significant abnormalities. VISUALIZED UPPER ABDOMEN: Normal. OTHER FINDINGS: None. IMPRESSION: No active disease.
[2019-02-17] MEDS ORDERED: metroNIDAZOLE IV 500 mg/100 ml 500 MG/100 ML BAG IVPB SCH (17:00)
--- NOTE | 2019-02-17 20:32 | CP.PCM.HP ---
Present on Admission - Present on Admission Any Indicators Present on Admission: No Past Patient History - Infectious Disease Hx of Infectious Diseases: None - Past Medical History & Family History Past Medical History?: Yes - Past Social History Smoking Status: Unknown If Ever Smoked - CARDIAC Hx Atrial Fibrillation: Yes Hx Cardia Arrhythmia: Yes Hx Hypercholesterolemia: Yes Hx Hypertension: Yes - PULMONARY Hx Chronic Obstructive Pulmonary Disease (COPD): Yes - NEUROLOGICAL Hx Seizures: No - HEENT Hx HEENT Problems: No - RENAL Hx Chronic Kidney Disease: Yes - ENDOCRINE/METABOLIC Hx Endocrine Disorders: No - HEMATOLOGICAL/ONCOLOGICAL Hx Human Immunodeficiency Virus (HIV): No - INTEGUMENTARY Hx Dermatological Problems: No - MUSCULOSKELETAL/RHEUMATOLOGICAL Hx Arthritis: Yes (KNEE) Hx Falls: No Hx Rheumatoid Arthritis: Yes (B/L WRIST/DIGITS) - GASTROINTESTINAL Hx Diverticulitis: Yes Hx Gastritis: Yes - GENITOURINARY/GYNECOLOGICAL Hx Sexually Transmitted Disorders: No - PSYCHIATRIC Hx Anxiety: Yes Hx Depression: Yes Hx Substance Use: No - SURGICAL HISTORY Hx Surgeries: Yes Hx Splenectomy: Yes Other/Comment: bowel surgery 10 yrs ago - ANESTHESIA Hx Anesthesia: Yes Hx Anesthesia Reactions: No Hx Malignant Hyperthermia: No Meds Allergies/Adverse Reactions: Allergies Allergy/AdvReac Type Severity Reaction Status Date / Time Sulfa (Sulfonamide Allergy RASH Verified 02/17/19 11:24 Antibiotics) Results - Vital Signs Recent Vital Signs: Last Vital Signs Temp 97.2 F L 02/17/19 15:50 Pulse 90 02/17/19 15:50 Resp 18 02/17/19 15:50 BP 169/85 H 02/17/19 17:27 Pulse Ox 97 02/17/19 15:50 - Labs Result Diagrams: 02/17/19 12:39 02/17/19 12:39 Labs: Laboratory Results - last 24 hr 02/17/19 02/17/19 02/17/19 12:39 12:39 14:38 WBC 7.9 RBC 4.73 Hgb 14.8 Hct 44.3 MCV 93.7 MCH 31.4 H MCHC 33.5 RDW 14.2 Plt Count 339 MPV 10.0 Neut % (Auto) 50.7 Lymph % (Auto) 31.4 Mccone % (Auto) 10.9 H Eos % (Auto) 5.9 H Baso % (Auto) 1.1 Neut # (Auto) 4.0 Lymph # (Auto) 2.5 Mccone # (Auto) 0.9 H Eos # (Auto) 0.5 Baso # (Auto) 0.1 Sodium 139 Potassium 3.7 Chloride 109 H Carbon Dioxide 25 Anion Gap 9 L BUN 16 Creatinine 0.8 Est GFR ( Amer) > 60 Est GFR (Non-Af Amer) > 60 Random Glucose 93 Calcium 9.4 Phosphorus 2.7 Magnesium 1.8 Total Bilirubin 0.8 AST 24 ALT 16 Alkaline Phosphatase 174 H Total Protein 7.1 Albumin 3.6 Globulin 3.5 Albumin/Globulin Ratio 1.0 Lipase 23 Urine Color Berenice Urine Clarity Turbid Urine pH 5.0 Ur Specific Ferdinand 1.039 H Urine Protein 1+ H Urine Glucose (UA) Normal Urine Ketones Negative Urine Blood 2+ H Urine Nitrate Negative Urine Bilirubin Negative Urine Urobilinogen 4.0 H Ur Leukocyte Esterase 3+ H Urine WBC (Auto) 90 H Urine RBC (Auto) 25 H Urine WBC Clumps (Auto) Many H Ur Squamous Epith Cells 31 H Urine Bacteria Few H Urine Opiates Screen Urine Methadone Screen Ur Barbiturates Screen Ur Phencyclidine Scrn Ur Amphetamines Screen U Benzodiazepines Scrn U Oth Cocaine Metabols U Cannabinoids Screen Alcohol, Quantitative < 10 02/17/19 14:38 WBC RBC Hgb Hct MCV MCH MCHC RDW Plt Count MPV Neut % (Auto) Lymph % (Auto) Mccone % (Auto) Eos % (Auto) Baso % (Auto) Neut # (Auto) Lymph # (Auto) Mccone # (Auto) Eos # (Auto) Baso # (Auto) Sodium Potassium Chloride Carbon Dioxide Anion Gap BUN Creatinine Est GFR ( Amer) Est GFR (Non-Af Amer) Random Glucose Calcium Phosphorus Magnesium Total Bilirubin AST ALT Alkaline Phosphatase Total Protein Albumin Globulin Albumin/Globulin Ratio Lipase Urine Color Urine Clarity Urine pH Ur Specific Ferdinand Urine Protein Urine Glucose (UA) Urine Ketones Urine Blood Urine Nitrate Urine Bilirubin Urine Urobilinogen Ur Leukocyte Esterase Urine WBC (Auto) Urine RBC (Auto) Urine WBC Clumps (Auto) Ur Squamous Epith Cells Urine Bacteria Urine Opiates Screen Negative Urine Methadone Screen Negative Ur Barbiturates Screen Negative Ur Phencyclidine Scrn Negative Ur Amphetamines Screen Negative U Benzodiazepines Scrn Positive U Oth Cocaine Metabols Negative U Cannabinoids Screen Negative Alcohol, Quantitative
[2019-02-17] MEDS: Rosuvastatin Calcium 2.5 mg Tab PO SCH (21:39)
[2019-02-18 00:08] VITALS: RESP 20
--- NOTE | 2019-02-18 05:08 | HP ---
CHIEF COMPLAINT: Lower abdominal pain x2 days, pain is on the left side. HISTORY OF PRESENT ILLNESS: This is an 83-year-old white female with history of COPD, anxiety, depression, atrial fibrillation, hypertension, and hyperlipidemia who is noncompliant with her diet, medication, and followup. The patient has been back and forth to the hospital with multiple medical problems including anxiety, depression, abdominal pain, nausea, vomiting. The patient came back again because for the last 3 days, she is having left lower quadrant abdominal pain, frequency of urination, dysuria, hematuria, pyuria, fevers, chills, rigors, back pain, history of tingling and numbness in the feet. She has generalized weakness. She has frequency of urination. She denies any polydipsia, polyphagia. She denies any history of back pain but she has knee pain. She has tingling and numbness in the feet. She is depressed. She has feeling of hopelessness, helplessness. She is also anxious and she is easily agitated. The patient denies any skin rash. She denies any sneezing, itchy eyes, itchy nose. She denies any history of trauma, fall, loss of consciousness. She denies any history of seizure-like activity. PAST MEDICAL HISTORY: Hypertension, anxiety, depression, hypovitaminosis D. SOCIAL HISTORY: She is a nonsmoker, non-EtOH user. CURRENT MEDICATIONS: Remeron, Lopressor, Pepcid, vitamin D2. PHYSICAL EXAMINATION: GENERAL: An elderly female, in distress with abdominal pain. VITAL SIGNS: Blood pressure 180/82, pulse 90, respiratory rate 18, temperature 97.2. SKIN: Senile turgor. No bruising. No purpura. No petechiae. HEENT: Atraumatic, normocephalic. Negative PERRLA. Negative jaundice. Extraocular movements are intact. NECK: Supple. No JVD. No lymph node. No thyromegaly. No carotid bruits. CHEST WALL: Bilateral symmetrical expansion. No tenderness. No deformity. LUNGS: Bilateral scattered rhonchi. Clear. CARDIOVASCULAR: S1 and S2 plus S3 positive. ABDOMEN: Soft, nontender. Bowel sounds are positive. There is left lower quadrant tenderness with some guarding. No rebound. No rigidity. Bowel sounds are present. RECTAL AND PELVIC: Deferred. EXTREMITIES: +2 nonpitting edema. CENTRAL NERVOUS SYSTEM: Awake, alert and oriented x3. Cranial nerves II through XII are normal. Power 5/5 x4. Plantars are downgoing. IMPRESSION: 1. Acute pyelonephritis. Rule out septicemia. 2. Dehydration. 3. Poorly-controlled hypertension. 4. Anxiety and depression. PLAN: Admit. Detailed orders are written. Seen and examined. Gabriele Hutchinson MD
[2019-02-18] MEDS: Belladonna-Phenobarbital PO SCH ×3 (09:59→17:31)
[2019-02-18] MEDS: Enoxaparin 40 mg Syringe SC SCH (10:00)
[2019-02-18] MEDS ORDERED: Enoxaparin 30 mg Syringe SC SCH (10:00)
--- NOTE | 2019-02-18 10:53 | CP.PCM.PN ---
Subjective - Date & Time of Evaluation Date of Evaluation: 02/18/19 Time of Evaluation: 06:20 - Subjective Subjective: dict Objective - Vital Signs/Intake and Output Vital Signs (last 24 hours): Temp Pulse Resp BP Pulse Ox 98.9 F 75 20 174/92 H 96 02/18/19 07:18 02/18/19 07:18 02/18/19 07:18 02/18/19 08:33 02/18/19 07:18 Intake and Output: 02/18/19 02/18/19 06:59 18:59 Intake Total 540 Balance 540 - Medications Medications: Current Medications Alprazolam (Xanax) 0.5 mg PO TID PRN PRN Reason: Anxiety Last Admin: 02/18/19 04:13 Dose: 0.5 mg Aspirin (Ecotrin) 81 mg PO DAILY [facility] Last Admin: 02/18/19 10:05 Dose: Not Given Belladonna/Phenobarbital () 1 tab PO BID [facility] Last Admin: 02/18/19 10:05 Dose: Not Given Enoxaparin Sodium (Lovenox) 40 mg SC DAILY [facility] Last Admin: 02/18/19 10:00 Dose: Not Given Famotidine (Pepcid) 20 mg IVP Q12 [facility] Last Admin: 02/18/19 10:00 Dose: 20 mg Ceftriaxone Sodium 1 gm/ (Sodium Chloride) 100 mls @ 100 mls/hr IVPB DAILY [facility]; Protocol Last Admin: 02/18/19 10:00 Dose: 100 mls/hr Metoprolol Tartrate (Lopressor) 50 mg PO BID [facility] Mirtazapine (Remeron) 7.5 mg PO HS [facility] Last Admin: 02/17/19 21:40 Dose: 7.5 mg Rosuvastatin Calcium (Crestor) 2.5 mg PO HS [facility] Last Admin: 02/17/19 21:39 Dose: 2.5 mg - Labs Labs: 02/17/19 12:39 02/17/19 12:39
[2019-02-18] MEDS: Rosuvastatin Calcium 2.5 mg Tab PO SCH (21:26)
--- NOTE | 2019-02-19 04:44 | PN ---
DATE: 02/18/2019 SUBJECTIVE: The patient is with abdominal pain, nausea, generalized weakness, palpitation, weakness, dizziness. Blood pressure is high. No fever. No chills. On antibiotics. Pending cultures. PHYSICAL EXAMINATION: VITAL SIGNS: Blood pressure 169/97, pulse 55, respiratory rate 20, temperature 98.3. LUNGS: Bilateral inspiratory and expiratory rhonchi. Decreased air entry. CARDIOVASCULAR SYSTEM: S1 and S2, regular. ABDOMEN: Soft. ASSESSMENT: 1. Urinary tract infection, acute pyelonephritis, rule out sepsis. 2. Dehydration. 3. Hypertension. 4. Anxiety and depression. PLAN: Medical management. Monitor the patient. Gabriele Hutchinson MD
[2019-02-19 06:32] LABS: BLOOD UREA NITROGEN 13 mg/dL (7-17); CALCIUM 9.1 mg/dl (8.6-10.4); GFR NON-AFRICAN AMERICAN > 60
--- NOTE | 2019-02-19 06:32 | CON ---
DATE: 02/18/2019 LOCATION: 359, bed B. I was called for GI consultation by the admitting MD. The patient is seen and fully examined on 02/18/2019. The entire chart is reviewed including but not limited to the most recent lab and radiology study results, current and the previous medication lists, current and the previous medical events, allergy to medication list as well as all the available current and previous medical records. Case was discussed with the staff in the floor at length at the time of my GI consultation on 02/18/2019. HISTORY OF PRESENT ILLNESS: This is an 83-year-old female with multiple complicated past medical history who was admitted to the hospital with recurrent severe abdominal pain, mainly in the midepigastric, right upper quadrant and the left mid quadrant, but no reported active bleeding, vomiting, chest pain or palpitation or significant increase of shortness of breath. The patient still has intermittent period of nausea and dyspepsia. PAST MEDICAL HISTORY: Including mainly, but not limited to, 1. COPD. 2. Cardiac arrhythmias. 3. Hypertension. 4. Atrial fibrillation. 5. Hyperlipidemia with chronic renal disorder. 6. Known history of rheumatoid arthritis, severe anxiety syndrome. 7. Peptic ulcer disease. 8. Status post abdominal hernia repair. FAMILY HISTORY: Noncontributory. SOCIAL HISTORY: No reported recent history of cigarette smoking or alcohol intake. ALLERGIES TO MEDICATIONS: SULFA. CURRENT MEDICATIONS: Post-admission medication list reviewed. LABORATORY DATA: Post-admission lab results showed normal CBC with alkaline phosphatase of 174 and normal lipase level, but abnormal urinalysis. 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 PHYSICAL EXAMINATION: GENERAL: An 83-year-old female, appears to be awake, alert, oriented. VITAL SIGNS: Afebrile with a pulse of 72, respiratory 20 to 22, and blood pressure 166/98. HEENT: Showed pale, and dry oral mucous membranes, nonicteric sclerae. LUNGS: Scattered crepitation. Decreased air entry at bases. HEART: Positive S1 and S2. ABDOMEN: Soft with mild generalized tenderness and mild distention with left-sided abdominal wall hernia, reducible. No other mass or organomegaly. RECTAL: The patient refused. EXTREMITIES: With mild lower extremity edematous changes. No clubbing or cyanosis. NEUROLOGIC: No reported new neurological deficits, sensory or motor. No reported new focal deficits. IMPRESSION: 1. Re-exacerbation of peptic ulcer disease. 2. Abdominal wall hernia. 3. Abnormal CAT scan of the abdomen and pelvis. Please see official report. 4. Diverticulosis with mild diverticulitis clinically with the patient left-sided abdominal tenderness. 6. Multiple past medical histories as mentioned above. SUGGESTIONS: 1. Agree with your plan. 2. Cancer markers. 3. Antireflux measures. 4. The patient may benefit from Bentyl one tablet twice a day in addition to the current medications. Further recommendation to follow. Vic Hayes MD
[2019-02-19 07:16] LABS: HEMOGLOBIN 13.8 g/dL (11.0-16.0); MEAN CELL VOLUME 93.2 fL (81.0-99.0); MEAN CORPUSCULAR HEMOGLOBIN 31.9 pg (27.0-31.0); MEAN CORPUSCULAR HGB CONC 34.3 g/dL (33.0-37.0); MEAN PLATELET VOLUME 10.4 fL (7.2-11.7); RBC 4.33 Mil/uL (3.80-5.20); RED CELL DISTRIBUTION WIDTH 13.7 % (11.5-14.5); WHITE BLOOD COUNT 7.4 K/uL (4.8-10.8)
[2019-02-19] MEDS: Belladonna-Phenobarbital PO SCH ×3 (10:56→17:19)
[2019-02-19] MEDS: Enoxaparin 40 mg Syringe SC SCH (10:57)
[2019-02-19 12:11] LABS: SQUAMOUS EPITHIAL 14 /hpf (0-5); URINE BACTERIA RARE (<OCC); URINE BILIRUBIN NEGATIVE (NEGATIVE); URINE BLOOD NEGATIVE (NEGATIVE); URINE CLARITY Hazy (Clear); URINE COLOR Yellow (YELLOW); URINE GLUCOSE (UA) NORMAL (Normal); URINE LEUKOCYTE ESTERASE 1+ Leu/uL (Negative); URINE PROTEIN NEGATIVE (NEGATIVE); URINE UROBILINOGEN NORMAL mg/dL (0.2-1.0)
--- NOTE | 2019-02-19 14:47 | PN ---
DATE: 02/19/2019 LOCATION: 359, bed B. SUBJECTIVE: This is an 83-year-old female seen and examined in round initially for GI consultation on 02/18/2019, reexamined again today without any significant clinical changes or reported active bleeding, but intermittent period of some abdominal pain with mild and subsequent drop of oral intake with right upper quadrant pain on and off. The patient apparently refused liver ultrasound workup yesterday and today's lab shows normal CBC, normal SMA-7, but recently reported to have abnormal urinalysis. PHYSICAL EXAMINATION: GENERAL: An 83-year-old female. VITAL SIGNS: Afebrile with pulse of 74, respiratory rate 20 to 22, blood pressure of 156/82. HEENT: Showed pale, dry oral mucous membrane. Nonicteric sclerae. LUNGS: Few scattered crepitation. Decreased air entry at bases. HEART: Positive S1 and S2. ABDOMEN: Soft with mild generalized tenderness. No mass or organomegaly. No rebound tenderness or guarding. NEUROLOGIC: No reported new neurological deficit, sensory or motor. IMPRESSION: 1. Recurrent abdominal pain with re-exacerbation of peptic ulcer disease. 2. Abdominal wall hernia. 3. Abnormal CAT scan of the abdomen. 4. Diverticulosis with early stage of mild diverticulitis. 5. Multiple past medical history. 6. Urinary tract infection, to be worked up clearly by Nephrology recruiting operations consultant. PLAN: Further recommendation to follow. It has to be mentioned that the patient is refusing any aggressive GI workup in the meantime. We will observe closely. Vic Hayes MD
--- NOTE | 2019-02-19 20:24 | CP.PCM.PN ---
Subjective - Date & Time of Evaluation Date of Evaluation: 02/19/19 Time of Evaluation: 07:20 - Subjective Subjective: dict Objective - Vital Signs/Intake and Output Vital Signs (last 24 hours): Temp Pulse Resp BP Pulse Ox 98 F 59 L 20 142/78 94 L 02/19/19 16:00 02/19/19 16:00 02/19/19 16:00 02/19/19 16:00 02/19/19 16:00 Intake and Output: 02/19/19 02/20/19 18:59 06:59 Intake Total 350 Balance 350 - Medications Medications: Current Medications Alprazolam (Xanax) 0.5 mg PO TID PRN PRN Reason: Anxiety Last Admin: 02/18/19 15:10 Dose: 0.5 mg Aspirin (Ecotrin) 81 mg PO DAILY [facility] Last Admin: 02/19/19 10:57 Dose: 81 mg Belladonna/Phenobarbital () 1 tab PO BID [facility] Last Admin: 02/19/19 17:19 Dose: Not Given Enoxaparin Sodium (Lovenox) 40 mg SC DAILY [facility] Last Admin: 02/19/19 10:57 Dose: 40 mg Famotidine (Pepcid) 20 mg IVP Q12 [facility] Last Admin: 02/19/19 11:17 Dose: 20 mg Ceftriaxone Sodium 1 gm/ (Sodium Chloride) 100 mls @ 100 mls/hr IVPB DAILY [facility]; Protocol Last Admin: 02/19/19 11:38 Dose: 100 mls/hr Metoprolol Tartrate (Lopressor) 50 mg PO BID [facility] Last Admin: 02/19/19 17:18 Dose: 50 mg Mirtazapine (Remeron) 7.5 mg PO HS [facility] Last Admin: 02/18/19 21:24 Dose: 7.5 mg Rosuvastatin Calcium (Crestor) 2.5 mg PO HS [facility] Last Admin: 02/18/19 21:26 Dose: 2.5 mg - Labs Labs: 02/19/19 06:14 02/19/19 06:14
[2019-02-19] MEDS: Rosuvastatin Calcium 2.5 mg Tab PO SCH (21:22)
--- NOTE | 2019-02-20 02:00 | PN ---
DATE: 02/20/2019 SUBJECTIVE: The patient feels anxious. She is always agitated, combative. Decreased abdominal pain. Decreased nausea and vomiting. PHYSICAL EXAMINATION: VITAL SIGNS: Blood pressure 142/78, pulse 59, respiratory rate 20, temperature 98. LUNGS: Bilateral clear. CARDIOVASCULAR SYSTEM: S1 and S2, irregular. ABDOMEN: Soft. ASSESSMENT: 1. Urinary tract infection, acute pyelonephritis. 2. Atrial fibrillation. 3. Anxiety and depression. PLAN: Medical management. Physical therapy. Gabriele Hutchinson MD
[2019-02-20] MEDS: Enoxaparin 40 mg Syringe SC SCH (09:09)
[2019-02-20] MEDS: Belladonna-Phenobarbital PO SCH ×3 (09:09→17:05)
--- NOTE | 2019-02-20 11:12 | CP.PCM.PN ---
Subjective - Date & Time of Evaluation Date of Evaluation: 02/20/19 Time of Evaluation: 09:30 - Subjective Subjective: GI Fellow PGY5 Progress Note Pt seen and evaluated at bedside, pt very anxious, crying, wanting to speak to Dr. Hutchinson. Pt reports suicidal thoughts and possible attempt and wants a "head" doctor. Pt denies any abdominal pain, N/V, melena, or hematochezia. Pt endorses chronic constipation. ROS: A 12pt ROS was negative except as above Objective - Vital Signs/Intake and Output Vital Signs (last 24 hours): Temp Pulse Resp BP Pulse Ox 97.3 F L 64 20 162/77 H 96 02/20/19 08:03 02/20/19 08:03 02/20/19 08:03 02/20/19 08:03 02/20/19 08:03 Intake and Output: 02/20/19 02/20/19 06:59 18:59 Intake Total 340 Balance 340 - Medications Medications: Current Medications Alprazolam (Xanax) 0.5 mg PO TID PRN PRN Reason: Anxiety Last Admin: 02/20/19 09:42 Dose: 0.5 mg Aspirin (Ecotrin) 81 mg PO DAILY [facility] Last Admin: 02/20/19 09:12 Dose: Not Given Belladonna/Phenobarbital () 1 tab PO BID [facility] Last Admin: 02/20/19 09:12 Dose: Not Given Enoxaparin Sodium (Lovenox) 40 mg SC DAILY [facility] Last Admin: 02/20/19 09:09 Dose: Not Given Famotidine (Pepcid) 20 mg IVP Q12 [facility] Last Admin: 02/20/19 09:12 Dose: Not Given Ceftriaxone Sodium 1 gm/ (Sodium Chloride) 100 mls @ 100 mls/hr IVPB DAILY [facility]; Protocol Last Admin: 02/20/19 09:44 Dose: 100 mls/hr Metoprolol Tartrate (Lopressor) 50 mg PO BID [facility] Last Admin: 02/20/19 09:09 Dose: 50 mg Mirtazapine (Remeron) 7.5 mg PO HS [facility] Last Admin: 02/19/19 21:22 Dose: Not Given Rosuvastatin Calcium (Crestor) 2.5 mg PO [facility] Last Admin: 02/19/19 21:22 Dose: Not Given - Labs Labs: 02/19/19 06:14 02/19/19 06:14 - Constitutional Appears: Non-toxic, No Acute Distress, Agitated - Head Exam Head Exam: ATRAUMATIC, NORMAL INSPECTION, NORMOCEPHALIC - Eye Exam Eye Exam: EOMI, Normal appearance Pupil Exam: PERRL - ENT Exam ENT Exam: Mucous Membranes Moist - Neck Exam Neck Exam: Full ROM, Normal Inspection - Respiratory Exam Respiratory Exam: Clear to Ausculation Bilateral, NORMAL BREATHING PATTERN - Cardiovascular Exam Cardiovascular Exam: REGULAR RHYTHM, RRR, +S1, +S2 - GI/Abdominal Exam GI & Abdominal Exam: Soft, Normal Bowel Sounds. absent: Tenderness, Organomegaly - Rectal Exam Rectal Exam: Deferred - Neurological Exam Neurological Exam: Alert, Awake, Oriented x3 - Psychiatric Exam Psychiatric exam: Anxious, Suicidal Ideation - Skin Skin Exam: Dry, Intact, Normal Color, Warm Assessment and Plan - Assessment and Plan (Free Text) Assessment: 1. Abdominal pain-resolved 2. Chronic constipation 3. UTI 4. Suicide Ideation Plan: -Continue regular diet as tolerated -Recommend Miralax daily for constipation -Discussed increased fiber and water intaje -Abx per primary team -Pt anxious with reports of suicide attempt last month and wants to see a psychiatrist-Dr. Myrick will discuss with Dr. Hutchinson. -No plan for any GI intervention at this time, LFTs wnl, no abdominal US completed -Please call with any questions or concerns
--- NOTE | 2019-02-20 13:05 | CARD ---
APPROVED REPORT Date of service: 02/17/2019 EKG Measurement Heart [id number] <Conclusion> Normal sinus rhythm Moderate voltage criteria for LVH, may be normal variant Borderline ECG
[2019-02-20] MEDS: Rosuvastatin Calcium 2.5 mg Tab PO SCH (21:00)
--- NOTE | 2019-02-20 22:40 | CP.PCM.PN ---
Subjective - Date & Time of Evaluation Date of Evaluation: 02/20/19 Time of Evaluation: 07:20 - Subjective Subjective: dict Objective - Vital Signs/Intake and Output Vital Signs (last 24 hours): Temp Pulse Resp BP Pulse Ox 97.9 F 71 20 107/67 96 02/20/19 17:00 02/20/19 17:00 02/20/19 17:00 02/20/19 17:00 02/20/19 08:03 - Medications Medications: Current Medications Alprazolam (Xanax) 0.5 mg PO TID PRN PRN Reason: Anxiety Last Admin: 02/20/19 09:42 Dose: 0.5 mg Amlodipine Besylate (Norvasc) 5 mg PO DAILY [facility] Last Admin: 02/20/19 12:06 Dose: 5 mg Aspirin (Ecotrin) 81 mg PO DAILY [facility] Last Admin: 02/20/19 09:12 Dose: Not Given Belladonna/Phenobarbital () 1 tab PO BID [facility] Last Admin: 02/20/19 17:05 Dose: Not Given Enoxaparin Sodium (Lovenox) 40 mg SC DAILY [facility] Last Admin: 02/20/19 09:09 Dose: Not Given Famotidine (Pepcid) 20 mg IVP Q12 [facility] Last Admin: 02/20/19 21:00 Dose: Not Given Ceftriaxone Sodium 1 gm/ (Sodium Chloride) 100 mls @ 100 mls/hr IVPB DAILY [facility]; Protocol Last Admin: 02/20/19 09:44 Dose: 100 mls/hr Metoprolol Succinate (Toprol Xl) 100 mg PO DAILY [facility] Mirtazapine (Remeron) 7.5 mg PO HS [facility] Last Admin: 02/20/19 21:00 Dose: Not Given Rosuvastatin Calcium (Crestor) 2.5 mg PO HS [facility] Last Admin: 02/20/19 21:00 Dose: Not Given - Labs Labs: 02/19/19 06:14 02/19/19 06:14
--- NOTE | 2019-02-21 05:38 | PN ---
DATE: 02/21/2019 SUBJECTIVE: The patient is anxious. She is afebrile. Decreased abdominal pain. No nausea or vomiting. PHYSICAL EXAMINATION: VITAL SIGNS: Blood pressure 138/90, pulse 98, respiratory rate 20, temperature 97.5. LUNGS: Clear. CARDIOVASCULAR SYSTEM: S1 and S2 are regular. ABDOMEN: Soft. ASSESSMENT: 1. Acute pyelonephritis. 2. Anxiety and depression. 3. Dehydration. PLAN: Continue antibiotics. Urine culture. Monitor the patient. Gabriele Hutchinson MD
[2019-02-21] MEDS: Metoprolol Succinate 100 mg XL Tab PO SCH (09:19)
[2019-02-21] MEDS: Belladonna-Phenobarbital PO SCH ×2 (09:20→17:50)
[2019-02-21] MEDS: Enoxaparin 40 mg Syringe SC SCH (09:20)
--- NOTE | 2019-02-21 16:45 | CP.PCM.PN ---
Subjective - Date & Time of Evaluation Date of Evaluation: 02/21/19 Time of Evaluation: 16:45 - Subjective Subjective: patient seen and examined at the bedside Objective - Vital Signs/Intake and Output Vital Signs (last 24 hours): Temp Pulse Resp BP Pulse Ox 97.4 F L 95 H 20 143/98 H 95 02/21/19 07:00 02/21/19 07:00 02/21/19 07:00 02/21/19 07:00 02/21/19 07:00 Intake and Output: 02/21/19 02/21/19 06:59 18:59 Intake Total 245 Balance 245 - Medications Medications: Current Medications Alprazolam (Xanax) 0.5 mg PO BID [facility] Amlodipine Besylate (Norvasc) 5 mg PO DAILY [facility] Last Admin: 02/21/19 09:19 Dose: 5 mg Aspirin (Ecotrin) 81 mg PO DAILY [facility] Last Admin: 02/21/19 09:20 Dose: Not Given Belladonna/Phenobarbital () 1 tab PO BID [facility] Last Admin: 02/21/19 09:20 Dose: Not Given Enoxaparin Sodium (Lovenox) 40 mg SC DAILY [facility] Last Admin: 02/21/19 09:20 Dose: Not Given Famotidine (Pepcid) 20 mg IVP Q12 [facility] Last Admin: 02/21/19 09:20 Dose: Not Given Ceftriaxone Sodium 1 gm/ (Sodium Chloride) 100 mls @ 100 mls/hr IVPB DAILY [facility]; Protocol Last Admin: 02/21/19 10:00 Dose: Not Given Metoprolol Succinate (Toprol Xl) 100 mg PO DAILY [facility] Last Admin: 02/21/19 09:19 Dose: 100 mg Mirtazapine (Remeron) 7.5 mg PO HS [facility] Last Admin: 02/20/19 21:00 Dose: Not Given Rosuvastatin Calcium (Crestor) 2.5 mg PO [facility] Last Admin: 02/20/19 21:00 Dose: Not Given - Labs Labs: 02/19/19 06:14 02/19/19 06:14 Assessment and Plan - Assessment and Plan (Free Text) Assessment: PLACE UNDER THE SERVICE OF DR MORGAN -----CALL FOR ADMITTING ORDER CONTINUE HOME MEDICATION NEW PRESCRIPTION GIVEN METOPROLOL INCREASE TO 100 MG PO DAILY ASPIRIN 81 MG PO DAILY AMLODIPINE 5 MG PO DAILY [facility] PROTOCOL CALL DR MORGAN FOR FURTHER ORDER
[2019-02-21] MEDS: Rosuvastatin Calcium 2.5 mg Tab PO SCH (21:11)
--- NOTE | 2019-02-21 21:41 | CP.PCM.PN ---
Subjective - Date & Time of Evaluation Date of Evaluation: 02/21/19 Time of Evaluation: 20:00 - Subjective Subjective: dict Objective - Vital Signs/Intake and Output Vital Signs (last 24 hours): Temp Pulse Resp BP Pulse Ox 97.4 F L 60 20 154/79 H 95 02/21/19 16:00 02/21/19 16:00 02/21/19 16:00 02/21/19 16:00 02/21/19 16:00 - Medications Medications: Current Medications Alprazolam (Xanax) 0.5 mg PO BID [facility] Last Admin: 02/21/19 18:30 Dose: 0.5 mg Amlodipine Besylate (Norvasc) 5 mg PO DAILY [facility] Last Admin: 02/21/19 09:19 Dose: 5 mg Aspirin (Ecotrin) 81 mg PO DAILY [facility] Last Admin: 02/21/19 09:20 Dose: Not Given Belladonna/Phenobarbital () 1 tab PO BID [facility] Last Admin: 02/21/19 17:50 Dose: Not Given Enoxaparin Sodium (Lovenox) 40 mg SC DAILY [facility] Last Admin: 02/21/19 09:20 Dose: Not Given Famotidine (Pepcid) 20 mg IVP Q12 [facility] Last Admin: 02/21/19 21:11 Dose: Not Given Ceftriaxone Sodium 1 gm/ (Sodium Chloride) 100 mls @ 100 mls/hr IVPB DAILY [facility]; Protocol Last Admin: 02/21/19 10:00 Dose: Not Given Metoprolol Succinate (Toprol Xl) 100 mg PO DAILY [facility] Last Admin: 02/21/19 09:19 Dose: 100 mg Mirtazapine (Remeron) 7.5 mg PO HS [facility] Last Admin: 02/21/19 21:11 Dose: Not Given Rosuvastatin Calcium (Crestor) 2.5 mg PO [facility] Last Admin: 02/21/19 21:11 Dose: Not Given - Labs Labs: 02/19/19 06:14 02/19/19 06:14
--- NOTE | 2019-02-21 23:26 | PN ---
DATE: 02/21/2019 LOCATION: 369, bed A. SUBJECTIVE: This is an 83-year-old female seen and examined in rounds without reported significant clinical changes, somewhat agitated and restless with intermittent periods of complaint of abdominal pain on and off but no reported active bleeding. No chest pain or palpitation or significant shortness of breath. It has to be mentioned that the patient appeared to be very anxious and restless with reported dyspepsia but no nausea or vomiting. The entire chart is reviewed including but not limited to the most recent lab and radiology study results, current and the previous medication list, current and the previous medical events and repeat urine analysis showed significant improvement. Today's lab is still pending. PHYSICAL EXAMINATION: GENERAL: An 83-year-old female, afebrile with pulse of 64, respiratory rate 20-22, blood pressure of 146/76. HEENT: Showed pale, dry oral mucoid membrane. Nonicteric sclerae. LUNGS: Few scattered crepitation. Decreased air entry at bases. HEART: Positive S1 and S2. ABDOMEN: Soft with mild generalized tenderness. No mass or organomegaly. No rebound tenderness or guarding. RECTAL: The patient refused. EXTREMITIES: Without significant clubbing, cyanosis or edema. NEUROLOGIC: No reported new neurological deficits, sensory or motor. IMPRESSION: 1. Urinary tract infection, improving gradually. 2. Re-exacerbation of peptic ulcer disease. 3. Severe anxiety syndrome. 4. Reported recent history of suicidal attempt last month. 5. Irritable bowel syndrome, most likely. 6. Abdominal wall hernia by recent history. 7. Reported history of diverticulosis with possible early stage of mild diverticulitis. SUGGESTIONS: 1. Agree with your plan. 2. Full psychiatric evaluation. 3. No need for further aggressive GI workup in the meantime and close observation to follow. Vic Hayes MD
--- NOTE | 2019-02-22 01:38 | PN ---
DATE: 02/21/2019 SUBJECTIVE: The patient is for subacute rehab. She is reluctant. I spoke to son and the patient. The patient will decide soon. In the meantime, the patient is anxious. She is afebrile. No shortness of breath. Decreased urinary symptoms. No nausea, vomiting. No chest pain. She feels better. PHYSICAL EXAMINATION: VITAL SIGNS: Blood pressure 154/79, pulse 60, respiratory rate 20, temperature 99.4. LUNGS: Clear. No rales. No rhonchi. CARDIOVASCULAR SYSTEM: S1, S2 plus S4 positive. ABDOMEN: Soft, nontender. Bowel sounds are positive. ASSESSMENT: 1. Acute pyelonephritis. 2. Anxiety and depression. 3. Hypertension. 4. Hyperlipidemia. PLAN: Continue antibiotics, physical therapy, subacute rehab. Gabriele Hutchinson MD
[2019-02-22 06:34] LABS: BASO # 0.1 K/uL (0.0-0.2); EOS # 0.6 K/uL (0.0-0.7); EOS % 7.2 % (0.0-4.0); HEMOGLOBIN 14.2 g/dL (11.0-16.0); LYMPH # 1.7 K/uL (1.0-4.3); LYMPH % 22.3 % (20.0-40.0); MEAN CELL VOLUME 92.4 fL (81.0-99.0); MEAN CORPUSCULAR HEMOGLOBIN 31.6 pg (27.0-31.0); MEAN CORPUSCULAR HGB CONC 34.2 g/dL (33.0-37.0); MEAN PLATELET VOLUME 9.9 fL (7.2-11.7); NEUT # 4.4 K/uL (1.8-7.0); NEUT % 56.5 % (50.0-75.0); NRBC % 0.1 % (0.0-2.0); RBC 4.5 Mil/uL (3.80-5.20); RED CELL DISTRIBUTION WIDTH 14.2 % (11.5-14.5); WHITE BLOOD COUNT 7.7 K/uL (4.8-10.8)
[2019-02-22 07:00] LABS: ALBUMIN 3.1 g/dL (3.5-5.0); ALT/SGPT 23 U/L (9-52); AST/SGOT 37 U/L (14-36); BLOOD UREA NITROGEN 17 mg/dL (7-17); CALCIUM 8.9 mg/dl (8.6-10.4); GFR NON-AFRICAN AMERICAN > 60
--- NOTE | 2019-02-22 07:31 | CON ---
DATE: 02/21/2019 PSYCHIATRIC CONSULTATION CHIEF COMPLAINT AND REASON FOR CONSULTATION: The patient was referred by Dr. Hutchinson for evaluation of depression and anxiety as well as psych clearance for possible placement in a longterm. HISTORY OF PRESENT ILLNESS: The patient is an 83-year-old female with history of depression, anxiety as well as possible dementia, history of atrial fibrillation, COPD. The patient was admitted here complaining of abdominal pain. The patient is referred for evaluation. The patient is on psych med. She is on Xanax 0.5 mg t.i.d. p.r.n. and Remeron 7.5 mg at bedtime. The patient according to the social worker psychiatric is very irritable, leigh and noncompliant with treatment. Her family is having hard time taking care at home because of her noncompliance. According to the social worker psychiatric, also she was screened because she wrote a note which sounds like a suicidal note recently and was seen by [facility] that was admitted to psych. The patient when seen today denies any suicidal ideation, although she admits to being depressed because of her medical problems. She denies having abdominal pain, but states that sometimes she gets very nervous and takes Xanax p.r.n., but today she is somewhat irritable, she refused. She is selectively compliant with her medications. She says she is going to rehab, the patient's possible transfer to [facility]. PAST PSYCHIATRIC HISTORY: The patient has a history of depression, anxiety. The patient had no prior suicidal attempt although she had a suicidal note she wrote a few months ago. Was taking Xanax and Remeron at home. PAST MEDICAL HISTORY: History of arthritis, atrial fibrillation, arrhythmia, COPD, diverticulitis, gastritis, CKD, hypertension, hypercholesterolemia, dementia DRUG AND ALCOHOL HISTORY: Denies any. ALLERGIES: THE PATIENT IS ALLERGIC TO SULFA. PSYCHOSOCIAL HISTORY: The patient lives with her family. She states that her family is working and cannot take care of her at home. LIST OF CURRENT MEDICATIONS: Include ceftriaxone, Crestor, , Ecotrin, Lovenox, Norvasc, Pepcid, Remeron 7.5 mg at bedtime and also metoprolol, and the patient was taking Xanax 0.5 mg t.i.d. p.r.n. Lab marques, the patient's sodium is 139 on admission. AST as well as ALT within normal limits. Lipase is 23. The patient was seen by GI. Creatinine is 0.8. Her UA initially was positive. The patient had signs of urinary tract infection. Drug screen is positive for benzodiazepine. The patient was taking Xanax at home. Alcohol was negative. REVIEW OF SYSTEMS: CONSTITUTIONAL: The patient is alert, seen in a four-bedded room, leigh, irritable. She states that she is reluctant to go to the rehab, but she said that she came in because she needs to come to the hospital before going to the rehab. SKIN: No pruritus. HEENT: No headache. No dizziness. NECK: Supple. RESPIRATORY: No dyspnea. CARDIOVASCULAR: No chest pain. GASTROINTESTINAL: Not complaining of abdominal pain. Her appetite is variable. No nausea. No vomiting. EXTREMITIES: Moving extremities. MUSCULOSKELETAL: Feels weak. NEUROLOGIC: Alert, forgetful at times, but oriented x2. GENITOURINARY: No dysuria. MENTAL STATUS EXAMINATION: Elderly female who looks her stated age, about 5 feet 2 inches, weighs 180 pounds. Mood is irritable, dysphoric, anxious, somatic. Affect is reactive. Speech is spontaneous. Thought process, forgetful at times. Thought content, no overt psychosis. No suicidal or homicidal ideation. The patient states that she may need to go for longterm placement. Attention and memory seem to be limited. Insight and judgment limited. Impulse control is fair at this time. IMPRESSION: History of recurrent depression, anxiety. PLAN AND RECOMMENDATION: The patient was seen, meds reviewed. We will re-adjust her psych meds. We will discontinue the Xanax p.r.n. and put her on Xanax 0.5 mg b.i.d. standing because the patient is very anxious. May continue her Remeron 7.5 mg at bedtime for depression. Psych marques, she is stable to go to [facility] in [place] for NUVIA and possible long-term placement. She states that her family is having hard time taking care of her at home. The patient eventually because of her medical problems may need longterm placement. She is stable to go to the longterm at this time. Garcia Augustin MD [facility] # [id number] DOROTHY
[2019-02-22 07:50] VITALS: PULSE 65; TEMP 97.8; O2SAT 97
[2019-02-22 07:52] VITALS: BP 135/82
[2019-02-22] MEDS: Metoprolol Succinate 100 mg XL Tab PO SCH (09:00)
[2019-02-22] MEDS: Enoxaparin 40 mg Syringe SC SCH (09:00)
[2019-02-22] MEDS: Belladonna-Phenobarbital PO SCH ×2 (09:00→09:02)
--- NOTE | 2019-02-22 14:02 | PN ---
DATE: 02/22/2019 LOCATION: 369, bed A. SUBJECTIVE: This is an 83-year-old female, who was seen very early today in rounds without reported any significant clinical changes. No reported active bleeding, chest pain or palpitation. The entire chart is reviewed including, but not limited to most recent lab and radiology study results, and today's lab result showed normal CBC with mild elevation of AST 37, alkaline phosphatase 171, and albumin 3.1. PHYSICAL EXAMINATION: GENERAL: An 83-year-old female. The patient apparently resisting discharge home today as she had been stable clinically. VITAL SIGNS: Afebrile with pulse of 68, respiratory rate 20-22, and blood pressure 132/80. HEENT: Showed dry, oral mucous membrane. Nonicteric sclerae. LUNGS: Few scattered crepitation. Decreased air entry at bases. HEART: Positive S1 and S2. ABDOMEN: Soft with slight generalized tenderness. No mass or organomegaly. No rebound tenderness or guarding. EXTREMITIES: Without significant edema, clubbing, or cyanosis. RECTAL: The patient refused. NEUROLOGIC: No reported new neurological deficits, sensory or motor. No reported new focal deficits. IMPRESSION: 1. Peptic ulcer disease. 2. Urinary tract infection, treated . 3. Reported history of irritable bowel syndrome. 4. Abdominal wall hernia, by recent history. 5. Diverticulosis, by history. SUGGESTIONS: 1. Continue current management. 2. For Psychiatry re-evaluation before discharge home. 3. No further aggressive gastrointestinal workup. 4. Further recommendation to follow. Vic Hayes MD
--- NOTE | 2019-02-22 21:35 | CP.PCM.DIS ---
Provider - Provider Date of Admission: 02/17/19 14:42 Attending physician: Gabriele Hutchinson MD Consults: 02/17/19 16:50 Gastroenterology Consult Routine Comment: Consulting Provider: Vic Myrick Consulting Physician: Vic Myrick Reason for Consult: RUQ pain 02/17/19 18:44 Case Management Referral Routine Comment: Physician Instructions: lives alone Reason For Exam: new admit bed bound Reason for Referral: [facility] [employer] Eval 02/19/19 10:17 Case Management Referral Routine Comment: Physician Instructions: Reason For Exam: NUVIA eval Reason for Referral: Discharge Planning 02/20/19 18:17 Psychiatry Consult Routine Comment: Consulting Provider: Garcia Burks Consulting Physician: Garcia Burks Reason for Consult: previous suicide attempt last month Time Spent in preparation of Discharge (in minutes): 30 Hospital Course - Lab Results Lab Results: Micro Results 02/19/19 12:02 Urine,Kidney Urine Culture - Final No Growth (<1,000 CFU/ML) Most Recent Lab Values WBC 7.7 K/uL (4.8-10.8) 02/22/19 06:25 RBC 4.50 Mil/uL (3.80-5.20) 02/22/19 06:25 Hgb 14.2 g/dL (11.0-16.0) 02/22/19 06:25 Hct 41.6 % (34.0-47.0) 02/22/19 06:25 MCV 92.4 fL (81.0-99.0) 02/22/19 06:25 MCH 31.6 pg (27.0-31.0) H 02/22/19 06:25 MCHC 34.2 g/dL (33.0-37.0) 02/22/19 06:25 RDW 14.2 % (11.5-14.5) 02/22/19 06:25 Plt Count 341 K/uL (130-400) 02/22/19 06:25 MPV 9.9 fL (7.2-11.7) 02/22/19 06:25 Neut % (Auto) 56.5 % (50.0-75.0) 02/22/19 06:25 Lymph % (Auto) 22.3 % (20.0-40.0) 02/22/19 06:25 Owen % (Auto) 13.0 % (0.0-10.0) H 02/22/19 06:25 Eos % (Auto) 7.2 % (0.0-4.0) H 02/22/19 06:25 Baso % (Auto) 1.0 % (0.0-2.0) 02/22/19 06:25 Neut # (Auto) 4.4 K/uL (1.8-7.0) 02/22/19 06:25 Lymph # (Auto) 1.7 K/uL (1.0-4.3) 02/22/19 06:25 Owen # (Auto) 1.0 K/uL (0.0-0.8) H 02/22/19 06:25 Eos # (Auto) 0.6 K/uL (0.0-0.7) 02/22/19 06:25 Baso # (Auto) 0.1 K/uL (0.0-0.2) 02/22/19 06:25 Sodium 139 mmol/L (132-148) 02/22/19 06:25 Potassium 3.9 mmol/L (3.6-5.2) 02/22/19 06:25 Chloride 104 mmol/L (98-107) 02/22/19 06:25 Carbon Dioxide 27 mmol/L (22-30) 02/22/19 06:25 Anion Gap 12 (10-20) 02/22/19 06:25 BUN 17 mg/dL (7-17) 02/22/19 06:25 Creatinine 0.8 mg/dL (0.7-1.2) 02/22/19 06:25 Est GFR ( Amer) > 60 02/22/19 06:25 Est GFR (Non-Af Amer) > 60 02/22/19 06:25 POC Glucose (mg/dL) 95 mg/dL (65-110) 02/18/19 21:30 Random Glucose 95 mg/dL (65-105) 02/22/19 06:25 Calcium 8.9 mg/dl (8.6-10.4) 02/22/19 06:25 Phosphorus 2.7 mg/dL (2.5-4.5) 02/17/19 12:39 Magnesium 1.8 mg/dL (1.6-2.3) 02/17/19 12:39 Total Bilirubin 0.6 mg/dL (0.2-1.3) 02/22/19 06:25 AST 37 U/L (14-36) H D 02/22/19 06:25 ALT 23 U/L (9-52) 02/22/19 06:25 Alkaline Phosphatase 171 U/L (38-126) H 02/22/19 06:25 Total Protein 6.3 g/dL (6.3-8.3) 02/22/19 06:25 Albumin 3.1 g/dL (3.5-5.0) L 02/22/19 06:25 Globulin 3.2 gm/dL (2.2-3.9) 02/22/19 06:25 Albumin/Globulin Ratio 1.0 (1.0-2.1) 02/22/19 06:25 Lipase 23 U/L (23-300) 02/17/19 12:39 Urine Color Yellow (YELLOW) 02/19/19 12:02 Urine Clarity Hazy (Clear) 02/19/19 12:02 Urine pH 6.0 (5.0-8.0) 02/19/19 12:02 Ur Specific [place] 1.011 (1.003-1.030) 02/19/19 12:02 Urine Protein Negative mg/dL (NEGATIVE) 02/19/19 12:02 Urine Glucose (UA) Normal mg/dL (Normal) 02/19/19 12:02 Urine Ketones Negative mg/dL (NEGATIVE) 02/19/19 12:02 Urine Blood Negative (NEGATIVE) 02/19/19 12:02 Urine Nitrate Negative (NEGATIVE) 02/19/19 12:02 Urine Bilirubin Negative (NEGATIVE) 02/19/19 12:02 Urine Urobilinogen Normal mg/dL (0.2-1.0) 02/19/19 12:02 Ur Leukocyte Esterase 1+ Jorge Luis/uL (Negative) H 02/19/19 12:02 Urine WBC (Auto) 28 /hpf (0-5) H 02/19/19 12:02 Urine RBC (Auto) < 1 /hpf (0-3) 02/19/19 12:02 Urine WBC Clumps (Auto) Many /hpf (NONE) H 02/17/19 14:38 Ur Squamous Epith Cells 14 /hpf (0-5) H 02/19/19 12:02 Urine Bacteria Rare (<OCC) 02/19/19 12:02 Urine Opiates Screen Negative (NEGATIVE) 02/17/19 14:38 Urine Methadone Screen Negative (NEGATIVE) 02/17/19 14:38 Ur Barbiturates Screen Negative (NEGATIVE) 02/17/19 14:38 Ur Phencyclidine Scrn Negative (NEGATIVE) 02/17/19 14:38 Ur Amphetamines Screen Negative (NEGATIVE) 02/17/19 14:38 U Benzodiazepines Scrn Positive (NEGATIVE) 02/17/19 14:38 U Oth Cocaine Metabols Negative (NEGATIVE) 02/17/19 14:38 U Cannabinoids Screen Negative (NEGATIVE) 02/17/19 14:38 Alcohol, Quantitative < 10 mg/dl (0-10) 02/17/19 12:39 Discharge Exam - Head Exam Head Exam: ATRAUMATIC, NORMAL INSPECTION, NORMOCEPHALIC Discharge Plan - Follow Up Plan Condition: FAIR Disposition: OTHER INSTITUTION Instructions: Acute Abdomen (Belly Pain), Adult (DC) Additional Instructions: PLACE UNDER THE SERVICE OF DR HUTCHINSON -----CALL FOR ADMITTING ORDER CONTINUE HOME MEDICATION NEW PRESCRIPTION GIVEN METOPROLOL INCREASE TO 100 MG PO DAILY ASPIRIN 81 MG PO DAILY AMLODIPINE 5 MG PO DAILY ACTIVITY TOLERATED AND FACILITY PROTOCOL CALL DR HUTCHINSON FOR FURTHER ORDER Referrals: Garcia Burks MD [Staff Provider] - Vic Myrick [Staff Provider] - Gabriele Hutchinson MD [Family Provider] -
== END 2019-02-22 09:12 | disposition designated cancer center or children's hospital (05) | DRG 690 ==
LOC: C.ER 11:12 → C.9E 14:42 → C.3T 15:40
PROVIDERS: ADMIT Internal Medicine; ATTEND Internal Medicine
DX: N10 Acute pyelonephritis (principal); K57.92 Diverticulitis of intestine, part unspecified, without perforation or abscess without bleeding; E86.0 Dehydration; F33.9 Major depressive disorder, recurrent, unspecified; I12.9 Hypertensive chronic kidney disease with stage 1 through stage 4 chronic kidney disease, or unspecified chronic kidney disease; I48.91 Unspecified atrial fibrillation; J44.9 Chronic obstructive pulmonary disease, unspecified; K27.9 Peptic ulcer, site unspecified, unspecified as acute or chronic, without hemorrhage or perforation; K58.1 Irritable bowel syndrome with constipation; R45.851 Suicidal ideations; F41.9 Anxiety disorder, unspecified; K43.9 Ventral hernia without obstruction or gangrene; N18.9 Chronic kidney disease, unspecified; M06.9 Rheumatoid arthritis, unspecified; M54.9 Dorsalgia, unspecified; R31.9 Hematuria, unspecified; E78.5 Hyperlipidemia, unspecified; E78.00 Pure hypercholesterolemia, unspecified; Z91.14 Patient's other noncompliance with medication regimen; Z91.11 Patient's noncompliance with dietary regimen; Z91.19 Patient's noncompliance with other medical treatment and regimen; Z87.11 Personal history of peptic ulcer disease; Z79.82 Long term (current) use of aspirin; Z90.81 Acquired absence of spleen; Z79.899 Other long term (current) drug therapy; Z91.5 Personal history of self-harm